=== PATIENT | male | born 1965 | race Hispanic/Latino ===

== ENCOUNTER 2020-06-02 14:48 | Inpatient (IN) | payer SELFPAY ==
[~2020-06-02] VITALS: Ht 152.4 cm; Wt 85.3 kg
[2020-06-02 15:24] LABS: BASOPHILS % 0.1 % (0.0-1.0); EOSINOPHILS % 0.1 % (0.0-6.0); HEMATOCRIT 41.9 % (38.2-49.6); HEMOGLOBIN 15.2 g/dL (14.0-18.0); LYMPHOCYTES # (AUTO) 1.1 (1.0-3.2); LYMPHOCYTES % 13.3 % (18.0-39.1); MEAN CORPUSCULAR HEMOGLOBIN 32.3 pg (28-32); MEAN CORPUSCULAR HGB CONC 36.3 g/dL (31-35); MONOCYTES # (AUTO) 0.3 (0.2-0.8); MONOCYTES % 3.4 % (4.4-11.3); NEUTROPHILS # (AUTO) 6.6 (2.1-6.9); NEUTROPHILS % 82.6 % (38.7-80.0); PLATELET COUNT 206 x10e3/uL (140-360); RED BLOOD COUNT 4.71 x10e6/uL (4.3-5.7); RED CELL DISTRIBUTION WIDTH 11.6 % (11.7-14.4)
--- NOTE | 2020-06-02 15:40 | Diagnostic Imaging Report ---
EXAM: CHEST SINGLE (PORTABLE) DATE: 06/02/2020 3:22 PM INDICATION: Headache, shortness of breath, fever COMPARISON: None FINDINGS: The trachea is midline. There are patchy airspace opacities identified within the lungs bilaterally with a lower lung zone predominance. There is no evidence for pneumothorax or significant volume pleural effusion. The cardiomediastinal silhouette is within normal limits. No acute osseous abnormality is identified. IMPRESSION: Patchy airspace opacities identified throughout the lungs bilaterally which can be seen in the setting of a multifocal/viral infectious process. Signed by: Dr. Sergei Hudson MD on 06/02/2020 3:36 PM
[2020-06-02 15:50] LABS: ALANINE AMINOTRANSFERASE 32 IU/L (0-55); ALBUMIN 2.7 g/dL (3.5-5.0); ALBUMIN/GLOBULIN RATIO 0.6 (0.8-2.0); ALKALINE PHOSPHATASE 65 IU/L (40-150); ANION GAP 12.4 mmol/L (8-16); BLOOD UREA NITROGEN 9 mg/dL (7-26); BUN/CREATININE RATIO 10 (6-25); CALCIUM 8.7 mg/dL (8.4-10.2); CARBON DIOXIDE 22 mmol/L (22-29); CHLORIDE 101 mmol/L (98-107); CREATININE, SERUM 0.94 mg/dL (0.72-1.25); EST GLOMERULAR FILTRATION RATE > 60 ML/MIN (60-); GLUCOSE 251 mg/dL (74-118); POTASSIUM 3.4 mmol/L (3.5-5.1); SODIUM 132 mmol/L (136-145)
--- NOTE | 2020-06-02 16:03 | Emergency Department Note ---
History of Present Illnes History of Present Illness Chief Complaint: COVID PUI History of Present Illness This is a 55 year old male arrived to the ED with complaints of cough and shortness of breath . Chief Complaint Comment SOB, HEADACHE, FEVER. AAOX4. TESTING FOUR DAYS AGO COVID NEG, BUT SATS 86% RA. PT AMBULATORY. Historian: Patient Arrival Mode: Car Onset (how long ago): day(s) Duration (how long): day(s) Timing of current episode: constant Progression: worsening Chronicity: new Relieving factors: none Exacerbating factors: none Past Medical/Family History Physician Review I have reviewed the patient's past medical and family history. Any updates have been documented here. Past Medical History Recent Fever: No Clinical Suspicion of Infectio: No New/Unexplained Change in Ment: No Past Medical History: Diabetes Social History Smoking Cessation: Current every day smoker Counseling Performed: No Alcohol Use: Social Any Illegal Drug Use: No Physically hurt or threatened: No Other Any Pre-Existing Lines (PICC,: No Review of Systems Review of Systems Constitutional: Reports no symptoms, Reports as per HPI, Reports chills, Reports fever EENTM: Reports no symptoms Cardiovascular: Reports no symptoms Respiratory: Reports as per HPI Gastrointestinal: Reports no symptoms Genitourinary: Reports no symptoms Musculoskeletal: Reports no symptoms Integumentary: Reports no symptoms Neurological: Reports no symptoms Psychological: Reports no symptoms Endocrine: Reports no symptoms Hematological/Lymphatic: Reports no symptoms Physical Exam Related Data Allergies: Coded Allergies: No Known Allergies (Unverified , 06/02/20) Triage Vital Signs Vital Signs Date Time Temp Pulse Resp B/P (MAP) Pulse Ox O2 Delivery O2 Flow Rate FiO2 06/02/20 14:57 100.5 106 28 109/66 86 Room Air 06/02/20 15:22 4.0 Vital signs reviewed: Yes Physical Exam CONSTITUTIONAL Constitutional: Present well-developed, Present well-nourished, Present ill appearing HENT HENT: Present normocephalic, Present atraumatic, Present oropharynx clear/moist, Present nose normal HENT L/R: Present left ext ear normal, Present right ext ear normal EYES Eyes: Reports PERRL, Reports conjunctivae normal NECK Neck: Present ROM normal PULMONARY Pulmonary: Present effort normal, Present respiratory distress CARDIOVASCULAR Cardiovascular: Present regular rhythm, Present heart sounds normal, Present capillary refill normal, Present normal rate GASTROINTESTINAL Abdominal: Present soft, Present nontender, Present bowel sounds normal GENITOURINARY Genitourinary: Present exam deferred SKIN Skin: Present warm, Present dry MUSCULOSKELETAL Musculoskeletal: Present ROM normal NEUROLOGICAL Neurological: Present alert, Present oriented x 3, Present no gross motor or sensory deficits PSYCHOLOGICAL Psychological: Present mood/affect normal, Present judgement normal Results Laboratory Result Diagram: 06/02/20 1504 Laboratory Laboratory Tests Test 06/02/20 15:04 06/02/20 15:00 White Blood Count 8.02 x10e3/uL (4.8-10.8) Red Blood Count 4.71 x10e6/uL (4.3-5.7) Hemoglobin 15.2 g/dL (14.0-18.0) Hematocrit 41.9 % (38.2-49.6) Mean Corpuscular Volume 89.0 fL (81-99) Mean Corpuscular Hemoglobin 32.3 pg (28-32) Mean Corpuscular Hemoglobin Concent 36.3 g/dL (31-35) Red Cell Distribution Width 11.6 % (11.7-14.4) Platelet Count 206 x10e3/uL (140-360) Neutrophils (%) (Auto) 82.6 % (38.7-80.0) Lymphocytes (%) (Auto) 13.3 % (18.0-39.1) Monocytes (%) (Auto) 3.4 % (4.4-11.3) Eosinophils (%) (Auto) 0.1 % (0.0-6.0) Basophils (%) (Auto) 0.1 % (0.0-1.0) Neutrophils # (Auto) 6.6 (2.1-6.9) Lymphocytes # (Auto) 1.1 (1.0-3.2) Monocytes # (Auto) 0.3 (0.2-0.8) Eosinophils # (Auto) 0.0 (0.0-0.4) Basophils # (Auto) 0.0 (0.0-0.1) Absolute Immature Granulocyte (auto 0.04 x10e3/uL (0-0.1) Lab results reviewed: Yes Imaging Imaging results reviewed: Yes Critical Care Time Total Critical Care Time (min): 65 Critical care time exclusive o: separately billable procedures Critcal care necessary due to: respiratory failure Assessment & Plan Medical Decision Making MDM 55-year-old male arrives the ED marked hypoxia, symptoms related to the coronavirus. Patient required 6 L supplemental oxygen, admitted to the Covid unit for respiratory monitoring. Ceftriaxone, Zithromax and Decadron given emergency department. Patient high risk of morbidity and mortality Assessment & Plan Final Impression: (1) COVID-19 (2) Acute respiratory distress Depart Disposition: ADMITTED Last Vital Signs Date Time Temp Pulse Resp B/P (MAP) Pulse Ox O2 Delivery O2 Flow Rate FiO2 06/02/20 15:25 92 Nasal Cannula 6.0 06/02/20 14:57 100.5 106 28 Home Meds Reported Medications Metformin Hcl (METFORMIN HCL) 500 Mg Tablet, 1000 MG PO BID, #60 TAB 06/02/20 DAKOTA SHEARER DO Jun 02, 2020 16:03
--- NOTE | 2020-06-02 16:18 | NUR ---
Recvd patient from ER, AAOx3, Not in any distress, call light in reach
--- NOTE | 2020-06-02 17:40 | NUR ---
Called Dr Larsen, new orders recvd, Dr Dsouza aware about the consult
[2020-06-02 18:08] VITALS: BP 110/76
[2020-06-02] MEDS ORDERED: METFORMIN HCL500 MG PO (18:34)
[2020-06-02] MEDS ORDERED: POTASSIUM CHLORIDE 20 MEQ TAB CR PO SCH (18:45)
[2020-06-02] MEDS ORDERED: SODIUM CHLORIDE 0.9% 1000ML 1,000 ML ONE (18:50)
[2020-06-02] MEDS: SODIUM CHLORIDE 0.9% 1000ML 1,000 ML IV SCH (19:12)
[2020-06-02] MEDS ORDERED: DEXTROSE 50% SYRINGE 50 ML IV PRN (19:15)
--- NOTE | 2020-06-02 19:27 | NUR ---
Patient received lying in bed. AAO x 3. Patient had no complaints of pain. Respirations even and non-labored on 5L NC. Patient instructed to call for assistance when needed. Safety measures in place. Call light within reach.
[2020-06-02] MEDS ORDERED: HYDROCODONE/CHLORPHENIRAMINE 5 ML LIQCR PO PRN (19:30)
[2020-06-02] MEDS ORDERED: ZOLPIDEM TARTRATE 5 MG TAB PO PRN (19:30)
[2020-06-02 20:00] VITALS: BP 134/77
[2020-06-02 20:39] LABS: LYMPHOCYTES % (MANUAL) 10 % (19-48); MONOCYTES % (MANUAL) 7 % (3.4-9.0); NEUTROPHILS % (MANUAL) 80 % (40-74); PLATELET MORPHOLOGY COMMENT NORMAL; RBC MORPHOLOGY COMMENT NORMAL
[2020-06-02 20:40] LABS: PLATELET ESTIMATE ADEQUATE
[2020-06-02] MEDS: CEFTRIAXONE SOD 1 GM/NS 50 ML 50 ML IV SCH (20:41)
--- NOTE | 2020-06-02 20:55 | Consultation ---
DATE OF CONSULTATION: Pulmonary Critical Care consultation CHIEF COMPLAINT: Coughing and headache along with fevers. HISTORY OF PRESENT ILLNESS: The patient is a 55-year-old man. He has a history of recently diagnosed diabetes. He takes metformin. He denies any prior history of asthma or heart disease. He complains of feeling sick for 5 days. He has noted an "uncontrollable cough." He also has some fevers and some dyspnea. He came to the emergency department and was found to have bilateral infiltrates on his chest x-ray, suggestive of viral pneumonia. PAST MEDICAL HISTORY: 1. Diabetes. 2. No prior heart disease. 3. No prior asthma or lung disease. PAST SURGICAL HISTORY: Noncontributory. ALLERGIES: NO KNOWN DRUG ALLERGIES. FAMILY HISTORY: Noncontributory. REVIEW OF SYSTEMS: The patient has fevers. There is some headache. He has no neck pain. He has some dyspnea and some cough. He has no chest pain. He has no nausea or vomiting. He has no leg edema. PHYSICAL EXAMINATION: VITAL SIGNS: The patient is afebrile. The blood pressure is 110/66, saturation is 92%. He is on 5 L. Respiratory rate is 20 to 25. HEENT: Shows no facial swelling or erythema. LYMPHATIC: Shows no submandibular, cervical, or supraclavicular adenopathy. CARDIAC: Reveals regular rate and rhythm with normal S1 and S2. LUNGS: Auscultation of lungs reveals crackles at the bases. There is no wheezing. ABDOMEN: Soft and nontender. There is no rebound or guarding. EXTREMITIES: Shows no leg edema or calf tenderness. There is no cyanosis or clubbing. SKIN: Shows no rashes. NEUROLOGICAL: Shows no focal abnormalities. LABORATORY DATA: BUN to creatinine ratio is normal. Albumin is 2.7. Sodium is 132. White blood cell count is 8 and hemoglobin is 15.2. The platelet count is 206. RADIOGRAPHIC DATA: Chest x-ray shows bilateral infiltrates. IMPRESSION: 1. Viral pneumonia and COVID-19 infection. 2. Diabetes. 3. Headache. PLAN: 1. Oxygen as needed. 2. Lovenox. 3. The patient should be a candidate for remdesivir. 4. Dexamethasone. 5. Rescue inhaler. 6. CT scan of the head. 7. Monitor and control blood sugars. MD BRAYAN Rodriguez/AL /[id number]
[2020-06-02] MEDS: INSULIN LISPRO 100 UNIT/1 ML 3ML VIAL SQ SCH (21:00)
--- NOTE | 2020-06-02 21:06 | Diagnostic Imaging Report ---
CT BRAIN WO HISTORY: Headache COMPARISON: None. TECHNIQUE: Noncontrast axial scans were obtained from skull base to the vertex. Coronal and sagittal reconstructions obtained from the axial data. One or more of the following dose reduction techniques were used: Automated exposure control, adjustment of the mA and/or kV according to patient size, and/or utilization of iterative reconstruction technique. Motion and beam hardening artifacts obscure some details. DISCUSSION: Scalp/Skull: Unremarkable. Brain sulci: Appropriate for patient's age. Ventricles: Normal in size and configuration. No hydrocephalus. Extra-axial spaces: No masses or fluid collections. Carotid siphon calcifications are present. Parenchyma: No abnormal densities. No mass, hemorrhage, or large vascular territory acute infarct. Dural sinuses: No abnormal densities. Sellar/Suprasellar region: Intact. Skull base: Intact. Incidental findings: None. IMPRESSION: No acute intracranial abnormalities. Signed by: Dr. Juancho Dallas M.D. on 06/02/2020 9:02 PM
[2020-06-02] MEDS: ACETAMINOPHEN 325 MG TAB PO PRN ×2 (21:49→22:18)
[2020-06-02] MEDS: AZITHROMYCIN 500MG/NS 250 ML 250 ML IV SCH (22:00)
[2020-06-02] MEDS: ENOXAPARIN SOD INJ 40 MG/0.4 ML SYR SC SCH (22:18)
--- NOTE | 2020-06-02 23:55 | NUR ---
History of present illness Chief complaint: Shortness of breath Fever Cough History of present illness: 55-year-old male with past medical history of diabetes, presented to the ER complaining of about 1 week of worsening shortness of breath, cough, headache, chills and fever, the patient reports he got tested for COVID-19 4 days ago and the results were negative. He denies chest pain, abdominal pain, nausea, vomiting, diarrhea, syncope, loss of consciousness or any other signs and symptoms. Admission vital signs: Temperature 100.5, pulse 106, respirations 20, pulse ox 86% on room air, BP 109/66. Abnormal labs: Hyponatremia 132, hypokalemia 3.4, hyperglycemia 251, hypoalbuminemia 2.7, COVID-19 PCR pending. Chest x-ray: Patchy airspace opacities identified throughout the lungs bilaterally which can be seen in the setting of a multifocal/viral infectious process. Brain CT was normal. Review of systems: Constitutional: Reports fever and chills. HEENT: Reports headache, no nasal congestion, no neck pain. Cardiovascular: no chest pain Respiratory: Reports coughing, shortness of breath. GI: Denies Nausea/V/D, hematemesis, melena : Denies Hematuria, Dysuria, Frequency Musculoskeletal: No signifcant deformity or swelling of the joints. Neuro: Denies Dizziness, Confusion, No focal weakness Psych: No anxiety or depression. Normal mood and affect Skin: No rashes, Itching, Hives Past medical history: Diabetes mellitus. Denies heart disease, denies lung disease. Past surgical history: Noncontributory. Social history: Non-smoker Allergies: No known drug allergies. Physical exam: Vital signs: Temperature 98.9, BP 110/66, respirations 24, saturation 92% on 5 L oxygen. HEENT: No gross abnormalities Neck: Supple no JVD Lungs: Crackles at the lung bases, expanding symmetrically. Heart: Regular rate and rhythm, no murmurs no gallops Abdomen: Soft non tender, no guarding. Extremities: No edema Neurologic: Alert oriented 3, no focal weakness. Psychiatrist: Normal mood, normal judgment. Skin: No rashes Lab data: Hyponatremia 132, hypokalemia 3.4, hyperglycemia 251, hypoalbuminemia 2.7, COVID-19 PCR pending. Imaging: Chest x-ray: Patchy airspace opacities identified throughout the lungs bilaterally which can be seen in the setting of a multifocal/viral infectious process. Brain CT was normal. Assessment: Possible COVID-19 pneumonia Diabetes mellitus Hyperglycemia Hyponatremia Hypokalemia Plan of care: Reconcile home medications Droplet precaution Oxygen as needed BP control Glycemic control Heart rate controlled Pain control Electrolyte control Antibiotics Steroids Inhaler DVT/GI prophylaxis Inflammation markers Serial chest x-rays Pulmonology consult Plan discussed with patient and nursing staff.
[2020-06-03] VITALS (11 sets, daily range): BP systolic 93–126; BP diastolic 61–81
[2020-06-03] MEDS: SODIUM CHLORIDE 0.9% 1000ML 1,000 ML IV SCH (04:54)
[2020-06-03 06:04] LABS: BASOPHILS % 0.1 % (0.0-1.0); EOSINOPHILS # (AUTO) 0.1 (0.0-0.4); EOSINOPHILS % 0.6 % (0.0-6.0); HEMATOCRIT 41.7 % (38.2-49.6); LYMPHOCYTES # (AUTO) 1.4 (1.0-3.2); LYMPHOCYTES % 16.1 % (18.0-39.1); MEAN CORPUSCULAR HEMOGLOBIN 32.5 pg (28-32); MEAN CORPUSCULAR VOLUME 90.3 fL (81-99); MONOCYTES # (AUTO) 0.3 (0.2-0.8); MONOCYTES % 3.9 % (4.4-11.3); NEUTROPHILS # (AUTO) 6.8 (2.1-6.9); NEUTROPHILS % 78.8 % (38.7-80.0); PLATELET COUNT 212 x10e3/uL (140-360); RED BLOOD COUNT 4.62 x10e6/uL (4.3-5.7)
[2020-06-03 06:25] LABS: ALANINE AMINOTRANSFERASE 27 IU/L (0-55); ALBUMIN 2.4 g/dL (3.5-5.0); ALBUMIN/GLOBULIN RATIO 0.5 (0.8-2.0); ALKALINE PHOSPHATASE 64 IU/L (40-150); ANION GAP 12.7 mmol/L (8-16); BLOOD UREA NITROGEN 8 mg/dL (7-26); BUN/CREATININE RATIO 11 (6-25); CALCIUM 8.6 mg/dL (8.4-10.2); CARBON DIOXIDE 22 mmol/L (22-29); CHLORIDE 104 mmol/L (98-107); CREATININE, SERUM 0.74 mg/dL (0.72-1.25); EST GLOMERULAR FILTRATION RATE > 60 ML/MIN (60-); GLUCOSE 181 mg/dL (74-118); POTASSIUM 3.7 mmol/L (3.5-5.1); SODIUM 135 mmol/L (136-145)
[2020-06-03] MEDS: DEXAMETHASONE SOD PHOS INJ 4 MG/ML VIAL IV SCH (06:51)
--- NOTE | 2020-06-03 07:00 | NUR ---
Shift report given to oncoming nurse.
[2020-06-03] MEDS: ENOXAPARIN SOD INJ 40 MG/0.4 ML SYR SC SCH ×2 (09:22→21:10)
[2020-06-03] MEDS: INSULIN LISPRO 100 UNIT/1 ML 3ML VIAL SQ SCH ×4 (09:27→21:11)
--- NOTE | 2020-06-03 09:30 | NUR ---
patient o2 saturation 89% on 5L. switched patient to highflow 12L nc. patient instructed to lay on side or belly as much as possible. o2 up to 94%. wctm.
--- NOTE | 2020-06-03 12:57 | NUR ---
patient switched to airvo. 30/80. saturation 93%
--- NOTE | 2020-06-03 13:00 | Progress Note ---
DATE: Pulmonary Critical Care Progress Note SUBJECTIVE: The patient reports symptomatic improvement. He has less dyspnea, but he is still requiring high-flow nasal cannula. PHYSICAL EXAMINATION: VITAL SIGNS: The blood pressure is 93/77 and saturation is 92% on 12 L. HEENT: Shows no facial swelling or erythema. LYMPHATIC: Shows no submandibular, cervical, or supraclavicular adenopathy. CARDIAC: Reveals regular rate and rhythm with normal S1 and S2. LUNGS: Auscultation of lungs reveals clear breath sounds bilaterally. There is no wheezing. ABDOMEN: Soft and nontender. There is no rebound or guarding. EXTREMITIES: Shows no leg edema or calf tenderness. There is no cyanosis or clubbing. SKIN: Shows no rashes. NEUROLOGICAL: Shows no focal abnormalities. LABORATORY DATA: White blood cell count is 8.62 and the hemoglobin is 15. The platelet count is 212. The BUN to creatinine ratio is normal. The albumin is 2.4. The electrolytes are within normal limits. IMPRESSION: 1. Acute respiratory failure. 2. Viral pneumonia and COVID-19 infection. 3. Diabetes. PLAN: 1. Switch the patient to Airvo. 2. Begin remdesivir. 3. Dexamethasone. 4. Rescue inhaler as needed. 5. Lovenox. Brayden De Dios MD [facility] /[id number]
--- NOTE | 2020-06-03 15:58 | NUR ---
patients oxygen level went to 87% on airvo machine. dr block notified and settings to airvo changed.
--- NOTE | 2020-06-03 16:20 | NUR ---
patient to be moved to ICU. waiting for bed assignment at this time. patient's and daughter updated. will update them with ICU assignment.
--- NOTE | 2020-06-03 18:00 | NUR ---
report called to krystle MOREJON in ICU.
--- NOTE | 2020-06-03 18:17 | NUR ---
lab called results to RN. patient is positive for covid.
--- NOTE | 2020-06-03 18:23 | NUR ---
and daughter updated to new room assignment and +covid results.
--- NOTE | 2020-06-03 19:58 | NUR ---
Patient transferred to CICU --room 14.
[2020-06-03] MEDS: AZITHROMYCIN 500MG/NS 250 ML 250 ML IV SCH (21:09)
[2020-06-03] MEDS: CEFTRIAXONE SOD 1 GM/NS 50 ML 50 ML IV SCH (21:09)
--- NOTE | 2020-06-03 23:13 | NUR ---
Patient seen and evaluated on 06/03/2012 Subjective: The patient is complaining shortness of breath. He was in a prone position at the time of my evaluation. There has been no abdominal pain no nausea vomiting no diarrhea. Objective: Patient alert oriented person time place. Patient in mild respiratory distress. Vital signs blood pressure: 1-70 6/70, respiration 20, pulse 83, temperature 99.0. HEENT: No gross abnormalities Neck: Supple no JVD Lungs: Clear to auscultation Heart: Regular rate and rhythm, no murmurs no gallops Abdomen: Soft non tender, no guarding. Extremities: No edema Neurologic: Alert oriented 3, no focal weakness. Psychiatrist: Normal mood, normal judgment. Skin: No rashes Laboratory data: CBC reviewed 51 0, WBC 6.82, platelet count 212,000. K profile revealed sodium 135, potassium 3.7, chloride 104, CO2 22, BUN 8, creatinine 0.74 Assessment: COVID-19 pneumonia Acute respiratory failure Diabetes mellitus type 2 uncontrolled Hyponatremia resolved Plan of care: Remdisivir Dexamethasone Recent illness. Continue Lovenox
[2020-06-04] VITALS (25 sets, daily range): BP systolic 91–126; BP diastolic 55–91
[2020-06-04 04:14] LABS: BASOPHILS % 0.1 % (0.0-1.0); EOSINOPHILS % 0.2 % (0.0-6.0); HEMATOCRIT 39.7 % (38.2-49.6); HEMOGLOBIN 14.1 g/dL (14.0-18.0); LYMPHOCYTES # (AUTO) 1.3 (1.0-3.2); LYMPHOCYTES % 13.5 % (18.0-39.1); MEAN CORPUSCULAR HEMOGLOBIN 32.1 pg (28-32); MEAN CORPUSCULAR HGB CONC 35.5 g/dL (31-35); MEAN CORPUSCULAR VOLUME 90.4 fL (81-99); MONOCYTES # (AUTO) 0.4 (0.2-0.8); MONOCYTES % 4.1 % (4.4-11.3); NEUTROPHILS # (AUTO) 7.6 (2.1-6.9); NEUTROPHILS % 81.8 % (38.7-80.0); PLATELET COUNT 204 x10e3/uL (140-360); RED BLOOD COUNT 4.39 x10e6/uL (4.3-5.7); RED CELL DISTRIBUTION WIDTH 11.9 % (11.7-14.4)
[2020-06-04 04:33] LABS: ALANINE AMINOTRANSFERASE 26 IU/L (0-55); ALBUMIN 2.2 g/dL (3.5-5.0); ALBUMIN/GLOBULIN RATIO 0.5 (0.8-2.0); ALKALINE PHOSPHATASE 64 IU/L (40-150); ANION GAP 15.7 mmol/L (8-16); BLOOD UREA NITROGEN 13 mg/dL (7-26); BUN/CREATININE RATIO 17 (6-25); CALCIUM 8.5 mg/dL (8.4-10.2); CARBON DIOXIDE 21 mmol/L (22-29); CHLORIDE 104 mmol/L (98-107); CREATININE, SERUM 0.76 mg/dL (0.72-1.25); EST GLOMERULAR FILTRATION RATE > 60 ML/MIN (60-); GLUCOSE 213 mg/dL (74-118); POTASSIUM 4.7 mmol/L (3.5-5.1); SODIUM 136 mmol/L (136-145)
[2020-06-04] MEDS: DEXAMETHASONE SOD PHOS INJ 4 MG/ML VIAL IV SCH (05:52)
[2020-06-04] MEDS: ENOXAPARIN SOD INJ 40 MG/0.4 ML SYR SC SCH ×2 (08:07→20:46)
[2020-06-04] MEDS: INSULIN LISPRO 100 UNIT/1 ML 3ML VIAL SQ SCH ×4 (08:07→20:47)
--- NOTE | 2020-06-04 14:04 | Progress Note ---
DATE: SUBJECTIVE: The patient is now in the Intensive Care Unit. He is on Airvo at 60 L with 90%. He still has some dyspnea. He has some cough. PHYSICAL EXAMINATION: VITAL SIGNS: The blood pressure is 111/73 and the pulse is 64. The saturation is 95%. HEENT: Shows no facial swelling or erythema. The oropharynx is normal. LYMPHATIC: Shows no submandibular, cervical or supraclavicular adenopathy. CARDIAC: Reveals regular rate and rhythm with normal S1 and S2. LUNGS: Auscultation of lungs reveals crackles at the bases. There is no wheezing. ABDOMEN: Soft and nontender. There is no rebound or guarding. EXTREMITIES: Shows no leg edema or calf tenderness. There is no cyanosis or clubbing. SKIN: Shows no rashes. LABORATORY DATA: White blood cell count is 9.2 and hemoglobin is 14.1. The platelet count is 204. BUN to creatinine ratio is normal. The other electrolytes are within normal limits. IMPRESSION: 1. Acute respiratory failure. 2. Viral pneumonia and COVID-19 infection. 3. Diabetes. PLAN: 1. Continue to wean L flow and oxygen as tolerated. 2. Complete dexamethasone. 3. Lovenox. 4. Antibiotics. 5. Rescue inhaler as needed. Brayden De Dios MD [facility] /[id number]
--- NOTE | 2020-06-04 16:22 | NUR ---
Infectious disease consultation this patient Seen and examined chart reviewed events noted he is currently in the intensive. he patient is now in the Intensive Care Unit. He is on Airvo at 60 L with 90%. The patient is a 55-year-old man. He has a history of recently diagnosed diabetes. He takes metformin. He denies any prior history of asthma or heart disease. He complains of feeling sick for more than 2 weeks but she has been getting progressively worse the last 5 days with shortness of breath and cough symptoms . He has noted an "uncontrollable cough." He also has some fevers and some dyspnea. He came to the emergency department and was found to have bilateral infiltrates on his chest x-ray, suggestive of viral pneumonia. patient was admitted early on the floor today he was transferred to ICU I am asked to see him PAST MEDICAL HISTORY: 1. Diabetes. 2. No prior heart disease. 3. No prior asthma or lung disease. PAST SURGICAL HISTORY: Noncontributory. ALLERGIES: NO KNOWN DRUG ALLERGIES. FAMILY HISTORY: Noncontributory. REVIEW OF SYSTEMS: The patient has fevers. There is some headache. He has no neck pain. He has some dyspnea and some cough. He has no chest pain. He has no nausea or vomiting. He has no leg edema. PHYSICAL EXAMINATION: VITAL SIGNS: The patient is afebrile. The blood pressure is 110/66, saturation is 92%. He is on 5 L. Respiratory rate is 20 to 25. HEENT: Shows no facial swelling or erythema. LYMPHATIC: Shows no submandibular, cervical, or supraclavicular adenopathy. CARDIAC: Reveals regular rate and rhythm with normal S1 and S2. LUNGS: Auscultation of lungs reveals crackles at the bases. There is no wheezing. ABDOMEN: Soft and nontender. There is no rebound or guarding. EXTREMITIES: Shows no leg edema or calf tenderness. There is no cyanosis or clubbing. SKIN: Shows no rashes. NEUROLOGICAL: Shows no focal abnormalities. LABORATORY DATA: BUN to creatinine ratio is normal. Albumin is 2.7. Sodium is 132. White blood cell count is 8 and hemoglobin is 15.2. The platelet count is 206. RADIOGRAPHIC DATA: Chest x-ray shows bilateral infiltrates. IMPRESSION: 1. Viral pneumonia and COVID-19 infection. 2. Diabetes. 3. Headache. respiratory failure discussed with medical team and we will Rocephin 1 g daily 5 days azithromycin 5 mg daily for 3 days Decadron 6 kg daily for 10 days Lovenox oxygen as needed daily CBC daily Panel will follow acute the patient isolation for now
--- NOTE | 2020-06-04 17:18 | NUR ---
Date of service: 06/04/2020 Events noted. Chart reviewed. Patient be followed by pulmonary. Presently on airborne at 60 L with 90%. Subjective: The patient is feeling better. Denies nausea, no vomiting, no abdominal pain, no diarrhea Objective: Patient alert oriented to person time place Vital signs: Blood pressure 125/75, respiration 15, pulse 67, temperature 99.0 HEENT: No gross abnormalities Neck: Supple no JVD Lungs: Clear to auscultation Heart: Regular rate and rhythm, no murmurs no gallops Abdomen: Soft non tender, no guarding. Extremities: No edema Neurologic: Alert oriented 3, no focal weakness. Psychiatrist: Normal mood, normal judgment. Skin: No rashes Lab data: CBC revealed hemoglobin 14.1, WBC 9.2; platelet count 204,000 Assessment: COVID-19 pneumonia Acute respiratory failure Diabetes mellitus type 2 uncontrolled Hyponatremia resolved Plan of care: Pulmonary evaluation noted. Plan is to continue to wean L flow and oxygen as tolerated. Remdisivir Dexamethasone Recent illness. Continue Lovenox
[2020-06-04] MEDS: CEFTRIAXONE SOD 1 GM/NS 50 ML 50 ML IV SCH (20:08)
[2020-06-04] MEDS: AZITHROMYCIN 500MG/NS 250 ML 250 ML IV SCH (20:47)
[2020-06-05] VITALS (23 sets, daily range): BP systolic 94–116; BP diastolic 60–76
[2020-06-05] MEDS: DEXAMETHASONE SOD PHOS INJ 4 MG/ML VIAL IV SCH (05:10)
[2020-06-05 06:26] LABS: BASOPHILS % 0.1 % (0.0-1.0); EOSINOPHILS % 0.2 % (0.0-6.0); HEMATOCRIT 39.2 % (38.2-49.6); HEMOGLOBIN 14.8 g/dL (14.0-18.0); LYMPHOCYTES # (AUTO) 1.7 (1.0-3.2); MEAN CORPUSCULAR HEMOGLOBIN 35.9 pg (28-32); MEAN CORPUSCULAR HGB CONC 37.8 g/dL (31-35); MEAN CORPUSCULAR VOLUME 95.1 fL (81-99); MONOCYTES # (AUTO) 0.4 (0.2-0.8); MONOCYTES % 3.7 % (4.4-11.3); NEUTROPHILS # (AUTO) 8.3 (2.1-6.9); NEUTROPHILS % 79.5 % (38.7-80.0); PLATELET COUNT 171 x10e3/uL (140-360); RED BLOOD COUNT 4.12 x10e6/uL (4.3-5.7); RED CELL DISTRIBUTION WIDTH 14.4 % (11.7-14.4)
[2020-06-05 06:37] LABS: ANION GAP 12.7 mmol/L (8-16); BLOOD UREA NITROGEN 17 mg/dL (7-26); BUN/CREATININE RATIO 26 (6-25); CALCIUM 8.5 mg/dL (8.4-10.2); CARBON DIOXIDE 22 mmol/L (22-29); CHLORIDE 105 mmol/L (98-107); CREATININE, SERUM 0.65 mg/dL (0.72-1.25); EST GLOMERULAR FILTRATION RATE > 60 ML/MIN (60-); GLUCOSE 131 mg/dL (74-118); POTASSIUM 3.7 mmol/L (3.5-5.1); SODIUM 136 mmol/L (136-145)
[2020-06-05] MEDS: INSULIN LISPRO 100 UNIT/1 ML 3ML VIAL SQ SCH ×4 (07:39→21:00)
[2020-06-05] MEDS: ENOXAPARIN SOD INJ 40 MG/0.4 ML SYR SC SCH (07:40)
--- NOTE | 2020-06-05 07:46 | Diagnostic Imaging Report ---
EXAMINATION: CHEST SINGLE (PORTABLE) COMPARISON: Chest x-ray 06/02/2020 INDICATION: ^viral pneumonia ^[id number] ^[id number] DISCUSSION: HEART AND MEDIASTINUM: The cardiomediastinal silhouette is unremarkable. LINES: None. LUNGS/PLEURA: Course of the lower interstitial airspace opacities are redemonstrated in a predominantly peripheral pattern. No new findings. BONES AND SOFT TISSUES: Unremarkable. IMPRESSION: Stable airspace opacities consistent with multifocal pneumonia including viral pneumonias. Signed by: Dr. Jb Khan MD on 06/05/2020 7:43 AM
--- NOTE | 2020-06-05 10:07 | NUR ---
infectious disease progress note The patient remains in the intensive care unit oxygen demand He still has some dyspnea. He has some cough. PHYSICAL EXAMINATION: VITAL SIGNS: The blood pressure is 111/73 and the pulse is 64. The saturation is 95%. HEENT: Shows no facial swelling or erythema. The oropharynx is normal. LYMPHATIC: Shows no submandibular, cervical or supraclavicular adenopathy. CARDIAC: Reveals regular rate and rhythm with normal S1 and S2. LUNGS: Auscultation of lungs reveals crackles at the bases. There is no wheezing. ABDOMEN: Soft and nontender. There is no rebound or guarding. EXTREMITIES: Shows no leg edema or calf tenderness. There is no cyanosis or clubbing. SKIN: Shows no rashes. LABORATORY DATA: White blood cell count is 9.2 and hemoglobin is 14.1. The platelet count is 204. BUN to creatinine ratio is normal. The other electrolytes are within normal limits. IMPRESSION: 1. Acute respiratory failure. 2. Viral pneumonia and COVID-19 infection. 3. Diabetes. the patient remains in intensive care unit prognosis remains guarded continue as ordered discussed the medical team continue with oxygen to finish plan of medication
--- NOTE | 2020-06-05 13:48 | Progress Note ---
DATE: 06/05/2020 Internal Medicine Progress Note This is coverage for Dr. Alfred Larsen. SUBJECTIVE: Mr. Hurtado was seen and examined at bedside. Currently, he is on 60 L/minute of oxygen flow. 92% FiO2. The patient is feeling slightly better in terms of work of breathing compared to previous days. He is eating about half his meals. Chest x-ray was also done and is stable over the last 3 days. REVIEW OF SYSTEMS: No headaches. No rash. OBJECTIVE: VITAL SIGNS: Reviewed per the chart record. Physical exam limited, as the patient is coughing without a face mask and due to COVID precautions were taken. IMPRESSION AND PLAN: 1. COVID-19 pneumonitis. 2. Acute respiratory failure, hypoxemic, on advanced oxygen salvage. 3. Diabetes. 4. Hyponatremia, better. 5. Severe hypoalbuminemia. Continue to wean high-flow nasal cannula oxygen as feasible. Steroids per designated Pulmonary or ID expert. Intermittent chest x-rays as needed. The patient is on DVT prophylaxis. Also antibiotics noted. MD CARA Kelly/AL /[id number]
--- NOTE | 2020-06-05 13:53 | Consultation ---
DATE OF CONSULTATION: 06/04/2020 HISTORY OF PRESENT ILLNESS: This patient is a 55-year-old male with history of diabetes mellitus. The patient tells me that he has been sick for more than 2 weeks. The patient comes in with shortness of breath and cough and fever. He came in yesterday and was admitted. He currently moved to intensive care unit. The patient is currently lying in bed comfortably. The patient is on Rocephin, azithromycin, dexamethasone as well as Lovenox. The patient is currently in intensive care unit for worsening condition from last time, he says he is feeling slightly better. The patient is on Airvo at 60 L. REVIEW OF SYSTEMS: Besides the cough, he also fatigues. PHYSICAL EXAMINATION: GENERAL: He is currently alert and oriented. VITALS: Stable, currently afebrile. HEENT: He is not icteric. NECK: Supple. CHEST: Crackles bilaterally. HEART: S1 and S2. ABDOMEN: Soft. Bowel sounds present. EXTREMITIES: No edema. ASSESSMENT AND PLAN: Respiratory failure, COVID-19, diabetes mellitus, bacterial pneumonia. The patient apparently has been sick for a few weeks before he came to us. He is agreed with the current choice of plan. Discussed with the patient and discussed with medical team. We will follow with you. MD MARA Sarmiento/AL /[id number]
--- NOTE | 2020-06-05 19:40 | Progress Note ---
DATE: SUBJECTIVE: The patient does not report any new symptoms. He still has some dyspnea on exertion. He has a mild cough. PHYSICAL EXAMINATION: VITAL SIGNS: The blood pressure is 112/72 and saturation is 92%. His respiratory rate is in the mid 20s. He is on an Airvo at 60 L with 90%. HEENT: Shows no facial swelling or erythema. LYMPHATIC: Shows no submandibular or cervical adenopathy. CARDIAC: Reveals regular rate and rhythm with normal S1 and S2. LUNGS: Auscultation of lungs reveals crackles at the bases. There is no wheezing. ABDOMEN: Soft and nontender. There is no rebound or guarding. EXTREMITIES: Shows no leg edema or calf tenderness. There is no cyanosis or clubbing. SKIN: Shows no rash. NEUROLOGICAL: Shows no focal abnormalities. LABORATORY DATA: CBC is within normal limits. The BUN to creatinine ratio is normal. The other electrolytes are within normal limits. IMPRESSION: 1. Acute respiratory failure. 2. Viral pneumonia and COVID-19 infection. 3. Diabetes. PLAN: 1. Continue to wean oxygen and liter flow as tolerated. 2. Place in prone position. 3. Lovenox. 4. Rescue inhaler as needed. Brayden De Dios MD [facility]/MODL /[id number]
[2020-06-05] MEDS: AZITHROMYCIN 500MG/NS 250 ML 250 ML IV SCH (23:59)
[2020-06-05] MEDS: CEFTRIAXONE SOD 1 GM/NS 50 ML 50 ML IV SCH (23:59)
[2020-06-06] VITALS (24 sets, daily range): BP systolic 68–140; BP diastolic 59–81
[2020-06-06 05:41] LABS: BASOPHILS % 0.2 % (0.0-1.0); EOSINOPHILS # (AUTO) 0.1 (0.0-0.4); EOSINOPHILS % 0.5 % (0.0-6.0); HEMATOCRIT 41.5 % (38.2-49.6); HEMOGLOBIN 14.5 g/dL (14.0-18.0); LYMPHOCYTES # (AUTO) 1.4 (1.0-3.2); LYMPHOCYTES % 11.8 % (18.0-39.1); MEAN CORPUSCULAR HEMOGLOBIN 31.7 pg (28-32); MEAN CORPUSCULAR HGB CONC 34.9 g/dL (31-35); MEAN CORPUSCULAR VOLUME 90.8 fL (81-99); MONOCYTES # (AUTO) 0.4 (0.2-0.8); MONOCYTES % 3.7 % (4.4-11.3); NEUTROPHILS # (AUTO) 9.8 (2.1-6.9); NEUTROPHILS % 82.8 % (38.7-80.0); PLATELET COUNT 223 x10e3/uL (140-360); RED BLOOD COUNT 4.57 x10e6/uL (4.3-5.7); RED CELL DISTRIBUTION WIDTH 11.9 % (11.7-14.4)
[2020-06-06 06:04] LABS: ALANINE AMINOTRANSFERASE 31 IU/L (0-55); ALBUMIN 2.2 g/dL (3.5-5.0); ALBUMIN/GLOBULIN RATIO 0.5 (0.8-2.0); ALKALINE PHOSPHATASE 73 IU/L (40-150); ANION GAP 11.7 mmol/L (8-16); BLOOD UREA NITROGEN 15 mg/dL (7-26); BUN/CREATININE RATIO 23 (6-25); CALCIUM 8.1 mg/dL (8.4-10.2); CARBON DIOXIDE 22 mmol/L (22-29); CHLORIDE 102 mmol/L (98-107); CREATININE, SERUM 0.64 mg/dL (0.72-1.25); EST GLOMERULAR FILTRATION RATE > 60 ML/MIN (60-); GLUCOSE 169 mg/dL (74-118); POTASSIUM 3.7 mmol/L (3.5-5.1); SODIUM 132 mmol/L (136-145)
[2020-06-06] MEDS: DEXAMETHASONE SOD PHOS INJ 4 MG/ML VIAL IV SCH (06:04)
[2020-06-06] MEDS: INSULIN LISPRO 100 UNIT/1 ML 3ML VIAL SQ SCH ×4 (08:30→21:16)
[2020-06-06] MEDS: ENOXAPARIN SOD INJ 40 MG/0.4 ML SYR SC SCH (08:30)
[2020-06-06] MEDS ORDERED: SODIUM CHLORIDE 0.9% 500ML 500 ML IV ONE (12:00)
--- NOTE | 2020-06-06 12:10 | NUR ---
Infectious disease progress note Patient seen and examined chart reviewed Discussed with medical team The patient does not report any new symptoms. He still has some dyspnea on exertion. He has a mild cough. new system otherwise unremarkable PHYSICAL EXAMINATION: patient needs intensive care unit Doing okay VITAL SIGNS: The blood pressure is 112/72 and saturation is 92%. His respiratory rate is in the mid 20s. He is on an Airvo at 60 L with 90%. HEENT: Shows no facial swelling or erythema. Normocephalic LYMPHATIC: Shows no submandibular or cervical adenopathy. CARDIAC: Reveals regular rate and rhythm with normal S1 and S2. LUNGS: Auscultation of lungs reveals crackles at the bases. There is no wheezing. ABDOMEN: Soft and nontender. There is no rebound or guarding. EXTREMITIES: Shows no leg edema or calf tenderness. There is no cyanosis or clubbing. SKIN: Shows no rash. NEUROLOGICAL: Shows no focal abnormalities. LABORATORY DATA: CBC is within normal limits. The BUN to creatinine ratio is normal. The other electrolytes are within normal limits. IMPRESSION: 1. Acute respiratory failure. 2. Viral pneumonia and COVID-19 infection. continue with plan of care as ordered continue with supportive care discussed with medical team this is day #4
--- NOTE | 2020-06-06 12:23 | Progress Note ---
DATE: SUBJECTIVE: The patient remains on Airvo at 60 L with 93%. He still has some dyspnea. PHYSICAL EXAMINATION: VITAL SIGNS: The blood pressure is 111/76 and the saturation is 91% on Airvo as mentioned above. HEENT: No facial swelling or erythema. LYMPHATIC: No submandibular, cervical, or supraclavicular adenopathy. CARDIAC: Regular rate and rhythm with normal S1, S2. LUNGS: Auscultation of lungs reveals rhonchorous breath sounds bilaterally. There is no wheezing. ABDOMEN: Soft, nontender. There is no rebound or guarding. EXTREMITIES: No leg edema or calf tenderness. There is no cyanosis or clubbing. SKIN: No rashes. NEUROLOGICAL: No focal abnormalities. LABORATORY DATA: The BUN to creatinine ratio is normal. The potassium is 3.7 and the other electrolytes within normal limits. Albumin is 2.2. IMPRESSION: 1. Acute respiratory failure. 2. Viral pneumonia and coronavirus disease-19 infection. 3. Diabetes. PLAN: 1. Continue to use prone position as much as possible. 2. Continue Airvo. 3. Lovenox. 4. Rescue inhaler as needed. 5. Monitor and control blood sugars. 6. Judicious use of IV fluids. 7. Dietary consultation regarding nutrition. Brayden De Dios MD [facility]/MODL /[id number]
--- NOTE | 2020-06-06 17:32 | NUR ---
Nutrition Screen Note RD Recommendation for Physician: -Appropriate diet consistency per speech therapy -Recommend ADA diet as appropriate Plan of Care: RD following, monitoring for tolerance and adequacy Nutrition reason for involvement: consult Primary Diagnose(s): acute respiratory distress, COVID-19 PMH: Diabetes. Ht: 70 in Wt: 170 lb BMI: 24.4 kg/m2 IBW:[address] Assessment: (06/06/20) Chart reviewed. Labs and meds reviewed. RD received consult for nutrition assessment. Pt is a 55 year old male admitted with acute respiratory distress and COVID-19. Pt is in the COVID ICU and RD is unable to enter room due to isolation precautions. RD called pt's nurse over the phone. RN stated pt is eating well and is consuming >50% of meals. Speech therapy evaluated pt and recommended a nectar thick liquid diet at this time and a modified barium swallow study be performed to rule out aspiration. Will continue to monitor Current Diet: cardiac diet/nectar thick liquids Malnutrition Evaluation (06/06/20) Unable to fully assess due to isolation precautions. Will re-evaluate at follow-up as appropriate. Diet Education Needs Assessment: RD is available for diet education as needed Nutrition Care Level: low Signed: Venessa Green, RD, LD
--- NOTE | 2020-06-06 20:47 | NUR ---
patient resent in resp distresst sats sustained at 80%, rapid labored breathing, rigourous coughing, with nonrebreather on top of HF at 60L, temp of 100.6 axillary. Mildly confused and lethargic, Sats dropped into 40's. STAT ABG done and patient proned immediately. Placed in reverse trendelenburg, given tylenol for fever and ambien to help rest. Sts currently at 97% in prone position. Dr. De Dios made aware of ABG results .
[2020-06-06] MEDS: AZITHROMYCIN 500MG/NS 250 ML 250 ML IV SCH (21:14)
[2020-06-06 22:56] LABS: ABG HCO3 22 mmol/L (22-26); ABG PCO2 28 mmHg (35-45); ABG PH 7.51 (7.35-7.45); ABG PO2 47 mmHg (80-105); ABG TCO2 23
[2020-06-06] MEDS: CEFTRIAXONE SOD 1 GM/NS 50 ML 50 ML IV SCH (23:24)
[2020-06-07] VITALS (25 sets, daily range): BP systolic 92–121; BP diastolic 54–81
--- NOTE | 2020-06-07 02:46 | Progress Note ---
DATE: 06/06/2020 DATE: 06/06/2020 SUBJECTIVE: Events of June 06, 2020noted. Pulmonology noted. Patient still complains of shortness of breath. OBJECTIVE: VITAL SIGNS: Stable. Blood pressure 109/67, respirations 20, pulse 81, and temperature 100.4. The patient is being followed by Pulmonary, Dr. De Dios and events noted. Presently on AIRVO at 60 L with 93% O2 saturation. The patient's admission revealed the patient is alert and oriented to person, time, and place. The patient in no significant distress. HEENT: Head is normocephalic and atraumatic. No facial swelling. NECK: Supple. No JVD. LUNGS: Clear HEART: Regular rate and rhythm. ABDOMEN: Soft and nontender. EXTREMITIES: No edema. NEURO: Nonfocal. LABORATORY DATA: Chem profile reveals sodium 132, potassium 3.6, chloride 102, CO2 of 22, BUN 15, and creatinine 0.64. Chest x-ray as of 06/05/2020 stable air space opacities consistent with multifocal pneumonia including viral pneumonia ASSESSMENT: 1. Acute respiratory failure. 2. Viral pneumonia, secondary to COVID-19. 3. Diabetes mellitus. PLAN OF CARE: Continue present care. The patient has been placed on prone position. Continue AIRVO. On Lovenox. Continue rescue inhalers. Monitor vital signs. Continue MD PENNY Kraus/AL /[id number] MTDD
[2020-06-07] MEDS: INSULIN LISPRO 100 UNIT/1 ML 3ML VIAL SQ SCH ×4 (08:29→21:00)
[2020-06-07] MEDS: ENOXAPARIN SOD INJ 40 MG/0.4 ML SYR SC SCH (08:29)
[2020-06-07] MEDS: DEXAMETHASONE SOD PHOS INJ 4 MG/ML VIAL IV SCH (08:30)
[2020-06-07] MEDS ORDERED: LACTATED RINGER'S 500 ML INJ ONE (10:30)
--- NOTE | 2020-06-07 10:58 | Progress Note ---
DATE: SUBJECTIVE: The patient is still requiring Airvo at 60 L. FiO2 is set in the low-to-mid 90s. His saturation is 93%. PHYSICAL EXAMINATION: VITAL SIGNS: Blood pressure is 95/64 and heart rate is 86. T-max is 99.7. HEENT: Shows no facial swelling or erythema. The oropharynx is normal. LYMPHATIC: Shows no submandibular, cervical or supraclavicular adenopathy. CARDIAC: Reveals regular rate and rhythm with normal S1 and S2. LUNGS: Auscultation of lungs reveals clear breath sounds bilaterally. There is no wheezing. ABDOMEN: Soft and nontender. There is no rebound or guarding. EXTREMITIES: Shows no leg edema or calf tenderness. There is no cyanosis or clubbing. SKIN: Shows no rashes. NEUROLOGICAL: Shows no focal abnormalities. LABORATORY DATA: White blood cell count is 11.8 and hemoglobin 14.5. The platelet count is 223. The BUN to creatinine ratio is normal. The other electrolytes are within normal limits. Blood sugar is 150 to 263. Albumin is 2.2. IMPRESSION: 1. Acute respiratory failure. 2. Viral pneumonia and COVID-19 infection. 3. Diabetes. PLAN: 1. Use prone position as much as possible. 2. Continue Airvo. 3. Lovenox. 4. Continue rescue inhaler as needed. 5. Monitor and control blood sugars. 6. Continue feedings as needed. 7. Await full evaluation from speech therapy. Brayden De Dios MD [facility] /[id number]
--- NOTE | 2020-06-07 11:02 | NUR ---
DATE: 06/07/2020 SUBJECTIVE: Events of June 07, 2020noted. The patient is complaining of shortness of breath. No chest pain, no nausea, no vomiting, no diarrhea. OBJECTIVE: VITAL SIGNS: Stable. Blood pressure 109/67, respirations 20, pulse 81, and temperature 100.4. The patient is being followed by Pulmonary, Dr. De Dios and events noted. Presently on AIRVO at 60 L with 93% O2 saturation. The patient's admission revealed the patient is alert and oriented to person, time, and place. The patient in no significant distress. HEENT: Head is normocephalic and atraumatic. No facial swelling. NECK: Supple. No JVD. LUNGS: Clear HEART: Regular rate and rhythm. ABDOMEN: Soft and nontender. EXTREMITIES: No edema. NEURO: Nonfocal. LABORATORY DATA: Chem profile reveals sodium 132, potassium 3.6, chloride 102, CO2 of 22, BUN 15, and creatinine 0.64. Chest x-ray as of 06/05/2020 stable air space opacities consistent with multifocal pneumonia including viral pneumonia ASSESSMENT: 1. Acute respiratory failure. 2. Viral pneumonia, secondary to COVID-19. 3. Diabetes mellitus. PLAN OF CARE: Continue present care. The patient has been placed on prone position. Continue AIRVO. On Lovenox. Continue rescue inhalers. Monitor vital signs. Continue feeding as needed. Rescue inhaler.
--- NOTE | 2020-06-07 12:56 | NUR ---
there is infectious disease progress note patient seen and examined chart reviewed. June 07, 2020. Discussed with medical team. The patient is still requiring Airvo at 60 L. FiO2 is set in the low-to-mid 90s. His saturation is 93%. PHYSICAL EXAMINATION: VITAL SIGNS: Blood pressure is 95/64 and heart rate is 86. T-max is 99.7. HEENT: Shows no facial swelling or erythema. The oropharynx is normal. LYMPHATIC: Shows no submandibular, cervical or supraclavicular adenopathy. CARDIAC: Reveals regular rate and rhythm with normal S1 and S2. LUNGS: Auscultation of lungs reveals clear breath sounds bilaterally. There is no wheezing. ABDOMEN: Soft and nontender. There is no rebound or guarding. EXTREMITIES: Shows no leg edema or calf tenderness. There is no cyanosis or clubbing. SKIN: Shows no rashes. NEUROLOGICAL: Shows no focal abnormalities. LABORATORY DATA: White blood cell count is 11.8 and hemoglobin 14.5. The platelet count is 223. The BUN to creatinine ratio is normal. The other electrolytes are within normal limits. Blood sugar is 150 to 263. Albumin is 2.2. IMPRESSION: 1. Acute respiratory failure. 2. Viral pneumonia and COVID-19 infection. 3. Diabetes. to finish the course of dexamethasone for 10 days Rocephin azithromycin as planned
[2020-06-07] MEDS: AZITHROMYCIN 500MG/NS 250 ML 250 ML IV SCH (21:10)
[2020-06-08] VITALS (24 sets, daily range): BP systolic 75–131; BP diastolic 51–77
[2020-06-08 05:00] LABS: BASOPHILS % 0.1 % (0.0-1.0); EOSINOPHILS % 0.1 % (0.0-6.0); HEMATOCRIT 39.7 % (38.2-49.6); HEMOGLOBIN 14.4 g/dL (14.0-18.0); LYMPHOCYTES # (AUTO) 1.1 (1.0-3.2); LYMPHOCYTES % 5.9 % (18.0-39.1); MEAN CORPUSCULAR HEMOGLOBIN 33.6 pg (28-32); MEAN CORPUSCULAR HGB CONC 36.3 g/dL (31-35); MEAN CORPUSCULAR VOLUME 92.5 fL (81-99); MONOCYTES # (AUTO) 0.6 (0.2-0.8); MONOCYTES % 3.3 % (4.4-11.3); NEUTROPHILS # (AUTO) 16.1 (2.1-6.9); NEUTROPHILS % 89.9 % (38.7-80.0); PLATELET COUNT 175 x10e3/uL (140-360); RED BLOOD COUNT 4.29 x10e6/uL (4.3-5.7)
[2020-06-08] MEDS: CEFTRIAXONE SOD 1 GM/NS 50 ML 50 ML IV SCH (05:43)
[2020-06-08 06:02] LABS: ALANINE AMINOTRANSFERASE 30 IU/L (0-55); ALBUMIN 1.9 g/dL (3.5-5.0); ALBUMIN/GLOBULIN RATIO 0.4 (0.8-2.0); ALKALINE PHOSPHATASE 73 IU/L (40-150); ANION GAP 13.9 mmol/L (8-16); BLOOD UREA NITROGEN 13 mg/dL (7-26); BUN/CREATININE RATIO 21 (6-25); CALCIUM 8.3 mg/dL (8.4-10.2); CARBON DIOXIDE 20 mmol/L (22-29); CHLORIDE 101 mmol/L (98-107); CREATININE, SERUM 0.62 mg/dL (0.72-1.25); EST GLOMERULAR FILTRATION RATE > 60 ML/MIN (60-); GLUCOSE 184 mg/dL (74-118); POTASSIUM 3.9 mmol/L (3.5-5.1); SODIUM 131 mmol/L (136-145)
[2020-06-08] MEDS: DEXAMETHASONE SOD PHOS INJ 4 MG/ML VIAL IV SCH (06:34)
--- NOTE | 2020-06-08 09:39 | Diagnostic Imaging Report ---
EXAMINATION: CHEST SINGLE (PORTABLE) INDICATION: Viral pneumonia COMPARISON: Chest radiograph of 06/02/2020 FINDINGS: The initially uploaded image is left/right flipped and marked incorrectly. A corrected image was subsequently uploaded. LINES/TUBES:EKG leads overlie the chest. LUNGS:The lungs are moderately inflated. Increasing multifocal bilateral airspace opacities, most notably on the right. PLEURA:No pleural effusion or pneumothorax. MEDIASTINUM:The cardiomediastinal silhouette appears unchanged in size and shape. BONES/SOFT TISSUES:No acute osseous injury. ABDOMEN:No free air under the diaphragm. Residual oral contrast material in the colon. IMPRESSION: Increasing bilateral multifocal airspace opacities. Signed by: Evi Davis MD on 06/08/2020 9:35 AM
[2020-06-08] MEDS: INSULIN LISPRO 100 UNIT/1 ML 3ML VIAL SQ SCH ×3 (10:04→16:30)
--- NOTE | 2020-06-08 10:06 | NUR ---
DATE: 06/08/2020 Events of June 08, 2020noted. The patient is complaining of shortness of breath. No chest pain, no nausea, no vomiting, no diarrhea. OBJECTIVE: Vital signs: Blood pressure 88/60, respiration 26, pulse 91, afebrile The patient is being followed by Pulmonary, Dr. De Dios and events noted. Presently on AIRVO at 60 L with 93% O2 saturation. The patient's admission revealed the patient is alert and oriented to person, time, and place. The patient in no significant distress. LABORATORY DATA: CBC disclosed, WBC 17.93, hemoglobin 14.4, platelet count 175,000 Chest x-rays: Did reveal increased bilateral multifocal airspace opacities Please medication: Dexamethasone 6 mg IV daily Ceftriaxone 1 g IV every 24 hours Azithromycin 500 mg IV every 24 hours Lovenox 40 g subcutaneously daily Ambien 5 PM p.o. as needed Humulin lispro Tussionex ASSESSMENT: 1. Acute respiratory failure. 2. Viral pneumonia, secondary to COVID-19. 3. Diabetes mellitus. PLAN OF CARE: Pulmonary evaluation noted. Chest x-ray findings worrisome. Continue present care as advised. Pulmonary evaluation noted. On Lovenox. Continue rescue inhalers. Monitor vital signs. Continue feeding as needed. Rescue inhaler.
[2020-06-08] MEDS: ENOXAPARIN SOD INJ 40 MG/0.4 ML SYR SC SCH (10:07)
--- NOTE | 2020-06-08 10:39 | Progress Note ---
DATE: SUBJECTIVE: The patient is now AIRVO. He is on 60 L and 93%. He was in the prone position during the night, but is now supine. OBJECTIVE: VITAL SIGNS: The patient is afebrile. The blood pressure is 90/60 and pulse is 91. Saturation is 91%. He is on AIRVO at 60 L. HEENT: Shows no facial swelling or erythema. LYMPHATIC: Examination shows no submandibular, cervical, or supraclavicular adenopathy. CARDIAC: Reveals a regular rate and rhythm with normal S1 and S2. LUNGS: Auscultation of lungs reveals rhonchus breath sounds bilaterally. There is no wheezing. ABDOMEN: Soft, nontender. There is no rebound or guarding. EXTREMITIES: Shows no leg edema or calf tenderness. There is no cyanosis or clubbing. SKIN: Shows no rashes. NEUROLOGICAL: Shows no focal abnormalities. LABORATORY DATA: White blood cell count is 17.9, hemoglobin is 14.4. The platelet count is 175. The BUN to creatinine ratio is 13 to 0.62 and the carbon dioxide is 20. Albumin is 1.9. ASSESSMENT: 1. Acute respiratory failure. 2. Viral pneumonia and coronavirus disease-19 infection. 3. Diabetes. 4. Oropharyngeal dysphagia. PLAN: 1. Modified barium swallow schedule for today. 2. Continue AIRVO. 3. Use prone position as much as possible. 4. Lovenox. 5. Monitor and control blood sugars. Brayden De Dios MD [facility]/[place] /[id number]
--- NOTE | 2020-06-08 15:08 | NUR ---
e patient is afebrile. The blood pressure is 90/60 and pulse is 91. Saturation is 91%. He is on AIRVO at 60 L. HEENT: Shows no facial swelling or erythema. LYMPHATIC: Examination shows no submandibular, cervical, or supraclavicular adenopathy. CARDIAC: Reveals a regular rate and rhythm with normal S1 and S2. LUNGS: Auscultation of lungs reveals rhonchus breath sounds bilaterally. There is no wheezing. ABDOMEN: Soft, nontender. There is no rebound or guarding. EXTREMITIES: Shows no leg edema or calf tenderness. There is no cyanosis or clubbing. SKIN: Shows no rashes. NEUROLOGICAL: Shows no focal abnormalities. LABORATORY DATA: White blood cell count is 17.9, hemoglobin is 14.4. The platelet count is 175. The BUN to creatinine ratio is 13 to 0.62 and the carbon dioxide is 20. Albumin is 1.9. ASSESSMENT: 1. Acute respiratory failure. 2. Viral pneumonia and coronavirus disease-19 infection.
--- NOTE | 2020-06-08 16:19 | Progress Note ---
DATE: SUBJECTIVE: Mr. Hurtado remains in intensive care unit on the Ventimask. The patient is on 60 L with 90%, prone position. PHYSICAL EXAMINATION: VITAL SIGNS: Stable, afebrile. HEENT: He is not icteric. NECK: Supple. CHEST: Crackles. HEART: S1 and S2. ABDOMEN: Soft. IMPRESSION: Respiratory failure, COVID-19, and diabetes mellitus. Continue with supportive care as ordered. We will follow. MD MARA Sarmiento/MODL /[id number]
[2020-06-08] MEDS ORDERED: BENZOCAINE 20% SPR 60 ML CAN MT ONE (17:30)
[2020-06-08] MEDS ORDERED: DEXMEDETOMIDINE 200MCG/NS 50ML 50 ML IV PRN (17:30)
[2020-06-08] MEDS ORDERED: MIDAZOLAM HCL 5MG/ML 10ML VIAL 100 ML IV ONE (21:08)
[2020-06-08] MEDS ORDERED: FENTANYL 2000MCG/NS 250 250 ML ONE (21:08)
--- NOTE | 2020-06-08 22:17 | Diagnostic Imaging Report ---
EXAM: Abdomen 1 Views INDICATION: ^ngt placement ^[id number] ^2119 ^Y COMPARISON: None IMPRESSION: Nasogastric tube in place with tip projecting over gastric fundus. Oral contrast within large bowel. Bilateral lung airspace opacities. Signed by: Dr. Bigg Bowen MD on 06/08/2020 10:14 PM
--- NOTE | 2020-06-08 22:17 | Diagnostic Imaging Report ---
ADDENDUM #1 The tip of endotracheal tube is approximately 4.1 cm above tee. Signed by: Dr. Bigg Bowen MD on 06/09/2020 5:12 AM ORIGINAL REPORT EXAMINATION: CHEST SINGLE (PORTABLE) INDICATION: ^intubation ^[id number] ^2119 ^Y COMPARISON: Earlier same day FINDINGS: AP view TUBES and LINES: Interval intubation with tip of endotracheal tube in mid trachea. Interval placement of enteric tube with tip projecting over gastric fundus. LUNGS: Low lung volumes diffuse bilateral airspace opacities, right greater than left. PLEURA: No significant pleural effusion or pneumothorax. HEART AND MEDIASTINUM: The cardiomediastinal silhouette is unremarkable. BONES AND SOFT TISSUES: No acute osseous lesion. Soft tissues are unremarkable. UPPER ABDOMEN: No free air under the diaphragm. Oral contrast is seen within bowel. IMPRESSION: Interval intubation and enteric tube placement. No pneumothorax. Not significantly changed diffuse bilateral airspace opacities, representing edema and/or pneumonia. Signed by: Dr. Bigg Bowen MD on 06/08/2020 10:13 PM
--- NOTE | 2020-06-08 22:52 | Operative Report ---
DATE OF PROCEDURE: SURGEON: Brayden De Dios MD PROCEDURE: Endotracheal intubation with GlideScope. PREOPERATIVE DIAGNOSIS: Respiratory failure. POSTOPERATIVE DIAGNOSIS: Respiratory failure. CONSENT: Consent was obtained from the patient and family. MEDICATIONS: 1. Versed 1 mg. 2. Etomidate 20 mg. 3. Succinylcholine 100 mg. DESCRIPTION OF PROCEDURE: The patient was placed in the supine position. He was on placed on AIRVO with 60 L and maximum oxygen along with a non-rebreather. He was desaturating to the 70s to 80s. The patient was switched to an Ambu bag. He was briefly ventilated with an Ambu bag. The 3-0 GlideScope was used to visualize the glottis. An 8.0 endotracheal tube was passed through the cords on the first attempt. There was good CO2 return. There were equal breath sounds bilaterally. The patient was subsequently connected to the ventilator. COMPLICATIONS: None. ESTIMATED BLOOD LOSS: None. Brayden De Dios MD [facility]/[place] /[id number]
[2020-06-08 23:15] LABS: ABG HCO3 18 mmol/L (22-26); ABG PCO2 34 mmHg (35-45); ABG PH 7.31 (7.35-7.45); ABG PO2 50 mmHg (80-105); ABG TCO2 19
[2020-06-09] VITALS (20 sets, daily range): BP systolic 75–118; BP diastolic 52–80
[2020-06-09] MEDS: CEFTRIAXONE SOD 1 GM/NS 50 ML 50 ML IV SCH
[2020-06-09] MEDS: AZITHROMYCIN 500MG/NS 250 ML 250 ML IV SCH
[2020-06-09] MEDS: FENTANYL CITRATE INJ 2,000 MCG in SODIUM CHLORIDE 0.9% 250ML 210 ML IV PRN ×2 (00:05→12:54)
[2020-06-09] MEDS: INSULIN LISPRO 100 UNIT/1 ML 3ML VIAL SQ SCH ×4 (00:06→18:36)
[2020-06-09] MEDS: SODIUM CHLORIDE 0.9% 250ML IRRIG IR SCH ×7 (00:36→23:21)
--- NOTE | 2020-06-09 03:54 | Diagnostic Imaging Report ---
ADDENDUM #1 The tip of endotracheal tube is approximately 7.4 cm above tee. Signed by: Dr. Bigg Bowen MD on 06/09/2020 5:13 AM ORIGINAL REPORT EXAMINATION: CHEST XRAY LINE PLACEMENT INDICATION: ^HANNAH PICC CONFIRMATION ^Y COMPARISON: 06/05/2020 FINDINGS: AP view TUBES and LINES: Endotracheal tube in place with tip at the level of the clavicles. Right PICC with tip projecting over superior SVC. Enteric tube with tip extending beyond the inferior margin of the film. LUNGS: Lungs are well inflated. Diffuse bilateral airspace opacities PLEURA: No significant pleural effusion or pneumothorax. HEART AND MEDIASTINUM: The cardiomediastinal silhouette is unremarkable. BONES AND SOFT TISSUES: No acute osseous lesion. Soft tissues are unremarkable. UPPER ABDOMEN: No free air under the diaphragm. IMPRESSION: Right PICC with tip projecting over superior SVC. No visible pneumothorax. Redemonstration of diffuse bilateral airspace opacities. Signed by: Dr. Bigg Bowen MD on 06/09/2020 3:51 AM
--- NOTE | 2020-06-09 03:56 | Diagnostic Imaging Report ---
ADDENDUM #1 The endotracheal tube tip is approximately 6.8 cm above tee. Signed by: Dr. Bigg Bowen MD on 06/09/2020 5:11 AM ORIGINAL REPORT EXAMINATION: CHEST XRAY LINE PLACEMENT INDICATION: ^HANNAH PICC CONFIRMATION ^Y COMPARISON: 06/08/2020 FINDINGS: AP view TUBES and LINES: Endotracheal tube in place with tip at the level of the clavicles. Right PICC with tip projecting over superior SVC. Enteric tube with tip extending beyond the inferior margin of the film. LUNGS: Lungs are well inflated. Diffuse bilateral airspace opacities PLEURA: No significant pleural effusion or pneumothorax. HEART AND MEDIASTINUM: The cardiomediastinal silhouette is unremarkable. BONES AND SOFT TISSUES: No acute osseous lesion. Soft tissues are unremarkable. UPPER ABDOMEN: No free air under the diaphragm. IMPRESSION: Right PICC with tip projecting over superior SVC. No visible pneumothorax. Redemonstration of diffuse bilateral airspace opacities. Signed by: Dr. Bigg Bowen MD on 06/09/2020 3:52 AM
[2020-06-09 04:17] LABS: BASOPHILS % 0.1 % (0.0-1.0); HEMATOCRIT 38.8 % (38.2-49.6); HEMOGLOBIN 13.2 g/dL (14.0-18.0); LYMPHOCYTES # (AUTO) 0.6 (1.0-3.2); MEAN CORPUSCULAR HEMOGLOBIN 32.1 pg (28-32); MEAN CORPUSCULAR VOLUME 94.4 fL (81-99); MONOCYTES # (AUTO) 0.7 (0.2-0.8); MONOCYTES % 3.2 % (4.4-11.3); NEUTROPHILS # (AUTO) 18.4 (2.1-6.9); NEUTROPHILS % 90.4 % (38.7-80.0); PLATELET COUNT 170 x10e3/uL (140-360); RED BLOOD COUNT 4.11 x10e6/uL (4.3-5.7); RED CELL DISTRIBUTION WIDTH 11.9 % (11.7-14.4)
--- NOTE | 2020-06-09 04:39 | NUR ---
Patient present at shift change in resp distress, sats in 60's sustained, unable to reach therapeutic oxygen levels on airvo and nonrebreather. Respiratory and MD notified of critical sats. Patient intubated with 8.0 ET tube, placement verified by xray, and daughter updated. NG placed to the right nare, placement verified by auscultation and KUB. PICC placement requested, verbally consented over phone, form signed and witnessed by 2 nurses, PICC placed to the right upper arm and placement verified by xray. Permission given to use. Patient sedated at this time, no respiratory distress noted at this time, time con't to monitor.
[2020-06-09 04:45] LABS: ALANINE AMINOTRANSFERASE 22 IU/L (0-55); ALBUMIN 1.7 g/dL (3.5-5.0); ALBUMIN/GLOBULIN RATIO 0.4 (0.8-2.0); ALKALINE PHOSPHATASE 70 IU/L (40-150); ANION GAP 12.6 mmol/L (8-16); BLOOD UREA NITROGEN 22 mg/dL (7-26); BUN/CREATININE RATIO 24 (6-25); CALCIUM 8.1 mg/dL (8.4-10.2); CARBON DIOXIDE 24 mmol/L (22-29); CHLORIDE 102 mmol/L (98-107); CREATININE, SERUM 0.91 mg/dL (0.72-1.25); EST GLOMERULAR FILTRATION RATE > 60 ML/MIN (60-); GLUCOSE 293 mg/dL (74-118); POTASSIUM 4.6 mmol/L (3.5-5.1); SODIUM 134 mmol/L (136-145)
[2020-06-09 04:47] LABS: ABG PCO2 66 mmHg (35-45)
[2020-06-09 04:48] LABS: ABG HCO3 27 mmol/L (22-26); ABG PO2 88 mmHg (80-105); ABG TCO2 28
--- NOTE | 2020-06-09 05:06 | NUR ---
Spoke to radiologist Dr. Bigg Bowen regarding ET tube placement confirmation. He stated it is 5 cm above tee.
--- NOTE | 2020-06-09 05:30 | NUR ---
patient placed in prone position at this time, no distress, to monitor.
[2020-06-09] MEDS ORDERED: NOREPINEPHRINE INJ 4MG/4ML 8 MG in DEXTROSE 5% 250ML 250 ML IV PRN (06:15)
[2020-06-09] MEDS: DEXAMETHASONE SOD PHOS INJ 4 MG/ML VIAL IV SCH (06:37)
[2020-06-09] MEDS: CHOLECALCIFEROL 1,000 UNIT TAB PO SCH (08:04)
[2020-06-09] MEDS: ZINC SULFATE 220 MG CAP PO SCH (08:04)
[2020-06-09] MEDS: ASCORBIC ACID 500 MG TAB PO SCH ×2 (08:04→18:06)
[2020-06-09] MEDS: ENOXAPARIN SOD INJ 40 MG/0.4 ML SYR SC SCH (08:04)
[2020-06-09] MEDS ORDERED: SODIUM CHLORIDE 0.9% 500ML 500 ML IV ONE (08:30)
[2020-06-09] MEDS: MIDAZOLAM HCL 5MG/ML 10ML VIAL 100 ML IV PRN ×3 (08:48→18:23)
[2020-06-09] MEDS ORDERED: ASCORBIC ACID 500 MG TAB PO SCH (09:00)
--- NOTE | 2020-06-09 09:34 | Progress Note ---
DATE: SUBJECTIVE: The patient is now on mechanical ventilation. He required endotracheal intubation last night. He has some hypotension. He received 500 mL of fluid and is on low-dose Levophed. He has a PICC line in place. PHYSICAL EXAMINATION: VITAL SIGNS: The blood pressure now is 56/52, saturation is 100%. He is on a PRVC mode of ventilation at a rate of 26 with a tidal volume of 380 and FiO2 of 100%. His PEEP is set at 10. HEENT: Shows no facial swelling or erythema. There is an oral endotracheal tube. The site looks clean. CARDIAC: Reveals a regular rate and rhythm with normal S1 and S2. LUNGS: Auscultation of lungs reveals rhonchorous breath sounds bilaterally. There is no wheezing. ABDOMEN: Soft and nontender. There is no rebound or guarding. EXTREMITIES: Shows no leg edema or calf tenderness. There is no cyanosis or clubbing. SKIN: Shows no rashes. LABORATORY DATA: White blood cell count is 20.3 and the hemoglobin is 13.2. The platelet count is 170. The BUN to creatinine ratio is 22 to 0.1, and the sodium is 134. The albumin is 1.7. Blood gases; 7.2, 66, 88, and 27. IMPRESSION: 1. Viral pneumonia and COVID-19 infection. 2. Superimposed bacterial pneumonia. 3. Hypotension. 4. Acute respiratory failure. 5. Diabetes. PLAN: 1. Give additional fluid challenge and wean Levophed. 2. Continue current ventilator settings and repeat ABG. 3. Continue to use the prone position. 4. Complete current antibiotics. 5. Continue Lovenox. 6. Continue to monitor and control blood sugars. 7. Case discussed with nursing, Respiratory, Infectious Disease, and family. Greater than 35 minutes in direct critical care time. Brayden De Dios MD LM/AL /[id number]
[2020-06-09] MEDS ORDERED: HEPARIN SOD/SOD CHLORIDE 1,000 ML IV SCH (09:45)
--- NOTE | 2020-06-09 09:48 | NUR ---
Events noted 06/09/20 Date of service: 06/09/2020 The patient is critically ill. The patient was in the ventilator with acute respiratory failure. The patient condition has been discussed with critical care Dr. De Dios. The patient became hypotensive and had to be given 500 mL fluid. He has been placed on low-dose Levophed. Hemodynamically unstable earlier with systolic in the mid 70s/diastolic in the mid 50s. Pulse 101. Temperature 100.2. The patient acutely deteriorated.. The patient was laying down. The patient was on the vent. CBC revealed: Hemoglobin 13.2, WBC 20.36, platelet count 170,000 Sodium 134, potassium 4.6, chloride 102, CO2 24, BUN 22, creatinine 0.91 ASSESSMENT: 1. Acute respiratory failure. 2. Viral pneumonia, secondary to COVID-19. 3. Diabetes mellitus. PLAN OF CARE: The patient is critically ill. The patient seems to have developed secondary pneumonia. Glycemic control. Broad-spectrum biotics.
[2020-06-09] MEDS ORDERED: VANCOMYCIN 1GM/NS 250 ML 250 ML IV ONE (11:30)
--- NOTE | 2020-06-09 12:35 | NUR ---
disinfection disease progress note. Patient seen and examined chart reviewed discussed the medical team. June 09, 2023 Patient admitted to intensive care unit. patient is on vent now The patient is now on mechanical ventilation. He required endotracheal intubation last night. He has some hypotension. He received 500 mL of fluid and is on low-dose Levophed. He has a PICC line in place. PHYSICAL EXAMINATION: VITAL SIGNS: The blood pressure now is 56/52, saturation is 100%. He is on a PRVC mode of ventilation at a rate of 26 with a tidal volume of 380 and FiO2 of 100%. His PEEP is set at 10. HEENT: Shows no facial swelling or erythema. There is an oral endotracheal tube. The site looks clean. CARDIAC: Reveals a regular rate and rhythm with normal S1 and S2. LUNGS: Auscultation of lungs reveals rhonchorous breath sounds bilaterally. There is no wheezing. ABDOMEN: Soft and nontender. There is no rebound or guarding. EXTREMITIES: Shows no leg edema or calf tenderness. There is no cyanosis or clubbing. SKIN: Shows no rashes. LABORATORY DATA: White blood cell count is 20.3 and the hemoglobin is 13.2. The platelet count is 170. The BUN to creatinine ratio is 22 to 0.1, and the sodium is 134. The albumin is 1.7. Blood gases; 7.2, 66, 88, and 27. IMPRESSION: 1. Viral pneumonia and COVID-19 infection. 2. Superimposed bacterial pneumonia. 3. Hypotension. 4. Acute respiratory failure. 5. Diabetes. worse today patient has been sick for more than 2 weeks before he came o ER at this time covid is no longer active in his system he is at risk of aspersion and other ARDS comolicatin will get sputum cultures and start meropenem and vanc
[2020-06-09 13:10] LABS: ABG HCO3 28 mmol/L (22-26); ABG PCO2 73 mmHg (35-45); ABG PH 7.19 (7.35-7.45); ABG PO2 104 mmHg (80-105); ABG TCO2 30
--- NOTE | 2020-06-09 15:19 | Diagnostic Imaging Report ---
EXAMINATION: CHEST SINGLE (PORTABLE) INDICATION: Respiratory failure, intubation COMPARISON: Chest radiograph 06/09/2020 FINDINGS: LINES/TUBES:Endotracheal tube terminates approximately 6 cm above the tee. Enteric tube projects below the diaphragm and out of view. Right PICC line terminates near the superior cavoatrial junction. LUNGS:Unchanged bilateral multifocal airspace opacities. PLEURA:No pleural effusion or pneumothorax. MEDIASTINUM:The cardiomediastinal silhouette appears unchanged in size and shape. BONES/SOFT TISSUES:No acute osseous injury. ABDOMEN:No free air under the diaphragm. IMPRESSION: Endotracheal tube terminates approximately 6 cm above the tee. Other support lines and tubes unchanged. Unchanged bilateral multifocal airspace opacities. Signed by: Evi Davis MD on 06/09/2020 3:16 PM
--- NOTE | 2020-06-09 15:35 | Operative Report ---
DATE OF PROCEDURE: SURGEON: Brayden De Dios MD PROCEDURE: Arterial line placement under ultrasound guidance. PREOPERATIVE DIAGNOSIS: Respiratory failure. POSTOPERATIVE DIAGNOSIS: Respiratory failure. CONSENT: Consent was obtained from the family. MEDICATIONS: The patient was on Versed and fentanyl at the time of the procedure. DESCRIPTION OF PROCEDURE: The patient's wrist was examined with the ultrasound. There was a patent radial artery on the right side. The patient also had patent ulnar artery. Good collateral circulation. The patient was prepped sterilely with chlorhexidine. A sterile drape was used along with sterile gloves and mask. A 20-gauge needle was used to cannulate the radial artery under direct visualization with ultrasound. A wire was passed through the needle and a 20-gauge catheter was placed over the wire by the Seldinger technique. There was good blood return and a normal arterial waveform. COMPLICATIONS: None. ESTIMATED BLOOD LOSS: 5 mL. Brayden De Dios MD [facility]/MODL /[id number]
[2020-06-09] MEDS: MEROPENEM 1GM 100 ML IV SCH ×2 (16:10→22:48)
--- NOTE | 2020-06-09 18:05 | NUR ---
assumed nursing care of patient at 1700 today from hollie jamil rn
[2020-06-09 18:08] LABS: ABG HCO3 29 mmol/L (22-26); ABG PCO2 53 mmHg (35-45); ABG PH 7.34 (7.35-7.45); ABG PO2 77 mmHg (80-105); ABG TCO2 30
[2020-06-09] MEDS: ROCURONIUM BROMIDE 1,250 MG in SODIUM CHLORIDE 0.9% 250ML 125 ML IV SCH ×3 (19:53)
[2020-06-10] VITALS (24 sets, daily range): BP systolic 90–132; BP diastolic 51–69
[2020-06-10] MEDS: SODIUM CHLORIDE 0.9% 250ML IRRIG IR SCH ×6 (03:03→23:30)
[2020-06-10 03:43] LABS: BASOPHILS % 0.1 % (0.0-1.0); HEMATOCRIT 37.1 % (38.2-49.6); HEMOGLOBIN 12.5 g/dL (14.0-18.0); LYMPHOCYTES # (AUTO) 1.3 (1.0-3.2); LYMPHOCYTES % 7.3 % (18.0-39.1); MEAN CORPUSCULAR HEMOGLOBIN 32.4 pg (28-32); MEAN CORPUSCULAR HGB CONC 33.7 g/dL (31-35); MEAN CORPUSCULAR VOLUME 96.1 fL (81-99); MONOCYTES # (AUTO) 0.8 (0.2-0.8); MONOCYTES % 4.3 % (4.4-11.3); NEUTROPHILS # (AUTO) 15.4 (2.1-6.9); NEUTROPHILS % 87.5 % (38.7-80.0); PLATELET COUNT 203 x10e3/uL (140-360); RED BLOOD COUNT 3.86 x10e6/uL (4.3-5.7); RED CELL DISTRIBUTION WIDTH 11.9 % (11.7-14.4)
[2020-06-10 04:01] LABS: ALANINE AMINOTRANSFERASE 20 IU/L (0-55); ALBUMIN 1.4 g/dL (3.5-5.0); ALBUMIN/GLOBULIN RATIO 0.3 (0.8-2.0); ALKALINE PHOSPHATASE 68 IU/L (40-150); ANION GAP 10.4 mmol/L (8-16); BLOOD UREA NITROGEN 15 mg/dL (7-26); BUN/CREATININE RATIO 22 (6-25); CALCIUM 7.7 mg/dL (8.4-10.2); CARBON DIOXIDE 27 mmol/L (22-29); CHLORIDE 100 mmol/L (98-107); CREATININE, SERUM 0.67 mg/dL (0.72-1.25); EST GLOMERULAR FILTRATION RATE > 60 ML/MIN (60-); GLUCOSE 295 mg/dL (74-118); POTASSIUM 4.4 mmol/L (3.5-5.1); SODIUM 133 mmol/L (136-145)
[2020-06-10] MEDS: INSULIN LISPRO 100 UNIT/1 ML 3ML VIAL SQ SCH ×3 (05:32→17:16)
[2020-06-10] MEDS: MEROPENEM 1GM 100 ML IV SCH ×3 (05:33→20:53)
[2020-06-10] MEDS: DEXAMETHASONE SOD PHOS INJ 4 MG/ML VIAL IV SCH (05:33)
--- NOTE | 2020-06-10 08:28 | Diagnostic Imaging Report ---
EXAM: CHEST SINGLE (PORTABLE) DATE: 06/10/2020 4:41 AM INDICATION: Respiratory failure COMPARISON: 06/09/2020 FINDINGS: Endotracheal tube and right-sided PICC line identified in stable position. Enteric tube noted coursing below the diaphragm. The trachea is midline. Again identified are patchy airspace opacities throughout the lungs bilaterally with a lower lung zone predominance. Findings are grossly stable from the prior examination. There is no evidence for pneumothorax or significant volume pleural effusion. The cardiomediastinal silhouette is stable in appearance. No acute osseous abnormality is identified. IMPRESSION: No significant interval change from 06/09/2020. Grossly stable appearing airspace opacities identified throughout the lungs bilaterally. Signed by: Dr. Sergei Hudson MD on 06/10/2020 8:25 AM
[2020-06-10] MEDS: ZINC SULFATE 220 MG CAP PO SCH (08:59)
[2020-06-10] MEDS: CHOLECALCIFEROL 1,000 UNIT TAB PO SCH (08:59)
[2020-06-10] MEDS: ASCORBIC ACID 500 MG TAB PO SCH ×2 (08:59→17:16)
[2020-06-10] MEDS ORDERED: FUROSEMIDE INJ 10 MG/ML 2 ML VIAL IV ONE (09:00)
--- NOTE | 2020-06-10 09:23 | Progress Note ---
DATE: Pulmonary Critical Care Progress Note SUBJECTIVE: The patient is currently in the supine position. He is on a PRVC mode of ventilation at a rate of 30 with a tidal volume of 400 and FiO2 of 100%. His PEEP is set at 12. He is on Levophed at 3 mcg. He is on Versed, fentanyl, and rocuronium. PHYSICAL EXAMINATION: VITAL SIGNS: The blood pressure is 113/60 and the saturation is 95% on the above settings. His T-max is 99.6. HEENT: No facial swelling or erythema. There is an oral endotracheal tube. There is a PICC line in place as well as an arterial line. CARDIAC: Regular rate and rhythm with normal S1, S2. LUNGS: Auscultation of lungs reveals crackles at the bases. There is no wheezing. ABDOMEN: Soft, nontender. There is no rebound or guarding. EXTREMITIES: No leg edema or calf tenderness. There is no cyanosis or clubbing. SKIN: No rashes. NEUROLOGICAL: No focal abnormalities. LABORATORY DATA: Albumin is 1.4. The BUN to creatinine ratio is normal. The sodium is 133. The glucose is 116-270. The platelet count is 203 and hemoglobin is 12.5. The white blood cell count is 17.6. RADIOGRAPHIC DATA: Chest x-ray shows bilateral opacities. IMPRESSION: 1. Acute respiratory failure. 2. Viral pneumonia and coronavirus disease-19 infection. 3. Diabetes. 4. Hypoalbuminemia. PLAN: 1. Place the patient in prone position again today. 2. The patient to receive albumin with a small amount of Lasix. 3. Continue Lovenox. 4. Continue to monitor and control blood sugars. 5. Complete dexamethasone. 6. Continue meropenem. 7. Wean Levophed. 8. Case discussed with nightshift nursing, dayshift nursing, Internal Medicine, Infectious Disease, and family. Greater than 35 minutes in direct critical care time. Brayden De Dios MD [facility]/MAURIL[facility] /[id number]
[2020-06-10] MEDS: MIDAZOLAM HCL 5MG/ML 10ML VIAL 100 ML IV PRN ×2 (10:27→18:55)
[2020-06-10] MEDS: ENOXAPARIN SOD INJ 40 MG/0.4 ML SYR SC SCH ×2 (10:28→20:52)
[2020-06-10] MEDS: ALBUMIN 25% 25GM 100ML 0.25 GM/ML BTL IV SCH ×2 (11:31→17:47)
--- NOTE | 2020-06-10 13:25 | NUR ---
1000: Patient placed in prone position without complications 1100: Levophed gtt stopped, Peter, fentanyl, and versed gtts titrated down as tolerated/compliant with the vent. 1315: Phone discussion with Dr. Trent and patient's daughter regarding patient status. The patient's daughter confirmed that the patient had been sick for 2-3 weeks prior to admission and had been self-isolating at home. He reportedly went to a clinic, where he was diagnosed with diabetes, and COVID was not addressed during this visit. Symptoms had worsened, leading to patient to seek emergency medical care at this hospital.
--- NOTE | 2020-06-10 14:15 | Progress Note ---
DATE: Mr. Hurtado remains on a ventilator. Today, I called his daughter. We talked about him. The patient has been sick for 3 weeks and in the matter of fact, he went to [facility] where he was checked and he was told positive, but latter came back negative and that was confusing for them and then he felt well. He stayed at home and then he got worse again, that is why he came to us and he was admitted. The patient does speak perfect Israeli. When he was in the emergency room, I did get the history from him. The patient is currently intubated and sedated. This is day #8. I had a long discussion with the patient's daughter. We need to give the time. We will do our best. The patient was recently diagnosed also with diabetes. He is on meropenem, dexamethasone to finish it for 10 days. Seven days of current choice of antibiotic, 10 days of dexamethasone. Supportive care. Reassess daily. Answered all her questions. MD MARA Sarmiento/MODL /[id number]
[2020-06-10 14:48] LABS: ABG HCO3 30 mmol/L (22-26); ABG PCO2 53 mmHg (35-45); ABG PH 7.37 (7.35-7.45); ABG PO2 74 mmHg (80-105); ABG TCO2 32
--- NOTE | 2020-06-10 15:38 | Diagnostic Imaging Report ---
EXAM: CHEST SINGLE (PORTABLE) DATE: 06/10/2020 3:16 PM INDICATION: Respiratory distress, concern for pneumothorax. COMPARISON: 06/10/2020 at 0441 FINDINGS: Endotracheal tube and right-sided PICC line identified in stable position. Enteric tube noted coursing below the diaphragm. Stable appearing airspace opacities identified throughout the lungs bilaterally. There is no evidence for pneumothorax or significant pleural effusion. The cardiomediastinal silhouette is stable in appearance. The osseous structures are intact. IMPRESSION: No significant interval change from the prior examination from earlier 06/10/2020. Specifically, no evidence for pneumothorax. Signed by: Dr. Sergei Hudson MD on 06/10/2020 3:35 PM
--- NOTE | 2020-06-10 16:34 | NUR ---
Nutrition Intervention Note RD Recommendation(s) for Physician: -Recommend modifying TF to Vital AF 1.2 @ goal rate of 60 mL/hr (provides 1728 kcal, 108 g protein) -Fluid management per MD Plan of Care: RD following, monitoring for tolerance and adequacy, tube feed recommendation Nutrition reason for involvement: enteral nutrition RD Assessment 06/10: Early follow up due to initiation of enteral nutrition. Pt is now intubated and tube feed order was placed yesterday per chart. Tube feed recommendations provided. Will continue to monitor (06/06/20) Chart reviewed. Labs and meds reviewed. RD received consult for nutrition assessment. Pt is a 55 year old male admitted with acute respiratory distress and COVID-19. Pt is in the [facility] ICU and RD is unable to enter room due to isolation precautions. RD called pt's nurse over the phone. RN stated pt is eating well and is consuming >50% of meals. Speech therapy evaluated pt and recommended a nectar thick liquid diet at this time and a modified barium swallow study be performed to rule out aspiration. Will continue to monitor Principal Problems/Diagnoses: acute respiratory distress, COVID-19 PMH: Diabetes. I/O: 2810/2074 GI: soft, non-tender abdomen, BM not recorded Skin: intact Labs: (06/10) Na 133, K 4.4, BUN 15, Cr 0.67, Glu 295, Ca 7.7 Meds: vitamin C, zinc sulfate, antibiotic, insulin, dexmethasone, norepinephrine, fentanyl Ht: 70 in Wt: 172 lbs(06/09) 170 lb (06/06) BMI: 24.4 kg/m2 using wt of 170 lbs IBW:166 lb Malnutrition Evaluation (06/06/20) Unable to fully assess due to isolation precautions. Will re-evaluate at follow-up as appropriate. Nutrition Prescription (Diet Order): Glucerna 1.2 @ 30 mL/hr (provides 864 kcal, 43 g protein) Estimated Nutritional Needs: 2979-2499 calories/day (20-25 kcal/kg CBW) 93-155 g protein/day (1.2-2 g pro/kg CBW) Diet Adequacy: Not meeting calorie needs, Not meeting protein needs Tolerance: Tolerating TF Diet Education Needs Assessment: Diet education not indicated, pt is intubated Nutrition Care Level: moderate Nutrition Diagnosis: Inadequate oral intake related to acute respiratory failure/mechanical ventilation as evidenced by need for enteral nutrition. Goal: Patient will meet 75-100% of estimated needs by follow up Progress: goal not met Interventions: -Composition, Rate, Route, Recommended Modifications Monitoring/Evaluation: -Total energy intake, Total protein intake, Formula/Solution, Weight change Signed: Venessa Green RD, LD
[2020-06-10] MEDS: FENTANYL CITRATE INJ 2,000 MCG in SODIUM CHLORIDE 0.9% 250ML 210 ML IV PRN (17:15)
[2020-06-10 17:42] LABS: ABG HCO3 33 mmol/L (22-26); ABG PCO2 55 mmHg (35-45); ABG PH 7.38 (7.35-7.45); ABG PO2 57 mmHg (80-105); ABG TCO2 34
--- NOTE | 2020-06-10 17:58 | NUR ---
1500: Pt had episode of bradycardia (HR 48 lowest) followed by drop in blood pressure and decreasing O2 sats. Dr De Dios notified for O2 sat 84% on 100% FiO2. Stat CXR ordered. Levophed gtt restarted. 1515: Stat CXR performed and seen by Dr De Dios at bedside, no pnuemo/dislodgement of ETT. Levo at 6mcg. 1600: Pt O2 sat 90-94%. Levo at 2 mcg. 1745: Levo gtt off
[2020-06-10] MEDS: ROCURONIUM BROMIDE 1,250 MG in SODIUM CHLORIDE 0.9% 250ML 125 ML IV SCH (20:53)
[2020-06-10 23:39] LABS: ABG HCO3 32 mmol/L (22-26); ABG PCO2 55 mmHg (35-45); ABG PH 7.37 (7.35-7.45); ABG PO2 92 mmHg (80-105); ABG TCO2 33
--- NOTE | 2020-06-10 23:43 | NUR ---
SUBJECTIVE: The patient continues on ventilator. Rate 30 with a tidal volume of 400 and FiO2 of 100%. ROS: Unable to perform. PHYSICAL EXAMINATION: VITAL SIGNS: BP 113/60, SpO2 95%, Max temp 99.6. GENERAL: On ventilator. HEENT: Endotracheal tube in place. PICC line in place. CARDIAC: Regular rate and rhythm with normal S1, S2. LUNGS: Crackles at the bases. ABDOMEN: Soft. EXTREMITIES: No leg edema, cyanosis or clubbing. SKIN: No rashes. NEUROLOGICAL: No focal abnormalities. LAB RESULTS: Albumin 1.4, sodium 133, glucose 270, platelet count 203, hemoglobin 12.5, WBC 17.6. IMAGING: Chest x-ray shows bilateral opacities. ASSESSMENT: 1. Acute respiratory failure. 2. Viral pneumonia and coronavirus disease-19 infection. 3. Diabetes. 4. Hypoalbuminemia. 06/10/2020 Continue Levophed at 3 mcg, versed, fentanyl, and rocuronium. PLAN: Prone position Telemetry BP control Glycemic control Pain control DVT/GI prophylaxis Antibiotics. meropenem Albumin Diuretics Steroids Wean Levophed Pulmonology consult noted Plan discussed with family and nursing staff
[2020-06-11] VITALS (26 sets, daily range): BP systolic 91–140; BP diastolic 52–80
[2020-06-11] MEDS: INSULIN LISPRO 100 UNIT/1 ML 3ML VIAL SQ SCH ×4 (00:57→18:33)
--- NOTE | 2020-06-11 02:34 | Progress Note ---
DATE: 06/10/2020 Full progress note already on file. MD COMPA Kraus /[id number]
[2020-06-11] MEDS: SODIUM CHLORIDE 0.9% 250ML IRRIG IR SCH ×6 (02:45→22:52)
[2020-06-11] MEDS: MEROPENEM 1GM 100 ML IV SCH ×3 (05:18→22:52)
[2020-06-11] MEDS: DEXAMETHASONE SOD PHOS INJ 4 MG/ML VIAL IV SCH (05:18)
[2020-06-11 05:23] LABS: HEMATOCRIT 34.8 % (38.2-49.6); HEMOGLOBIN 11.6 g/dL (14.0-18.0); LYMPHOCYTES # (AUTO) 1.2 (1.0-3.2); LYMPHOCYTES % 11.1 % (18.0-39.1); MEAN CORPUSCULAR HEMOGLOBIN 31.6 pg (28-32); MEAN CORPUSCULAR HGB CONC 33.3 g/dL (31-35); MEAN CORPUSCULAR VOLUME 94.8 fL (81-99); MONOCYTES # (AUTO) 0.6 (0.2-0.8); MONOCYTES % 5.5 % (4.4-11.3); NEUTROPHILS # (AUTO) 8.5 (2.1-6.9); NEUTROPHILS % 82.8 % (38.7-80.0); PLATELET COUNT 135 x10e3/uL (140-360); RED BLOOD COUNT 3.67 x10e6/uL (4.3-5.7); RED CELL DISTRIBUTION WIDTH 11.9 % (11.7-14.4)
[2020-06-11 06:05] LABS: ALANINE AMINOTRANSFERASE 21 IU/L (0-55); ALBUMIN/GLOBULIN RATIO 0.5 (0.8-2.0); ALKALINE PHOSPHATASE 60 IU/L (40-150); BLOOD UREA NITROGEN 20 mg/dL (7-26); BUN/CREATININE RATIO 33 (6-25); CARBON DIOXIDE 31 mmol/L (22-29); CHLORIDE 99 mmol/L (98-107); EST GLOMERULAR FILTRATION RATE > 60 ML/MIN (60-); GLUCOSE 155 mg/dL (74-118); SODIUM 136 mmol/L (136-145)
[2020-06-11 08:24] LABS: ABG HCO3 33 mmol/L (22-26); ABG PCO2 58 mmHg (35-45); ABG PH 7.37 (7.35-7.45); ABG PO2 57 mmHg (80-105); ABG TCO2 35
[2020-06-11] MEDS: ZINC SULFATE 220 MG CAP PO SCH (08:55)
[2020-06-11] MEDS: ASCORBIC ACID 500 MG TAB PO SCH ×2 (08:55→16:55)
[2020-06-11] MEDS: ENOXAPARIN SOD INJ 40 MG/0.4 ML SYR SC SCH ×2 (08:55→21:13)
[2020-06-11] MEDS: CHOLECALCIFEROL 1,000 UNIT TAB PO SCH (08:55)
--- NOTE | 2020-06-11 09:48 | Progress Note ---
DATE: Pulmonary Critical Care Progress Note SUBJECTIVE: The patient remains in the prone position. He is on a PRVC mode of ventilation at a rate of 30 with a tidal volume of 400 and FiO2 of 100%. His PEEP is set at 14. He is off Levophed. PHYSICAL EXAMINATION: VITAL SIGNS: The blood pressure is 91/62, pulse is 61, and saturation is 94%. HEENT: No facial swelling or erythema. LYMPHATIC: No submandibular, cervical, or supraclavicular adenopathy. CARDIAC: Regular rate and rhythm with normal S1, S2. LUNGS: Auscultation of lungs reveals rhonchorous breath sounds bilaterally. There is no wheezing. ABDOMEN: Soft, nontender. There is no rebound or guarding. EXTREMITIES: No leg edema or calf tenderness. There is no cyanosis or clubbing. SKIN: No rashes. LABORATORY DATA: White blood cell count is 10.3 and the hemoglobin 11.6. The platelet count is 135. The BUN to creatinine ratio is 20 to 0.6. The other electrolytes are within normal limits. Albumin is 2. IMPRESSION: 1. Acute respiratory failure. 2. Viral pneumonia and coronavirus disease-19 infection. 3. Diabetes. 4. Hypoalbuminemia. PLAN: 1. Place the patient in the prone position today. 2. Continue Lovenox. 3. Repeat ABG at 1300. 4. Continue to monitor and control blood sugars. 5. Complete dexamethasone. 6. Complete meropenem. 7. Case discussed with nightshift nursing, dayshift nursing, Internal Medicine, Infectious Disease, and family. Greater than 35 minutes in direct critical care time. Brayden De Dios MD [facility]/MODL /[id number]
--- NOTE | 2020-06-11 11:39 | NUR ---
Patient seen and evaluated, full note to follow.
[2020-06-11] MEDS ORDERED: FUROSEMIDE INJ 10 MG/ML 4 ML VIAL IV NR (12:00)
--- NOTE | 2020-06-11 13:25 | Progress Note ---
DATE: SUBJECTIVE: Mr. Hurtado remains in intensive care unit. He is on the ventilator. He is currently lying in bed, intubated. OBJECTIVE: HEENT: Normocephalic. NECK: Supple. CHEST: Crackles. HEART: S1, S2. ABDOMEN: Soft. IMPRESSION: Respiratory failure, Coronavirus disease-19. Concerned about aspiration pneumonia. Discussed with medical team. He is currently on meropenem to finish 7 days. His white count is coming down. It is down to 10. Suggest giving one dose of Lasix since I am concerned about fluid overload. Discussed with critical care. MD MARA Sarmiento/MODL /[id number]
[2020-06-11 13:45] LABS: ABG PH 7.32 (7.35-7.45)
[2020-06-11 13:46] LABS: ABG HCO3 31 mmol/L (22-26); ABG PCO2 61 mmHg (35-45); ABG PO2 60 mmHg (80-105); ABG TCO2 33
[2020-06-11] MEDS: MIDAZOLAM HCL 5MG/ML 10ML VIAL 100 ML IV PRN (14:01)
--- NOTE | 2020-06-11 15:56 | Diagnostic Imaging Report ---
EXAMINATION: CHEST SINGLE (PORTABLE) INDICATION: Respiratory failure COMPARISON: Multiple prior chest radiograph including most recent on 06/10/2020. FINDINGS: TUBES and LINES: Endotracheal tube, nasogastric tube and right PICC are unchanged. LUNGS: No interval change in multifocal interstitial and airspace opacities throughout both lungs. PLEURA: No pleural effusion or pneumothorax. HEART AND MEDIASTINUM: The cardiomediastinal silhouette is unchanged. BONES AND SOFT TISSUES: No acute osseous lesion. Soft tissues are unremarkable. UPPER ABDOMEN: No free air under the diaphragm. IMPRESSION: 1. No interval change in radiographic appearance of the lungs. 2. Stable lines/tubes. Signed by: Herminia Nowak MD on 06/11/2020 3:53 PM
[2020-06-11] MEDS: FENTANYL CITRATE INJ 2,000 MCG in SODIUM CHLORIDE 0.9% 250ML 210 ML IV PRN (18:33)
[2020-06-11 21:06] LABS: ABG HCO3 36 mmol/L (22-26); ABG PCO2 58 mmHg (35-45); ABG PO2 72 mmHg (80-105); ABG TCO2 37
[2020-06-11] MEDS: ROCURONIUM BROMIDE 1,250 MG in SODIUM CHLORIDE 0.9% 250ML 125 ML IV SCH (21:45)
[2020-06-12] VITALS (25 sets, daily range): BP systolic 84–117; BP diastolic 45–75
[2020-06-12] MEDS: INSULIN LISPRO 100 UNIT/1 ML 3ML VIAL SQ SCH ×5 (00:29→23:51)
--- NOTE | 2020-06-12 01:57 | Progress Note ---
DATE: 06/11/2020 SUBJECTIVE: The patient is critically ill. Remains on ventilator support to 100%. Tidal volume 500, respiratory rate 30. OBJECTIVE: VITAL SIGNS: Blood pressure at this time is 112/73, patient on the Vent , pulse of 98, pulse oximetry 94%. LABORATORY DATA: Disclosed. Hemoglobin 9.6, white blood cell count 10.32, platelet count 125,000. There is improvement in WBC count that has come from 20,000 down to 10,000. Chem profile reveals sodium 136, potassium 4.0, chloride 99, CO2 of 31, BUN 20, creatinine 0.60. Chest x-rays disclosed no interval changes in radiographic appearance of the lungs. A 3-view chest x-rays had revealed no evidence of pneumothorax. On physical exam, the patient is on the prone position. Lungs have good air entry posteriorly. ASSESSMENT: 1. Acute respiratory failure. 2. Viral pneumonia secondary to coronavirus. 3. Diabetes mellitus. PLAN OF CARE: Continue present care as advised. List of medications reviewed. MD PENNY Kraus/MODL /[id number] MTDD
[2020-06-12] MEDS: SODIUM CHLORIDE 0.9% 250ML IRRIG IR SCH ×6 (02:36→23:27)
[2020-06-12] MEDS: DEXAMETHASONE SOD PHOS INJ 4 MG/ML VIAL IV SCH (05:53)
[2020-06-12] MEDS: MEROPENEM 1GM 100 ML IV SCH ×3 (05:53→21:13)
--- NOTE | 2020-06-12 05:56 | Diagnostic Imaging Report ---
EXAMINATION: CHEST SINGLE (PORTABLE) INDICATION: ^resp failure COMPARISON: 06/11/2020 FINDINGS: AP view TUBES and LINES: Stable endotracheal and enteric tubes. Stable right PICC. LUNGS: Lungs are well inflated. Unchanged diffuse bilateral airspace opacities. PLEURA: No pleural effusion or pneumothorax. HEART AND MEDIASTINUM: Prominent partially obscured cardiac silhouette. BONES AND SOFT TISSUES: No acute osseous lesion. Soft tissues are unremarkable. UPPER ABDOMEN: No free air under the diaphragm. IMPRESSION: No significant interval change from prior exam. Signed by: Dr. Bigg Bowen MD on 06/12/2020 5:53 AM
[2020-06-12 06:41] LABS: BASOPHILS % 0.1 % (0.0-1.0); EOSINOPHILS # (AUTO) 0.1 (0.0-0.4); EOSINOPHILS % 0.4 % (0.0-6.0); HEMATOCRIT 41.7 % (38.2-49.6); HEMOGLOBIN 13.8 g/dL (14.0-18.0); LYMPHOCYTES % 13.7 % (18.0-39.1); MEAN CORPUSCULAR HEMOGLOBIN 31.4 pg (28-32); MEAN CORPUSCULAR HGB CONC 33.1 g/dL (31-35); MEAN CORPUSCULAR VOLUME 94.8 fL (81-99); MONOCYTES # (AUTO) 1.1 (0.2-0.8); MONOCYTES % 7.4 % (4.4-11.3); NEUTROPHILS # (AUTO) 11.1 (2.1-6.9); NEUTROPHILS % 77.6 % (38.7-80.0); PLATELET COUNT 175 x10e3/uL (140-360); RED CELL DISTRIBUTION WIDTH 11.9 % (11.7-14.4)
[2020-06-12 07:23] LABS: ALANINE AMINOTRANSFERASE 26 IU/L (0-55); ALBUMIN/GLOBULIN RATIO 0.5 (0.8-2.0); ALKALINE PHOSPHATASE 82 IU/L (40-150); ANION GAP 11.2 mmol/L (8-16); BLOOD UREA NITROGEN 23 mg/dL (7-26); BUN/CREATININE RATIO 36 (6-25); CALCIUM 8.3 mg/dL (8.4-10.2); CARBON DIOXIDE 35 mmol/L (22-29); CHLORIDE 93 mmol/L (98-107); CREATININE, SERUM 0.64 mg/dL (0.72-1.25); EST GLOMERULAR FILTRATION RATE > 60 ML/MIN (60-); GLUCOSE 148 mg/dL (74-118); POTASSIUM 4.2 mmol/L (3.5-5.1); SODIUM 135 mmol/L (136-145)
[2020-06-12 08:10] LABS: ABG HCO3 37 mmol/L (22-26); ABG PCO2 63 mmHg (35-45); ABG PH 7.38 (7.35-7.45); ABG PO2 69 mmHg (80-105); ABG TCO2 39
[2020-06-12] MEDS ORDERED: VECURONIUM BROMIDE FOR INJ 20 MG VIAL IV ONE (08:30)
[2020-06-12] MEDS: ENOXAPARIN SOD INJ 40 MG/0.4 ML SYR SC SCH ×2 (08:49→20:31)
[2020-06-12] MEDS: ZINC SULFATE 220 MG CAP PO SCH (08:49)
[2020-06-12] MEDS: CHOLECALCIFEROL 1,000 UNIT TAB PO SCH (08:49)
[2020-06-12] MEDS: ASCORBIC ACID 500 MG TAB PO SCH ×2 (08:49→20:31)
[2020-06-12] MEDS: MIDAZOLAM HCL 5MG/ML 10ML VIAL 100 ML IV PRN ×2 (09:42→15:20)
--- NOTE | 2020-06-12 10:43 | Progress Note ---
DATE: Pulmonary Critical Care Progress Note. BODY AFTTER REPORT TITLE: SUBJECTIVE: The patient remains in the prone position. He is currently on a PRVC at a rate of 30 with a tidal volume of 400 and FiO2 of 100%. His PEEP is set at 12. PHYSICAL EXAMINATION: VITAL SIGNS: Blood pressure is 95/60 and the heart rate is 1110. His pulse ox is 93% on the above ventilator settings. HEENT: No facial swelling or erythema. There is an endotracheal tube in good position. LYMPHATIC: No submandibular, cervical, or supraclavicular adenopathy. CARDIAC: Regular rate and rhythm with normal S1 and S2. LUNGS: Auscultation of lungs reveals rhonchorous breath sounds bilaterally. There is no wheezing. ABDOMEN: Soft, nontender. There is no rebound or guarding. EXTREMITIES: No leg edema or calf tenderness. There is no cyanosis or clubbing. SKIN: No rashes. NEUROLOGICAL: No focal abnormalities. LABORATORY DATA: White blood cell count is 14.3 and hemoglobin is 13.8. The platelet count is 175,000. The BUN to creatinine ratio is 23 to 0.64. Other electrolytes are within normal limits. Albumin is 2.0. ABG is 7.38, 63, 69, and 37. IMPRESSION: 1. Acute respiratory failure. 2. Viral pneumonia and COVID-19 infection. 3. Diabetes. 4. Hypoalbuminemia. PLAN: 1. Place the patient back in supine position today. 2. Continue ventilator settings and repeat ABG. 3. Continue to monitor and control blood sugars. 4. Continue Lovenox. 5. Complete dexamethasone. 6. Complete meropenem. 7. Continue fentanyl, Versed and rocuronium. 8. Case discussed with nightshift nursing, dayshift nursing, Respiratory, Infectious Disease, Internal Medicine and family. Greater than 35 minutes in direct critical care time. Brayden De Dios MD [facility]/MODL /[id number]
[2020-06-12] MEDS: FENTANYL CITRATE INJ 2,000 MCG in SODIUM CHLORIDE 0.9% 250ML 210 ML IV PRN (11:02)
--- NOTE | 2020-06-12 14:34 | NUR ---
Date of service: 06/12/2020 Events noted. The patient remains on the ventilator. He is being followed by pulmonary. Recommendations noted. He is presently on PRVC at the rate of 30. Tidal volume 400, FiO2 100%. PEEP 12 . Vital signs: Blood pressure while I was 83, respiratory rate 30, pulse 108, temperature 100.9. Physical exam: HEENT: No gross abnormalities Neck: Supple no JVD Lungs: Rhonchi noted. Heart: Regular rate and rhythm, no murmurs no gallops Abdomen: Soft non tender, no guarding. Extremities: No edema Neurologic: Sedated. Psychiatrist: Unable to fully. Lab data: WBC 14.30, hemoglobin 13.8, platelet count 175,000 Valarie profile revealed: Sodium 135, potassium 4.2, chloride 93, CO2 35, BUN 23, creatinine 0.64, liver function tests were normal, albumin 2.0 ASSESSMENT: 1. Acute respiratory failure. 2. Viral pneumonia secondary to coronavirus. 3. Aspiration pneumonia 4. Diabetes mellitus type 2 PLAN OF CARE: Continue present care as advised. List of medications reviewed. Continue meropenem x7 days. Continue anticoagulation. Monitor blood pressure and pulse. Patient condition discussed with Dr. De Dios and with nursing staff
[2020-06-12 20:16] LABS: ABG HCO3 37 mmol/L (22-26); ABG PCO2 62 mmHg (35-45); ABG PH 7.38 (7.35-7.45); ABG PO2 72 mmHg (80-105); ABG TCO2 39
[2020-06-12] MEDS: ROCURONIUM BROMIDE 1,250 MG in SODIUM CHLORIDE 0.9% 250ML 125 ML IV SCH (21:45)
[2020-06-13] VITALS (24 sets, daily range): BP systolic 81–151; BP diastolic 53–82
[2020-06-13] MEDS: ACETAMINOPHEN 325 MG TAB PO PRN (00:37)
--- NOTE | 2020-06-13 02:59 | NUR ---
Placed patient on prone position at 01:00 AM 06/13/20
[2020-06-13] MEDS: SODIUM CHLORIDE 0.9% 250ML IRRIG IR SCH ×6 (03:24→23:04)
[2020-06-13] MEDS ORDERED: SODIUM CHLORIDE 0.9% 250ML 250 ML ONE (04:05)
[2020-06-13 05:15] LABS: BASOPHILS % 0.2 % (0.0-1.0); EOSINOPHILS # (AUTO) 0.2 (0.0-0.4); EOSINOPHILS % 0.9 % (0.0-6.0); HEMOGLOBIN 13.4 g/dL (14.0-18.0); LYMPHOCYTES # (AUTO) 2.2 (1.0-3.2); LYMPHOCYTES % 13.2 % (18.0-39.1); MEAN CORPUSCULAR HEMOGLOBIN 31.7 pg (28-32); MEAN CORPUSCULAR HGB CONC 33.5 g/dL (31-35); MEAN CORPUSCULAR VOLUME 94.6 fL (81-99); NEUTROPHILS # (AUTO) 12.9 (2.1-6.9); NEUTROPHILS % 78.5 % (38.7-80.0); PLATELET COUNT 191 x10e3/uL (140-360); RED BLOOD COUNT 4.23 x10e6/uL (4.3-5.7); RED CELL DISTRIBUTION WIDTH 11.9 % (11.7-14.4)
[2020-06-13 05:25] LABS: ALANINE AMINOTRANSFERASE 29 IU/L (0-55); ALBUMIN 1.8 g/dL (3.5-5.0); ALBUMIN/GLOBULIN RATIO 0.5 (0.8-2.0); ALKALINE PHOSPHATASE 77 IU/L (40-150); BLOOD UREA NITROGEN 21 mg/dL (7-26); BUN/CREATININE RATIO 34 (6-25); CALCIUM 7.9 mg/dL (8.4-10.2); CARBON DIOXIDE 36 mmol/L (22-29); CHLORIDE 93 mmol/L (98-107); CREATININE, SERUM 0.61 mg/dL (0.72-1.25); EST GLOMERULAR FILTRATION RATE > 60 ML/MIN (60-); GLUCOSE 159 mg/dL (74-118); SODIUM 134 mmol/L (136-145)
[2020-06-13] MEDS: MEROPENEM 1GM 100 ML IV SCH (05:59)
[2020-06-13] MEDS: INSULIN LISPRO 100 UNIT/1 ML 3ML VIAL SQ SCH ×4 (05:59→23:06)
--- NOTE | 2020-06-13 06:53 | NUR ---
infectious disease progress note This is late entry for June 12, 2020 Patient seen and examined chart reviewed events noted discussed with the medical team he patient remains in the prone position. He is currently on a PRVC at a rate of 30 with a tidal volume of 400 and FiO2 of 100%. His PEEP is set at 12. PHYSICAL EXAMINATION: VITAL SIGNS: Blood pressure is 95/60 and the heart rate is 1110. His pulse ox is 93% on the above ventilator settings. HEENT: No facial swelling or erythema. There is an endotracheal tube in good position. LYMPHATIC: No submandibular, cervical, or supraclavicular adenopathy. CARDIAC: Regular rate and rhythm with normal S1 and S2. LUNGS: Auscultation of lungs reveals rhonchorous breath sounds bilaterally. There is no wheezing. ABDOMEN: Soft, nontender. There is no rebound or guarding. EXTREMITIES: No leg edema or calf tenderness. There is no cyanosis or clubbing. SKIN: No rashes. NEUROLOGICAL: No focal abnormalities. LABORATORY DATA: White blood cell count is 14.3 and hemoglobin is 13.8. The platelet count is 175,000. The BUN to creatinine ratio is 23 to 0.64. Other electrolytes are within normal limits. Albumin is 2.0. ABG is 7.38, 63, 69, and 37. IMPRESSION: 1. Acute respiratory failure. 2. Viral pneumonia and COVID-19 infection. 3. Diabetes. 4. Hypoalbuminemia. Prognosis remains guarded Continued plan is ordered Discussed with the family and they are willing to try convalescent plasma They are aware is still experimental They can refuse at any time We will give once available We will type and cross Rechecking
--- NOTE | 2020-06-13 06:57 | NUR ---
Infectious disease progress note Patient seen and examined chart reviewed and discussed with medical team This is June 13, 2020 Patient remains intensive care unit patient is intubated sedated. patient remains with no fever HEENT normocephalic neck supple chest crackles bilateral heart S1-S2 abdomen soft Barson present extremities no edema skin no rash covid 19 Respiratory failure Status post aspiration pneumonia we will discontinue antibiotic patient finished 5 days prognosis remains very guarded Recheck CBC to check a panel please see the orders Follow
[2020-06-13 07:16] LABS: ALBUMIN 1.8 g/dL (3.5-5.0); BILIRUBIN,DIRECT 0.4 mg/dL (0.0-0.5)
[2020-06-13] MEDS: CHOLECALCIFEROL 1,000 UNIT TAB PO SCH (09:30)
[2020-06-13] MEDS: ASCORBIC ACID 500 MG TAB PO SCH ×2 (09:30→20:44)
[2020-06-13] MEDS: ZINC SULFATE 220 MG CAP PO SCH (09:30)
[2020-06-13] MEDS: ENOXAPARIN SOD INJ 40 MG/0.4 ML SYR SC SCH ×2 (09:30→20:44)
[2020-06-13 09:34] LABS: ABG HCO3 39 mmol/L (22-26); ABG PCO2 66 mmHg (35-45); ABG PH 7.38 (7.35-7.45); ABG PO2 70 mmHg (80-105); ABG TCO2 41
--- NOTE | 2020-06-13 10:42 | Progress Note ---
DATE: SUBJECTIVE: The patient is currently afebrile. He remains in the prone position. He is currently on a PRVC mode of ventilation at a rate of 30 with a tidal volume of 400. His FiO2 is set at 90% and his PEEP is set at 12. PHYSICAL EXAMINATION: VITAL SIGNS: The patient is afebrile. The blood pressure is 102/60 and saturation is 94%. HEENT: Shows no facial swelling or erythema. LYMPHATIC: Shows no submandibular, cervical, or supraclavicular adenopathy. CARDIAC: Reveals regular rate and rhythm with normal S1 and S2. LUNGS: Auscultation of lungs reveals crackles at the bases. There is no wheezing. ABDOMEN: Soft and nontender. There is no rebound or guarding. EXTREMITIES: Shows no leg edema or calf tenderness. There is no cyanosis or clubbing. SKIN: Shows no rashes. NEUROLOGICAL: Shows no focal abnormalities. LABORATORY DATA: An albumin is 1.8. The BUN to creatinine ratio is normal. The other electrolytes are within normal limits. The white blood cell count is 16.4 and the hemoglobin is 13.4. The platelet count is 191. Blood gases; 7.38, 66, 70, and 39. IMPRESSION: 1. Acute respiratory failure. 2. Viral pneumonia and COVID-19 infection. 3. Diabetes. 4. Anemia. 5. Hypoalbuminemia. PLAN: 1. Continue current ventilator settings and monitor ABG. 2. Continue to monitor and control blood sugars. 3. Continue Lovenox. 4. Continue dexamethasone. 5. Complete current antibiotics. 6. Continue fentanyl, Versed, and rocuronium. 7. Case discussed with family yesterday as well as with Dr. Larsen. Case also discussed with rn shift mgr nursing, day shift nursing, Respiratory, and Infectious Disease. Greater than 35 minutes in direct critical care time. Brayden De Dios MD [facility] /[id number]
[2020-06-13] MEDS: MIDAZOLAM HCL 5MG/ML 10ML VIAL 100 ML IV PRN ×2 (12:40→22:43)
[2020-06-13] MEDS ORDERED: FENTANYL 2,000 MCG/250 ML BAG ONE (14:06)
[2020-06-13] MEDS ORDERED: MIDAZOLAM HCL 5MG/ML 10ML VIAL 100 ML BAG IV ONE (14:06)
[2020-06-13] MEDS: FENTANYL CITRATE INJ 2,000 MCG in SODIUM CHLORIDE 0.9% 250ML 210 ML IV PRN ×2 (14:22→22:40)
--- NOTE | 2020-06-13 17:33 | Diagnostic Imaging Report ---
EXAMINATION: CHEST SINGLE (PORTABLE) COMPARISON: Chest x-ray/ INDICATION: ^resp failure ^[id number] ^1549 DISCUSSION: Frontal view of the chest obtained at 1549 hours and performed in the prone position. HEART AND MEDIASTINUM: Stable cardiomegaly. LINES: Endotracheal tube terminates 5 to 6 cm above the tee. Enteric tube extends past the diaphragm. Right PICC line terminates in the SVC. LUNGS/PLEURA: The lungs are hyperinflated at baseline. Coarse alveolar and interstitial airspace opacities are redemonstrated without significant change. No large effusions. No pneumothorax. BONES AND SOFT TISSUES: Stable. ABDOMEN: Enteric contrast in the transverse colon and splenic flexure of the colon. IMPRESSION: 1. Support devices as described above. 2. No change in coarse interstitial and alveolar airspace opacities, suggestive of atypical viral pneumonia or ARDS. Signed by: Dr. Jb Khan MD on 06/13/2020 5:29 PM
--- NOTE | 2020-06-13 19:03 | Diagnostic Imaging Report ---
EXAMINATION: CHEST SINGLE (PORTABLE) COMPARISON: Chest x-ray 1549 hours INDICATION: ^rule out pneumo ^[id number] ^1828 DISCUSSION: Frontal view of the chest obtained at 1829 hours. HEART AND MEDIASTINUM: The cardiomediastinal silhouette is unremarkable. LINES: Endotracheal tube terminates 5 to 6 cm above the tee. Right PICC line terminates in the SVC. Enteric tube extends past the diaphragm. LUNGS/PLEURA: Coarse interstitial and alveolar airspace opacities are stable. No new pulmonary findings. No pleural effusion or pneumothorax. BONES AND SOFT TISSUES: Stable. Abdomen: Flocculated enteric contrast in the splenic flexure of the colon. IMPRESSION: 1. Support devices as described above. 2. No evidence of pneumothorax or pleural effusion. 3. Stable coarse interstitial and alveolar airspace opacities. Signed by: Dr. Jb Khan MD on 06/13/2020 6:59 PM
[2020-06-13 19:36] LABS: BASOPHILS # (AUTO) 0.1 (0.0-0.1); BASOPHILS % 0.3 % (0.0-1.0); EOSINOPHILS # (AUTO) 0.3 (0.0-0.4); HEMATOCRIT 45.1 % (38.2-49.6); HEMOGLOBIN 15.1 g/dL (14.0-18.0); LYMPHOCYTES # (AUTO) 1.5 (1.0-3.2); MEAN CORPUSCULAR HEMOGLOBIN 32.1 pg (28-32); MEAN CORPUSCULAR HGB CONC 33.5 g/dL (31-35); MEAN CORPUSCULAR VOLUME 95.8 fL (81-99); MONOCYTES # (AUTO) 1.1 (0.2-0.8); MONOCYTES % 4.2 % (4.4-11.3); NEUTROPHILS # (AUTO) 22.3 (2.1-6.9); NEUTROPHILS % 86.6 % (38.7-80.0); PLATELET COUNT 219 x10e3/uL (140-360); RED BLOOD COUNT 4.71 x10e6/uL (4.3-5.7); RED CELL DISTRIBUTION WIDTH 12.1 % (11.7-14.4)
[2020-06-13 19:57] LABS: ABG HCO3 40 mmol/L (22-26); ABG PCO2 79 mmHg (35-45); ABG PH 7.31 (7.35-7.45); ABG PO2 53 mmHg (80-105); ABG TCO2 42
[2020-06-13] MEDS ORDERED: ACETAMINOPHEN 1000 MG/100 ML IV PRN (20:00)
[2020-06-13 20:23] LABS: BAND NEUTROPHILS % (MANUAL) 1 %; LYMPHOCYTES % (MANUAL) 2 % (19-48); METAMYELOCYTES % (MANUAL) 1 % (0-0); MONOCYTES % (MANUAL) 1 % (3.4-9.0); NEUTROPHILS % (MANUAL) 94 % (40-74); RBC MORPHOLOGY COMMENT NORMAL; SMUDGE CELLS FEW
[2020-06-13 20:24] LABS: PLATELET ESTIMATE ADEQUATE; PLATELET MORPHOLOGY COMMENT NORMAL
[2020-06-13] MEDS: ALBUMIN 25% 12.5GM 50ML 100 ML IV SCH (20:44)
--- NOTE | 2020-06-13 22:14 | NUR ---
DATE: 06/13/2020 Internal Medicine Progress Note This is coverage for Dr. Alfred Larsen. SUBJECTIVE: Mr. Hurtado was seen and examined at bedside. Patient intubated. 30/400/100/14. pk 34, mv 12, tv 400. 90% saturation. he is being proned intermittently. critical change noted, HR 120-140's since 5 pm today. Received albumin so far temp fentanyl 300, versed 10, nimbex rocuronium levophed 7.5/ fever 101.7 Tmax REVIEW OF SYSTEMS: No headaches. No rash. OBJECTIVE: VITAL SIGNS: Reviewed per the chart record. Physical exam limited, as the patient is proned and COVID[address] CXR with bilateral ARDS type picture IMPRESSION AND PLAN: 1. COVID-19 pneumonitis. --probable pathologic AFOP 2. Acute hypoxemic/hypercapneic respiratory failure, intubated 3. Diabetes. 4. Hyponatremia, better. 5. Severe hypoalbuminemia. 6. worsening tachycardia NOS 7. leucocytosis 25k, possible uncontrolled sepsis 8. slightly worse fevers NOS Maintain intubated per pulmonary Ventilator support, permissive hypercapnia and lung protective ventilation Sedation +/- paralytics as needed for lung and patient safety Treatment of lung disease per designated, supportive care Maintain slightly dry as tolerated, BP and HR may limit somewhat today Abx per ID expert. check procalcitonin level check inflammatory markers, r/o storm syndrome. give 1 empiric dose of steroids while awaiting markers Intermittent chest x-rays as needed. DVT prophylaxis. check US legs venous
[2020-06-13] MEDS ORDERED: METHYLPREDNISOLONE SOD SUCC 125 MG/2ML VIAL IV ONE (22:15)
[2020-06-13] MEDS ORDERED: LACTATED RINGER'S 500 ML IV ONE (22:15)
[2020-06-13] MEDS ORDERED: VANCOMYCIN 1GM/NS 250 ML 250 ML IV ONE (22:30)
[2020-06-13] MEDS ORDERED: LACTATED RINGER'S 1,000 ML ONE (22:48)
--- NOTE | 2020-06-13 23:46 | Progress Note ---
DATE: 06/13/2020 Internal Medicine Progress Note This is coverage for Dr. Larsen. SUBJECTIVE: The patient so far has received albumin 100 mg and persist with tachycardia. Heart rate, which is 128 bpm at bedside, but often gone in 140s easily. I have empirically increased the enoxaparin, one dose of steroids, then given a trial of IV fluid lactated Ringer's. Hopefully, this can until we have better diagnostic assessment of the main decompensation today. The patient with procalcitonin level and inflammatory markers are pending. I have sent a communication to Dr. Brayden De Dios to continue followup. One dose of vancomycin was given and consideration if Gram-negative coverage need to be restarted re-based on the progress. Of course, close clinical followup should ensue, especially for procalcitonin is negative. We need to look at immunomodulation or to rule out fungal issues noting that sputum culture already grew yeast before. For now, close followup will be given. I looked at telemetry and it was highly suggestive of sinus tachycardia. Therefore, I will postpone EKG now as the patient is prone and nursing informs me the patient significantly improved in the prone state. We will get a morning EKG. I have discussed with the team on the case now. Greater than 30 minutes in direct care and coordination on this date. MD CARA Kelly/[place] /[id number] MTDTasha
[2020-06-14] VITALS (27 sets, daily range): BP systolic 88–119; BP diastolic 42–86
[2020-06-14] MEDS: ALBUMIN 25% 12.5GM 50ML 100 ML IV SCH ×4 (02:00→21:15)
--- NOTE | 2020-06-14 03:46 | Diagnostic Imaging Report ---
EXAMINATION: CHEST SINGLE (PORTABLE) INDICATION: ET tube verification COMPARISON: Chest x-ray 06/13/2020 FINDINGS: TUBES and LINES: ET tube tip 5.2 cm above tee. Enteric tube courses into abdomen, tip out of field of view. Right upper extremity PICC tip terminates in the superior cavoatrial junction. LUNGS: Persistent extensive coarse haziness in both lungs. PLEURA: No pleural effusion or pneumothorax. HEART AND MEDIASTINUM: Unchanged BONES AND SOFT TISSUES: Unchanged UPPER ABDOMEN: No free air under the diaphragm. IMPRESSION: ET tube tip 5.2 cm above tee. Enteric tube courses into abdomen, tip out of field of view. Persistent extensive airspace and interstitial disease. Signed by: Leo Cordoba DO on 06/14/2020 3:43 AM
[2020-06-14] MEDS: FENTANYL CITRATE INJ 2,000 MCG in SODIUM CHLORIDE 0.9% 250ML 210 ML IV PRN ×3 (04:30→21:17)
[2020-06-14] MEDS: SODIUM CHLORIDE 0.9% 250ML IRRIG IR SCH ×6 (04:30→23:27)
[2020-06-14] MEDS: MIDAZOLAM HCL 5MG/ML 10ML VIAL 100 ML IV PRN ×3 (04:31→17:41)
[2020-06-14 04:37] LABS: BASOPHILS # (AUTO) 0.1 (0.0-0.1); BASOPHILS % 0.3 % (0.0-1.0); LYMPHOCYTES # (AUTO) 0.9 (1.0-3.2); LYMPHOCYTES % 3.6 % (18.0-39.1); MEAN CORPUSCULAR HEMOGLOBIN 31.8 pg (28-32); MEAN CORPUSCULAR HGB CONC 33.3 g/dL (31-35); MEAN CORPUSCULAR VOLUME 95.4 fL (81-99); MONOCYTES # (AUTO) 0.4 (0.2-0.8); MONOCYTES % 1.5 % (4.4-11.3); NEUTROPHILS # (AUTO) 23.9 (2.1-6.9); NEUTROPHILS % 92.9 % (38.7-80.0); PLATELET COUNT 210 x10e3/uL (140-360); RED BLOOD COUNT 4.09 x10e6/uL (4.3-5.7); RED CELL DISTRIBUTION WIDTH 11.9 % (11.7-14.4)
[2020-06-14 05:02] LABS: ALANINE AMINOTRANSFERASE 25 IU/L (0-55); ALBUMIN 2.8 g/dL (3.5-5.0); ALBUMIN/GLOBULIN RATIO 0.8 (0.8-2.0); ALKALINE PHOSPHATASE 81 IU/L (40-150); ANION GAP 15.2 mmol/L (8-16); BLOOD UREA NITROGEN 15 mg/dL (7-26); BUN/CREATININE RATIO 23 (6-25); CALCIUM 8.3 mg/dL (8.4-10.2); CARBON DIOXIDE 33 mmol/L (22-29); CHLORIDE 93 mmol/L (98-107); CREATININE, SERUM 0.64 mg/dL (0.72-1.25); EST GLOMERULAR FILTRATION RATE > 60 ML/MIN (60-); GLUCOSE 271 mg/dL (74-118); POTASSIUM 5.2 mmol/L (3.5-5.1); SODIUM 136 mmol/L (136-145)
[2020-06-14 05:23] LABS: LACTATE DEHYDROGENASE 275 IU/L (125-220)
[2020-06-14 05:38] LABS: FREE THYROXINE INDEX 1.4007 (1.4-3.8); THYROID STIMULATING HORMONE 0.301 uIU/mL (0.350-4.940)
[2020-06-14 05:40] LABS: FERRITIN > 2000.00 ng/mL (21.81-274.66)
[2020-06-14] MEDS: INSULIN LISPRO 100 UNIT/1 ML 3ML VIAL SQ SCH ×4 (06:50→23:40)
[2020-06-14] MEDS: CHOLECALCIFEROL 1,000 UNIT TAB PO SCH (08:12)
[2020-06-14] MEDS: ENOXAPARIN INJ 80 MG/0.8 ML SYR SC SCH ×2 (08:12→20:37)
[2020-06-14] MEDS: ASCORBIC ACID 500 MG TAB PO SCH ×2 (08:12→20:37)
[2020-06-14] MEDS: ZINC SULFATE 220 MG CAP PO SCH (08:12)
[2020-06-14] MEDS: ROCURONIUM BROMIDE 1,250 MG in SODIUM CHLORIDE 0.9% 250ML 125 ML IV SCH ×2 (08:26→21:45)
--- NOTE | 2020-06-14 08:32 | NUR ---
infectious disease progress note Patient was seen and examined chart reviewed the events noted Patient was given 1 dose of steroid yesterday Patient remains on a ventilator intubated and sedated SUBJECTIVE: The patient is currently afebrile. He remains in the prone position. He is currently on a PRVC mode of ventilation at a rate of 30 with a tidal volume of 400. His FiO2 is set at 90% and his PEEP is set at 12. PHYSICAL EXAMINATION: VITAL SIGNS: The patient is afebrile. The blood pressure is 102/60 and saturation is 94%. HEENT: Shows no facial swelling or erythema. LYMPHATIC: Shows no submandibular, cervical, or supraclavicular adenopathy. CARDIAC: Reveals regular rate and rhythm with normal S1 and S2. LUNGS: Auscultation of lungs reveals crackles at the bases. There is no wheezing. ABDOMEN: Soft and nontender. There is no rebound or guarding. EXTREMITIES: Shows no leg edema or calf tenderness. There is no cyanosis or clubbing. SKIN: Shows no rashes. NEUROLOGICAL: Shows no focal abnormalities. LABORATORY DATA: An albumin is 1.8. The BUN to creatinine ratio is normal. The other electrolytes are within normal limits. The white blood cell count is 16.4 and the hemoglobin is 13.4. The platelet count is 191. Blood gases; 7.38, 66, 70, and 39. IMPRESSION: 1. Acute respiratory failure. 2. Viral pneumonia and COVID-19 infection. 3. Diabetes. 4. Anemia. 5. Hypoalbuminemia. leukocytosis could be due to steroid Recommend to continue with supportive care as ordered Sputum cultures if spiked fever patient seems to be worse today he is in hypotensive he also had a pneumothorax is currently hypoxemic discussed with the medical team discussed with the critical care called the family had a very long discussion with them told him about the condition answered all the questions they are aware of how sick he is time spent on the phone with the family and seeing the patient more than 1 hour I did 2 phone calls We will follow
--- NOTE | 2020-06-14 08:57 | Progress Note ---
DATE: Pulmonary Critical Care Progress Note SUBJECTIVE: The patient is remaining in the prone position. He received some albumin followed by 500 mL of lactate yesterday for tachycardia. He is currently on mechanical ventilation with a PRVC mode of ventilation at a rate of 30 with a tidal volume of 400, FiO2 of 100% and PEEP of 14. His plateau pressures are 27-28. OBJECTIVE: VITAL SIGNS: Blood pressure is 97/52, pulse is now 90-100 and he is afebrile. His saturations are 93-94% on the above settings. HEENT: Shows no facial swelling or erythema. There is an oral endotracheal tube. The patient has a PICC line as well as a radial line. CARDIAC: Reveals regular rate and rhythm. Normal S1, S2. LUNGS: Auscultation of lungs reveals crackles at the bases. There is no wheezing. ABDOMEN: Soft, nontender. There is no rebound or guarding. EXTREMITIES: Shows no leg edema or calf tenderness. There is no cyanosis or clubbing. SKIN: Shows no rashes. NEUROLOGICAL: Shows no focal abnormalities. The patient is currently sedated on rocuronium as well as Versed and fentanyl. LABORATORY DATA: White blood cell count is 25 and 0.8 and hemoglobin is 13. The platelet count is 210,000. The BUN to creatinine ratio is 15 to 0.64 and the potassium is 5.2. Albumin is 2.8. The BUN to creatinine ratio is normal. ASSESSMENT: 1. Acute respiratory failure. 2. Viral pneumonia and coronavirus disease-19 infection. 3. Leukocytosis, possibly representing secondary bacterial pneumonia. 4. Diabetes. 5. Anemia. 6. Hypoalbuminemia. PLAN: 1. Continue to ventilate the patient in the prone position. 2. Continue current PRVC mode of ventilation and monitor ABG. 3. Continue to monitor controlled blood sugars. 4. Continue Lovenox. 5. Complete dexamethasone. 6. The patient has been restarted on Merrem and vancomycin for possible secondary bacterial infection. Sputum and blood cultures are pending. 7. Continue fentanyl and Versed. 8. Wean rocuronium. 9. Greater than 35 minutes in direct critical care time. Brayden De Dios MD [facility] /[id number]
[2020-06-14] MEDS: MEROPENEM 1GM 100 ML IV SCH ×2 (09:45→17:40)
[2020-06-14 11:19] LABS: ABG HCO3 38 mmol/L (22-26); ABG PCO2 73 mmHg (35-45); ABG PH 7.32 (7.35-7.45); ABG PO2 77 mmHg (80-105); ABG TCO2 40
[2020-06-14] MEDS ORDERED: ALBUMIN 25% 25GM 100ML 0.25 GM/ML BTL IV SCH ×2 (12:00)
--- NOTE | 2020-06-14 12:05 | Diagnostic Imaging Report ---
EXAMINATION: CHEST SINGLE (PORTABLE) INDICATION: Respiratory failure COMPARISON: Chest radiograph of 06/13/2020 FINDINGS: LINES/TUBES:Support lines and tubes unchanged. LUNGS:The lungs are moderately inflated. Diffuse bilateral airspace opacities. PLEURA:Circumferential right pneumothorax measures up to 2.1 cm. MEDIASTINUM:The cardiomediastinal silhouette appears unchanged in size and shape. BONES/SOFT TISSUES:No acute osseous injury. ABDOMEN:No free air under the diaphragm. Residual oral contrast material in the colon. IMPRESSION: Interval development of right pneumothorax measuring up to 2 cm. Unchanged bilateral diffuse airspace opacities. The above findings were discussed with Ely MOREJON on 06/14/2020 11:55 AM, who responded indicating that the communication was understood. Signed by: Evi Davis MD on 06/14/2020 12:02 PM
--- NOTE | 2020-06-14 12:56 | NUR ---
Internal Medicine Progress Note This is coverage for Dr. Alfred Larsen. DATE: 06/14/2020 SUBJECTIVE: Mr. Hurtado was seen and examined at bedside. Patient intubated. 30/400/100/14. he is being proned intermittently. patient with improvement. HR now in 70-80's s/p fluid/albumin, other interventions fentanyl 200, versed 8 levophed 7.5/ REVIEW OF SYSTEMS: No headaches. No rash. OBJECTIVE: VITAL SIGNS: Reviewed per the chart record. Physical exam limited, as the patient is proned and COVID[address] CXR with bilateral ARDS type picture last night IMPRESSION AND PLAN: 1. Primary COVID-19 pneumonitis on admit --secondary ARDS (Rx similar to ARDS) --probable pathologic AFOP --r/o other associated secondary immunologic syndromes 2. Acute hypoxemic/hypercapneic respiratory failure, intubated 3. Diabetes. 4. Severe hypoalbuminemia. 6. worsening tachycardia NOS 7. leucocytosis 25k, possible uncontrolled sepsis 8. slightly worse fevers NOS, ?trend 9. mild hyperkalemia 10. Syndrome of sinus tachycardia 140s NOS 06/13/20. under investigation by specialists. ?hypovolemia ?secondary immunologic syndrome ?sepsis ?other Maintain intubated per pulmonary Ventilator support, permissive hypercapnia and lung protective ventilation Sedation +/- paralytics as needed for lung and patient safety Treatment of lung disease per designated, supportive care Maintain slightly dry as tolerated Abx per ID expert. f/u procalcitonin level Tachycardia better, follow closely. Etiology under investigation per specialists. Intermittent chest x-rays as needed. DVT prophylaxis. Follow US legs venous. On full anticoagulation with high D-dimer and high risk of
--- NOTE | 2020-06-14 15:51 | NUR ---
1500: Pt put in supine position, immediately dropped O2 sat to 84%. Emergency chest tube placement by Dr. De Dios at bedside for worsened R sided pneumothorax. Placement successful, chest tube attached to [facility] and -20 wall suction. 75ml serosanguinous fluid output in [facility]. 1530: Stat CXR to check for worsening or left sided pneumo, and to check ET tube placement. no significant changes. Pt immediately put back in prone position post-CXR. 1550: Pt in prone position, O2 sat at 85% on FiO2 100%. Sedation and paralytic rates increased. Dr. De Dios aware of sat. Will not intervene at this time and continue to monitor patient for decrease in O2 sat.
--- NOTE | 2020-06-14 16:05 | Diagnostic Imaging Report ---
EXAMINATION: CHEST XRAY POST PROCEDURE INDICATION: Chest tube placement COMPARISON: Chest radiograph of earlier the same day FINDINGS: LINES/TUBES:Interval placement of left chest tube with tip overlying the medial right thorax. Remaining support lines and tubes unchanged. LUNGS:Lungs are moderately inflated. Unchanged bilateral diffuse interstitial and airspace opacities. PLEURA:Interval decrease in size of right pneumothorax, now measuring up to 1.5 cm. No left pneumothorax. MEDIASTINUM:The cardiomediastinal silhouette appears unchanged in size and shape. BONES/SOFT TISSUES:No acute osseous injury. ABDOMEN:No free air under the diaphragm. IMPRESSION: Interval decrease in size of right pneumothorax status post right chest tube placement. Pneumothorax now measures up to 1.5 cm diameter. Otherwise, no significant interval change. Signed by: Evi Davis MD on 06/14/2020 4:02 PM
--- NOTE | 2020-06-14 16:49 | Operative Report ---
DATE OF PROCEDURE: SURGEON: Brayden De Dios MD PROCEDURE: Surgical chest tube placement. PREOPERATIVE DIAGNOSIS: Right-sided pneumothorax while on ventilator. POSTOPERATIVE DIAGNOSIS: Right-sided pneumothorax while on ventilator. CONSENT: Consent was deemed emergent due to desaturations and respiratory compromise. MEDICATIONS: A 1% lidocaine for local anesthesia. The patient was also on Versed and fentanyl at the time of the procedure. DESCRIPTION OF PROCEDURE: The right lateral thorax was prepped sterilely with chlorhexidine. The area was 6 intercostal space in the midaxillary line was anesthetized with 1% lidocaine. A 3 cm incision was made with a #10 blade. Hemostats were used to dissect down to the parietal pleura. Shahla forceps were then used to enter the pleural space. There was a significant air leak. There was some pleural fluid. A 20-Somali chest tube was placed through the 6th intercostal space. There was good respiratory variation and the air leak. COMPLICATIONS: None. ESTIMATED BLOOD LOSS: None. Brayden De Dios MD [facility] /[id number]
[2020-06-14] MEDS ORDERED: NOREPINEPHRINE 8 MG/D5W 250 ML 250 ML IV PRN (17:00)
--- NOTE | 2020-06-14 18:16 | Diagnostic Imaging Report ---
Examination: Single AP view of the chest. COMPARISON: Post procedure chest x-ray 06/14/2020, portable chest 04/14/2020 INDICATION: Rule out pneumothorax IMPRESSION: 1. Lines and Tubes: Stable right-sided chest, enteric and endotracheal tubes. 2. No interval change in diffuse bilateral interstitial and alveolar opacities. A right lateral pneumothorax is again noted, with maximal air gap of approximately 1.3 cm. 3. Cardiac silhouette is obscured. Pulmonary vasculature is obscured. 4. No acute bony abnormalities. Signed by: Dr. Stephen Soares M.D. on 06/14/2020 6:13 PM
[2020-06-14] MEDS ORDERED: VANCOMYCIN 1GM/NS 250 ML 250 ML IV ONE (18:50)
[2020-06-14 19:41] LABS: ABG PCO2 67 mmHg (35-45); ABG PH 7.36 (7.35-7.45); ABG PO2 51 mmHg (80-105)
[2020-06-14 19:42] LABS: ABG HCO3 39 mmol/L (22-26); ABG TCO2 41
--- NOTE | 2020-06-14 19:56 | Consultation ---
DATE OF CONSULTATION: 06/14/2020 REASON FOR CONSULT: Pneumothorax, COVID-19, respiratory insufficiency; requested by Dr. Verenice De Dios. HISTORY OF PRESENT ILLNESS: This is a 55-year-old male with history of diabetes mellitus, who has been in the hospital for several weeks, being cared for with COVID-19. He is intubated in the prone position. Today, he developed a pneumothorax. A chest tube was inserted. The lung is reinflated. There is a small air leak. Consultation is for chest tube care and respiratory problem. PAST MEDICAL HISTORY: Positive for positive for diabetes and dyspnea. MEDICATIONS: Include Rocephin, azithromycin, dexamethasone, Lovenox. Other medications as per MAR. ALLERGIES: NONE KNOWN. FAMILY HISTORY: Negative for early coronary artery disease or respiratory problems. SOCIAL HISTORY: Negative for smoking, alcohol, or IV drugs. REVIEW OF SYSTEMS: Unobtainable because the patient is intubated in the ICU. PHYSICAL EXAMINATION: GENERAL: Overweight man in the prone position in the ICU. VITAL SIGNS: Blood pressure 130/75, pulse 95 and regular. Respirations: Intubated on FiO2 of 90%. HEENT: Mucous membranes moist. NECK: Supple, nontender. CHEST: Coarse ventilator sounds bilaterally. Chest tube is in place. There is a small air leak. CARDIAC: Regular rate and rhythm. No murmur. BACK: No CVA tenderness. No muscular spasm. EXTREMITIES: No cyanosis, clubbing, or edema. VASCULAR: Carotids 2+/2+ bilaterally. Radials 2+/2+ bilaterally. SKIN: No rashes or nonhealing ulcers. MUSCULOSKELETAL: Range of motion in all joints. No joint swelling. NEUROLOGIC: Intubated and sedated. LABORATORY DATA: Chest x-ray is reviewed. Lung has re-expanded. COVID-19 lung appearance. White count 25.7, hemoglobin 13.0, hematocrit 39.0, and platelet count 210,000. D-dimer 5.51. Sodium 136, potassium 5.2, BUN 15, creatinine 0.64. IMPRESSION: Respiratory insufficiency in a critically ill patient with coronavirus disease 2019. The patient had pneumothorax. Chest tube has been inserted appropriately and there is a small air leak. The lung is fully expanded by x-ray. I agree with the management. We will follow. Jonn MD JOSE LUIS Arguelles/[place] /[id number]
[2020-06-15] VITALS (35 sets, daily range): BP systolic 99–113; BP diastolic 49–60
[2020-06-15] MEDS: MEROPENEM 1GM 100 ML IV SCH ×3 (01:00→17:58)
[2020-06-15] MEDS: SODIUM CHLORIDE 0.9% 250ML IRRIG IR SCH ×6 (03:00→22:28)
[2020-06-15 05:21] LABS: BASOPHILS % 0.1 % (0.0-1.0); HEMATOCRIT 30.8 % (38.2-49.6); HEMOGLOBIN 10.2 g/dL (14.0-18.0); LYMPHOCYTES # (AUTO) 1.1 (1.0-3.2); LYMPHOCYTES % 10.6 % (18.0-39.1); MEAN CORPUSCULAR HGB CONC 33.1 g/dL (31-35); MEAN CORPUSCULAR VOLUME 96.6 fL (81-99); MONOCYTES # (AUTO) 0.6 (0.2-0.8); MONOCYTES % 5.8 % (4.4-11.3); NEUTROPHILS # (AUTO) 8.5 (2.1-6.9); NEUTROPHILS % 82.5 % (38.7-80.0); PLATELET COUNT 127 x10e3/uL (140-360); RED BLOOD COUNT 3.19 x10e6/uL (4.3-5.7)
[2020-06-15 05:40] LABS: ALANINE AMINOTRANSFERASE 19 IU/L (0-55); ALBUMIN/GLOBULIN RATIO 1.1 (0.8-2.0); ALKALINE PHOSPHATASE 57 IU/L (40-150); ANION GAP 9.3 mmol/L (8-16); BLOOD UREA NITROGEN 17 mg/dL (7-26); BUN/CREATININE RATIO 31 (6-25); CALCIUM 8.2 mg/dL (8.4-10.2); CARBON DIOXIDE 37 mmol/L (22-29); CHLORIDE 96 mmol/L (98-107); CREATININE, SERUM 0.54 mg/dL (0.72-1.25); EST GLOMERULAR FILTRATION RATE > 60 ML/MIN (60-); GLUCOSE 187 mg/dL (74-118); POTASSIUM 4.3 mmol/L (3.5-5.1); SODIUM 138 mmol/L (136-145)
[2020-06-15] MEDS: INSULIN LISPRO 100 UNIT/1 ML 3ML VIAL SQ SCH ×3 (06:00→17:59)
--- NOTE | 2020-06-15 08:18 | Progress Note ---
DATE: Pulmonary Critical Care Progress Note SUBJECTIVE: The patient had low oxygen saturations in the mid 80s during the night. He is now in the prone position. He is on a PRVC mode of ventilation, rate of 30 with a tidal volume of 400 and a PEEP of 14. Saturation is 90% and he is on 100% FiO2. PHYSICAL EXAMINATION: VITAL SIGNS: The patient is afebrile. The blood pressure is 110/60 and pulse is 65. HEENT: Shows no facial swelling or erythema. There is an oral endotracheal tube. LYMPHATIC: Shows no submandibular, cervical, or supraclavicular adenopathy. CARDIAC: Reveals regular rate and rhythm. Normal S1, S2. LUNGS: Auscultation of lungs reveals crackles at the bases. There is no wheezing. ABDOMEN: Soft and nontender. There is no rebound or guarding. EXTREMITIES: Shows no leg edema or calf tenderness. There is no cyanosis or clubbing. SKIN: Shows no rashes. NEUROLOGICAL: Shows no focal abnormalities. LABORATORY DATA: White blood cell count is 10.2 and hemoglobin is 10.2. The platelet count is 127. The BUN to creatinine ratio is normal. The other electrolytes are within normal limits. The albumin is 3. RADIOGRAPHIC DATA: Chest x-ray shows some persistent right pneumothorax at the bases, but the size is decreased. IMPRESSION: 1. Acute respiratory failure. 2. COVID-19 and viral pneumonia. 3. Right-sided pneumothorax with chest tube. 4. Diabetes. 5. Anemia, unspecified. 6. Thrombocytopenia. PLAN: 1. Continue to ventilate the patient in prone position and repeat ABG. 2. Continue meropenem and vancomycin and await culture results. 3. Continue Lovenox. 4. Continue to monitor and control blood sugars. 5. Complete dexamethasone. 6. Continue fentanyl and Versed as well as rocuronium. 7. Case discussed with nursing staff during congregational care pastor, nursing staff during day shift, Respiratory, Internal Medicine, Infectious Disease, and Thoracic Surgery. Greater than 35 minutes in direct critical care time. Brayden De Dios MD [facility]/[place]URIL[place]OL /[id number]
--- NOTE | 2020-06-15 08:41 | Diagnostic Imaging Report ---
TECHNIQUE: 1. Frontal view of the chest. 2. Frontal view of the abdomen. INDICATION: ^WORSENING HYPOXIA ^[id number] ^0745 COMPARISON: Prior day. DISCUSSION: Limited evaluation due to portable technique. Lines and hardware: Enteric tube is seen coursing inferiorly with tip and sidehole projecting over the left upper quadrant in expected region of the gastric body. Endotracheal tube and right chest tube are stable. Overlying EKG leads are noted. Right PICC is stable. Heart and mediastinum: Stable. Lungs and pleura: Stable diffuse bilateral interstitial and airspace ill-defined opacities. Negative for large effusion. Previously identified right inferior lateral pneumothorax is not as well-visualized however there is a small residual pneumothorax. Soft tissues and bones: No acute abnormality. Abdomen: Partially visualized upper abdomen demonstrates contrast within the transverse colon. IMPRESSION: 1. Nasogastric tube is identified with tip and sidehole projecting in the left upper quadrant in the expected region of the gastric body. 2. Stable other support structures. 3. Stable diffuse interstitial airspace opacities. Probable stable small residual right lateral pneumothorax inferiorly. Signed by: Jenaro Dillon MD on 06/15/2020 8:38 AM
--- NOTE | 2020-06-15 10:15 | NUR ---
Cost Consultant called pt's daughter, Odessa, ([phone]) to offer emotional/spiritual support. No answer. Will continue to try as able. ZAINAB Calzada Spiritual Care Department O: [phone]
[2020-06-15] MEDS: CHOLECALCIFEROL 1,000 UNIT TAB PO SCH (10:41)
[2020-06-15] MEDS: ENOXAPARIN INJ 80 MG/0.8 ML SYR SC SCH ×2 (10:41→20:06)
[2020-06-15] MEDS: ASCORBIC ACID 500 MG TAB PO SCH ×2 (10:41→20:06)
[2020-06-15] MEDS: MIDAZOLAM HCL 5MG/ML 10ML VIAL 100 ML IV PRN ×3 (10:41→21:34)
[2020-06-15] MEDS: ZINC SULFATE 220 MG CAP PO SCH (10:41)
--- NOTE | 2020-06-15 11:18 | NUR ---
Pt's daughter, Odessa, returned call. Pt's daughter states she is "worried" about her dad and has been praying for him. Pt's daughter states she is "hoping for a miracle." Journal Clerk provided empathic listening and prayer. Provided information on how to reach private duty nurse, if needed. ZAINAB Gibbslain Spiritual Care Department O: [phone]
[2020-06-15] MEDS: FENTANYL CITRATE INJ 2,000 MCG in SODIUM CHLORIDE 0.9% 250ML 210 ML IV PRN ×2 (11:43→18:02)
[2020-06-15 12:57] LABS: ABG PCO2 63 mmHg (35-45); ABG PH 7.37 (7.35-7.45); ABG PO2 60 mmHg (80-105)
[2020-06-15 12:58] LABS: ABG HCO3 37 mmol/L (22-26); ABG TCO2 39
--- NOTE | 2020-06-15 13:25 | NUR ---
Internal Medicine Progress Note This is coverage for Dr. Alfred Larsen. DATE: 06/15/2020 SUBJECTIVE: Mr. Hurtado was seen and examined at bedside. Patient intubated. 30/400/100/14. saturation better 100% today rr 32, mv 11.5, pk 31. complicating chest tube yesterday for pneumothorax levophed 2, verse 10, fentanyl 300. tube feeds 10, dex 30 q4hrs he is being proned intermittently. REVIEW OF SYSTEMS: No headaches. No rash. OBJECTIVE: VITAL SIGNS: Reviewed per the chart record. Physical exam limited, as the patient is proned and COVID19 [address] CXR with bilateral ARDS type picture last night IMPRESSION AND PLAN: 1. 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 Per critical care expert. 2. Acute hypoxemic/hypercapneic respiratory failure, intubated 3. Diabetes. 4. Severe hypoalbuminemia. 5. worsening tachycardia NOS 6. mild hyperkalemia 7. Syndrome of sinus tachycardia 140s NOS 06/13/20. under investigation by specialists. ?hypovolemia ?secondary immunologic syndrome ?sepsis ?other Maintain intubated per pulmonary Ventilator support, permissive hypercapnia and lung protective ventilation Sedation +/- paralytics as needed for lung and patient safety Treatment of lung disease per designated, supportive care Maintain slightly dry as tolerated Abx per ID expert. f/u procalcitonin level Intermittent chest x-rays as needed. DVT prophylaxis. Follow US legs venous. On full anticoagulation with high D-dimer and high risk of . Can decrease in the future as risk decreases.
--- NOTE | 2020-06-15 14:11 | NUR ---
infectious disease progress note Patient seen and examined chart reviewed The patient remains in the intensive care unit hypotensive hypoxic seems a little better than last night but still extremely sick. Discussed with all the medical team. notes reviewed. on ventilators vent setting as follow The patient had low oxygen saturations in the mid 80s during the night. He is now in the prone position. He is on a PRVC mode of ventilation, rate of 30 with a tidal volume of 400 and a PEEP of 14. Saturation is 90% and he is on 100% FiO2. PHYSICAL EXAMINATION: VITAL SIGNS: The patient is afebrile. The blood pressure is 110/60 and pulse is 65. HEENT: Shows no facial swelling or erythema. There is an oral endotracheal tube. LYMPHATIC: Shows no submandibular, cervical, or supraclavicular adenopathy. CARDIAC: Reveals regular rate and rhythm. Normal S1, S2. LUNGS: Auscultation of lungs reveals crackles at the bases. There is no wheezing. ABDOMEN: Soft and nontender. There is no rebound or guarding. EXTREMITIES: Shows no leg edema or calf tenderness. There is no cyanosis or clubbing. SKIN: Shows no rashes. NEUROLOGICAL: Shows no focal abnormalities. LABORATORY DATA: White blood cell count is 10.2 and hemoglobin is 10.2. The platelet count is 127. The BUN to creatinine ratio is normal. The other electrolytes are within normal limits. The albumin is 3. RADIOGRAPHIC DATA: Chest x-ray shows some persistent right pneumothorax at the bases, but the size is decreased. IMPRESSION: 1. Acute respiratory failure. 2. COVID-19 and viral pneumonia. 3. Right-sided pneumothorax with chest tube. 4. Diabetes. 5. Anemia, unspecified. 6. Thrombocytopenia. aspiration pneumonia Continue antibiotic as ordered Continue supportive care Patient is too unstable to have any procedure done the patient remains extremely ill in the intensive care unit on maximum vent and vasopressors will follow
--- NOTE | 2020-06-15 16:25 | NUR ---
Nutrition Intervention Note RD Recommendation(s) for Physician: -Recommend modifying TF to Vital AF 1.2 @ goal rate of 60 mL/hr (provides 1728 kcal, 108 g protein). -Fluid management per MD. -Bowel regimen per MD- no BM recorded, consider prokinetic agent. -TF not meeting needs x 7 days, if unable to advance to goal rate in 24-48 hrs recommend TPN. Standard TPN at 42 ml/hr of (D30W/500ml), (AA10%/500ml), Lipids 25 g/day, standard lytes per current lab trend, MVI, trace, thiamine. -If TPN initiated, recommend checking Phos and Mg with BMP. Replace low lytes as needed. Plan of Care: RD following, monitoring for tolerance and adequacy, TF and TPN rec's Nutrition reason for involvement: follow up RD Assessment 06/15: Follow up. Pt remains intubated, sedated, and paralyzed. Pt requiring intermittent proning. TF of Glucerna 1.2 infusing at 10 ml/hr- pt tolerating trickle feeds, however not meeting needs. Pt with no documented BM since initiation of TF, no flatus and hypoactive BS currently. RD to manage TF order per Dr. De Dios. TPN rec's provided pending inability to advance TF to goal rate. 06/10: Early follow up due to initiation of enteral nutrition. Pt is now intubated and tube feed order was placed yesterday per chart. Tube feed recommendations provided. Will continue to monitor (06/06/20) Chart reviewed. Labs and meds reviewed. RD received consult for nutrition assessment. Pt is a 55 year old male admitted with acute respiratory distress and COVID-19. Pt is in the COVID ICU and RD is unable to enter room due to isolation precautions. RD called pt's nurse over the phone. RN stated pt is eating well and is consuming >50% of meals. Speech therapy evaluated pt and recommended a nectar thick liquid diet at this time and a modified barium swallow study be performed to rule out aspiration. Will continue to monitor Principal Problems/Diagnoses: acute respiratory distress, COVID-19 PMH: Diabetes. I/O: 2390/1305 GI: no flatus, hypoactive BS, no BM recorded; + NGT Skin: suspected DTI L cheek Labs: 8/19: Na 138, K 4.3, BUN 17, Cr 0.54, Gluc 187, POC Gluc 184-204 06/14: CRP 96 (06/10) Na 133, K 4.4, BUN 15, Cr 0.67, Glu 295, Ca 7.7 Meds: vitamin C, lispro, zinc sulfate, abx IVF/Drips: Fentanyl, Rocuronium, Versed Ht: 70 in Wt: 171 lbs (06/15) 172 lbs(06/09) 170 lb (06/06) BMI: 24.4 kg/m2 using wt of 170 lbs IBW:166 lb Malnutrition Evaluation (06/15/20) Unable to fully assess due to isolation precautions. Will re-evaluate at follow-up as appropriate. Intake adequacy: Acute moderate- TF not meeting <50% of estimated needs x 7 days Wt loss: None- no wt loss x 1 week since admit Fat loss: DEMETRIO 2/2 COVID ICU isolation precautions Muscle loss: DEMETRIO 2/2 COVID ICU isolation precautions Edema: Moderate, +2 edema documented Functional status: DEMETRIO, pt intubated and sedated in [facility] Nutrition Prescription (Diet Order): Glucerna 1.2 @ 30 mL/hr, infusing at 10 ml/hr- 288 kcal and 14 gm protein Estimated Nutritional Needs: 1241-8469 calories/day (20-25 kcal/kg CBW) 93-155 g protein/day (1.2-2 g pro/kg CBW) Diet Adequacy: Not meeting calorie needs, Not meeting protein needs Tolerance: Tolerating TF- trickle feeds Diet Education Needs Assessment: Diet education not indicated, pt is intubated Nutrition Care Level: high- not meeting needs Nutrition Diagnosis: Inadequate oral intake related to acute respiratory failure/mechanical ventilation as evidenced by need for enteral nutrition. Goal: Patient will meet 75-100% of estimated needs by follow up Progress: goal not met Interventions: -Composition, Rate, Route, Recommended Modifications Monitoring/Evaluation: -Total energy intake, Total protein intake, Formula/Solution, Weight change Signed: Mirtha Ross RD, LD, [facility]
[2020-06-15] MEDS ORDERED: ENOXAPARIN SOD INJ 40 MG/0.4 ML SYR SC SCH (17:00)
[2020-06-15 18:08] LABS: ABG HCO3 39 mmol/L (22-26); ABG PCO2 67 mmHg (35-45); ABG PH 7.38 (7.35-7.45); ABG PO2 75 mmHg (80-105); ABG TCO2 41
--- NOTE | 2020-06-15 19:00 | NUR ---
Bedside report received at this time. Instructions to keep pt prone received. [place] to gravity. Right pleura chest tube noted. Versed/fentanyl/rocuronium infusing. ETT 8/26cm at the lip. Refer to coach operator for further details as needed.
--- NOTE | 2020-06-15 19:36 | NUR ---
Pt to remain prone per shift change report. Addendum: 06/15/20 at 1936 by Raya Landon RN Amended: Links added.
[2020-06-15] MEDS: ROCURONIUM BROMIDE 1,250 MG in SODIUM CHLORIDE 0.9% 250ML 125 ML IV SCH (20:30)
[2020-06-15] MEDS ORDERED: SODIUM CHLORIDE 0.9% 250ML 250 ML ONE (20:51)
--- NOTE | 2020-06-15 22:29 | NUR ---
LNGT tape loose so it was replaced at this time with skin barrier and tegaderm.
--- NOTE | 2020-06-15 23:00 | NUR ---
Reassessment completed, refer to records management specialist as needed.
[2020-06-16] VITALS (34 sets, daily range): BP systolic 89–165; BP diastolic 48–99
--- NOTE | 2020-06-16 | NUR ---
FSBS 123, no insulin s/s coverage needed at this time per md s/s orders which start at 150.
[2020-06-16] MEDS: MEROPENEM 1GM 100 ML IV SCH ×3 (00:11→18:24)
[2020-06-16] MEDS: ACETAMINOPHEN 325 MG TAB PO PRN (00:33)
[2020-06-16] MEDS: FENTANYL 2000MCG/NS 250 250 ML IV PRN ×3 (01:47→22:16)
[2020-06-16] MEDS: MIDAZOLAM HCL 5MG/ML 10ML VIAL 100 ML IV PRN ×5 (02:52→22:16)
[2020-06-16] MEDS: SODIUM CHLORIDE 0.9% 250ML IRRIG IR SCH ×6 (02:52→22:15)
[2020-06-16 05:03] LABS: BASOPHILS % 0.1 % (0.0-1.0); EOSINOPHILS # (AUTO) 0.1 (0.0-0.4); EOSINOPHILS % 0.7 % (0.0-6.0); HEMATOCRIT 34.8 % (38.2-49.6); HEMOGLOBIN 11.3 g/dL (14.0-18.0); LYMPHOCYTES # (AUTO) 1.4 (1.0-3.2); LYMPHOCYTES % 12.7 % (18.0-39.1); MEAN CORPUSCULAR HEMOGLOBIN 31.7 pg (28-32); MEAN CORPUSCULAR HGB CONC 32.5 g/dL (31-35); MEAN CORPUSCULAR VOLUME 97.5 fL (81-99); MONOCYTES # (AUTO) 0.7 (0.2-0.8); MONOCYTES % 6.1 % (4.4-11.3); NEUTROPHILS # (AUTO) 8.7 (2.1-6.9); NEUTROPHILS % 77.2 % (38.7-80.0); PLATELET COUNT 134 x10e3/uL (140-360); RED BLOOD COUNT 3.57 x10e6/uL (4.3-5.7); RED CELL DISTRIBUTION WIDTH 12.4 % (11.7-14.4)
[2020-06-16 05:22] LABS: ALANINE AMINOTRANSFERASE 20 IU/L (0-55); ALBUMIN 2.5 g/dL (3.5-5.0); ALBUMIN/GLOBULIN RATIO 0.8 (0.8-2.0); ALKALINE PHOSPHATASE 67 IU/L (40-150); ANION GAP 12.1 mmol/L (8-16); BLOOD UREA NITROGEN 18 mg/dL (7-26); BUN/CREATININE RATIO 33 (6-25); CALCIUM 7.9 mg/dL (8.4-10.2); CARBON DIOXIDE 34 mmol/L (22-29); CHLORIDE 96 mmol/L (98-107); CREATININE, SERUM 0.54 mg/dL (0.72-1.25); EST GLOMERULAR FILTRATION RATE > 60 ML/MIN (60-); GLUCOSE 175 mg/dL (74-118); POTASSIUM 4.1 mmol/L (3.5-5.1); SODIUM 138 mmol/L (136-145)
[2020-06-16] MEDS: INSULIN LISPRO 100 UNIT/1 ML 3ML VIAL SQ SCH ×4 (05:55→17:06)
--- NOTE | 2020-06-16 08:56 | Progress Note ---
DATE: SUBJECTIVE: The patient is still in the prone position. His FiO2 has been decreased to 90%. Repeat chest x-ray shows reinflation of the lung. PHYSICAL EXAMINATION: VITAL SIGNS: The blood pressure is now 90/50 with a pulse of 83, respiratory rate is 32, ventilator settings are PRVC of 32 with a tidal volume of 400 and a PEEP of 14. HEENT: Shows no facial swelling or erythema. The oropharynx is normal. There is an oral endotracheal tube. LYMPHATIC: Shows no submandibular, cervical, supraclavicular adenopathy. CARDIAC: Reveals regular rate and rhythm with normal S1, S2. LUNGS: Auscultation of lungs reveals rhonchorous breath sounds bilaterally. There is no wheezing. ABDOMEN: Soft and nontender. There is no rebound or guarding. EXTREMITIES: Shows no leg edema or calf tenderness. There is no cyanosis or clubbing. SKIN: Shows no rashes. NEUROLOGICAL: Shows no focal abnormalities. LABORATORY DATA: White blood cell count 11.2, hemoglobin 11.3, and the platelet count is 134. BUN to creatinine ratio is 18 to 0.54. The other electrolytes are within normal limits. The albumin is 2.5. IMPRESSION: 1. Acute respiratory failure. 2. COVID-19 and viral pneumonia. 3. Right-sided pneumothorax, chest tube. 4. Diabetes. 5. Anemia. 6. Thrombocytopenia. PLAN: 1. Return patient to supine position today. 2. Complete current antibiotics. 3. Albumin and Lasix scheduled for today. 4. Continue Lovenox. 5. Complete dexamethasone. 6. Continue fentanyl and Versed as well as rocuronium. Greater than 35 minutes in direct critical care time. Brayden De Dios MD [facility]/MODL /[id number]
--- NOTE | 2020-06-16 09:00 | Diagnostic Imaging Report ---
TECHNIQUE: Frontal view of the chest. INDICATION: ^resp failure ^[id number] ^0816 COMPARISON: Prior day. DISCUSSION: Limited evaluation due to portable technique. Lines and hardware: Stable endotracheal tube, enteric tube, right PICC and right chest tube. Heart and mediastinum: Stable. Lungs and pleura: There is mild interval improvement in diffuse interstitial airspace opacities with a peripheral and lower lobe predominance. Negative for large effusion or pneumothorax. Soft tissues and bones: No acute abnormality. Oral contrast is again identified within the transverse colon within the upper abdomen. IMPRESSION: 1. Stable support structures. 2. Mild interval improvement in diffuse bilateral interstitial airspace opacities. Negative for pneumothorax. Signed by: Jenaro Dillon MD on 06/16/2020 8:56 AM
[2020-06-16] MEDS: ENOXAPARIN INJ 80 MG/0.8 ML SYR SC SCH ×2 (09:02→20:09)
[2020-06-16] MEDS: CHOLECALCIFEROL 1,000 UNIT TAB PO SCH (09:02)
[2020-06-16] MEDS: ASCORBIC ACID 500 MG TAB PO SCH ×2 (09:02→20:09)
[2020-06-16] MEDS: ZINC SULFATE 220 MG CAP PO SCH (09:02)
[2020-06-16] MEDS ORDERED: FUROSEMIDE INJ 10 MG/ML 4 ML VIAL IV ONE (09:30)
[2020-06-16] MEDS: ALBUMIN 25% 25GM 100ML 100 ML IV SCH ×3 (10:13→20:09)
[2020-06-16] MEDS ORDERED: ALBUMIN 25% 25GM 100ML 0.25 GM/ML BTL IV SCH (12:00)
--- NOTE | 2020-06-16 12:27 | NUR ---
Internal Medicine Progress Note This is coverage for Dr. Alfred Larsen. DATE: 06/16/2020 SUBJECTIVE: Mr. Hurtado was seen and examined at bedside. Patient intubated. 32/400/85/14 93% saturation off pressors today versed 10, fentanyl 300. tube feeds 30, water 100 q4hrs he is being proned intermittently. REVIEW OF SYSTEMS: No headaches. No rash. OBJECTIVE: VITAL SIGNS: Reviewed per the chart record. Physical exam limited, as the patient is proned and COVID19 [address] CXR with bilateral ARDS type picture last night IMPRESSION AND PLAN: 1. 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 Acute hypoxemic/hypercapneic respiratory failure, intubated 3. Diabetes. 4. Severe hypoalbuminemia. 5. worsening tachycardia NOS 6. mild hyperkalemia 7. Syndrome of sinus tachycardia 140s NOS 06/13/20. under investigation by specialists. ?hypovolemia ?secondary immunologic syndrome ?sepsis ?other Maintain intubated per pulmonary Ventilator support, permissive hypercapnia and lung protective ventilation Sedation +/- paralytics as needed for lung and patient safety Treatment of lung disease per designated, supportive care Maintain slightly dry as tolerated Abx per ID expert. f/u procalcitonin level Intermittent chest x-rays as needed. DVT prophylaxis. On full anticoagulation with high D-dimer and high risk of . Can decrease in the future as risk decreases. Follow up venous US legs
[2020-06-16] MEDS: CISATRACURIUM BESYLATE 200 MG in SODIUM CHLORIDE 0.9% 250ML 100 ML IV PRN (14:39)
[2020-06-16] MEDS ORDERED: MAGNESIUM HYDROXIDE 30 ML UDC PO ONE (14:45)
--- NOTE | 2020-06-16 18:14 | Progress Note ---
DATE: SUBJECTIVE: Mr. Hurtado remains in intensive care unit. He remains in very critical intubation. He was seen by Dr. Zaragoza today who is covering for Dr. Alfred Larsen. The patient who is currently on meropenem which was started two days ago on . He is on Lovenox 80 mg q.12 hours. His white count is 11.2. His hemoglobin is 11.3. Sodium 138, potassium 4, and creatinine 0.54. The patient's T-max is 100.8. His cultures from the sputum showing Staph aureus. IMPRESSION: Concerned about pneumonia, concerned about aspiration. I am going to add vancomycin and Diflucan. I am concerned the patient is in the high dose anticoagulation, but we will defer to Dr. Zaragoza. The patient is currently too unstable to have CTA or CT abdomen and chest as he is at risk for PE. Prognosis is very guarded. MD MARA Sarmiento/AL /[id number]
[2020-06-16] MEDS: FLUCONAZOLE 200 MG/100 ML 100 ML IV SCH (18:24)
[2020-06-16 18:38] LABS: ABG HCO3 40 mmol/L (22-26); ABG PH 7.35 (7.35-7.45); ABG TCO2 42
[2020-06-16 18:45] LABS: ABG PCO2 72 mmHg (35-45); ABG PO2 89 mmHg (80-105)
[2020-06-16] MEDS: VANCOMYCIN 1GM/NS 250 ML 250 ML IV SCH (19:48)
[2020-06-17] VITALS (30 sets, daily range): BP systolic 94–137; BP diastolic 48–67
[2020-06-17] MEDS: MEROPENEM 1GM 100 ML IV SCH ×3 (01:22→17:03)
[2020-06-17] MEDS: SODIUM CHLORIDE 0.9% 250ML IRRIG IR SCH ×6 (03:00→22:12)
[2020-06-17] MEDS: MIDAZOLAM HCL 5MG/ML 10ML VIAL 100 ML IV PRN ×3 (05:10→20:20)
[2020-06-17 05:28] LABS: BASOPHILS % 0.2 % (0.0-1.0); EOSINOPHILS # (AUTO) 0.1 (0.0-0.4); EOSINOPHILS % 0.8 % (0.0-6.0); HEMATOCRIT 33.6 % (38.2-49.6); HEMOGLOBIN 11.1 g/dL (14.0-18.0); LYMPHOCYTES # (AUTO) 1.2 (1.0-3.2); LYMPHOCYTES % 11.7 % (18.0-39.1); MEAN CORPUSCULAR HEMOGLOBIN 32.2 pg (28-32); MEAN CORPUSCULAR VOLUME 97.4 fL (81-99); MONOCYTES # (AUTO) 0.5 (0.2-0.8); NEUTROPHILS % 79.7 % (38.7-80.0); PLATELET COUNT 140 x10e3/uL (140-360); RED BLOOD COUNT 3.45 x10e6/uL (4.3-5.7); RED CELL DISTRIBUTION WIDTH 12.7 % (11.7-14.4)
[2020-06-17 05:57] LABS: ALANINE AMINOTRANSFERASE 18 IU/L (0-55); ALBUMIN/GLOBULIN RATIO 1.1 (0.8-2.0); ALKALINE PHOSPHATASE 70 IU/L (40-150); ANION GAP 9.9 mmol/L (8-16); BLOOD UREA NITROGEN 11 mg/dL (7-26); BUN/CREATININE RATIO 20 (6-25); CARBON DIOXIDE 39 mmol/L (22-29); CHLORIDE 93 mmol/L (98-107); CREATININE, SERUM 0.54 mg/dL (0.72-1.25); EST GLOMERULAR FILTRATION RATE > 60 ML/MIN (60-); GLUCOSE 198 mg/dL (74-118); POTASSIUM 3.9 mmol/L (3.5-5.1); SODIUM 138 mmol/L (136-145)
[2020-06-17] MEDS: INSULIN LISPRO 100 UNIT/1 ML 3ML VIAL SQ SCH ×4 (06:31→18:11)
[2020-06-17] MEDS: CHOLECALCIFEROL 1,000 UNIT TAB PO SCH (08:18)
[2020-06-17] MEDS: ASCORBIC ACID 500 MG TAB PO SCH ×2 (08:18→20:13)
[2020-06-17] MEDS: ZINC SULFATE 220 MG CAP PO SCH (08:18)
[2020-06-17] MEDS: ENOXAPARIN INJ 80 MG/0.8 ML SYR SC SCH ×2 (08:19→20:13)
[2020-06-17 09:41] LABS: ABG HCO3 41 mmol/L (22-26); ABG PCO2 77 mmHg (35-45); ABG PH 7.33 (7.35-7.45); ABG PO2 66 mmHg (80-105); ABG TCO2 43
--- NOTE | 2020-06-17 12:59 | Progress Note ---
DATE: 06/17/2020 REASON FOR CONSULT: Pneumothorax, COVID-19, respiratory insufficiency; requested by Dr. Verenice De Dios. SUBJECTIVE: The patient on FiO2 100%. O2 saturation 97%. Chest tube in place. No air leak present. Critically ill. REVIEW OF SYSTEMS: Unobtainable because the patient is intubated. PHYSICAL EXAMINATION: GENERAL: Intubated and sedated in the ICU. VITAL SIGNS: Blood pressure 130/75, pulse 95 and regular. Respirations: Intubated. NECK: Supple, nontender. CARDIAC: Regular rate and rhythm. Normal S1 and S2. No rub or murmur. LUNGS: Coarse ventilator sounds bilaterally. Chest tube is in place. No visible air leak today. No subcutaneous emphysema. ABDOMEN: Hypoactive bowel sounds. No palpable masses. EXTREMITIES: No cyanosis, clubbing, or edema. IMAGING: Chest x-ray is reviewed. The chest tube is well positioned. Lung is fully expanded. IMPRESSION: Critically ill patient with respiratory insufficiency secondary to COVID. Lung is well expanded. Chest tube function appropriate. We will follow. MD JOSE LUIS Ocampo/MODL /[id number]
--- NOTE | 2020-06-17 13:09 | Progress Note ---
DATE: Pulmonary Critical Care Progress Note SUBJECTIVE: The patient remains in the prone position. He was not synchronizing with the ventilator and required an additional 20 mg of vecuronium. PHYSICAL EXAMINATION: VITAL SIGNS: The patient is afebrile. The blood pressure is 107/53 and saturation is now 99%. He is on a PRVC mode of ventilation with a tidal volume of 400 and a respiratory rate of 32. His PEEP is set at 14 and his FiO2 is set at 95%. HEENT: Shows no facial swelling or erythema. There is an oral endotracheal tube. LYMPHATIC: Shows no submandibular, cervical, or supraclavicular adenopathy. CARDIAC: Reveals regular rate and rhythm with normal S1 and S2. LUNGS: Auscultation of lungs reveals rhonchorous breath sounds bilaterally. There is no wheezing. ABDOMEN: Soft and nontender. There is no rebound or guarding. EXTREMITIES: Shows no leg edema or calf tenderness. There is no cyanosis or clubbing. SKIN: Shows no rashes. NEUROLOGICAL: Shows no focal abnormalities. LABORATORY DATA: White blood cell count is 10.7 and the hemoglobin is 11.1. The platelet count is 140. BUN to creatinine ratio is 11 to 0.54 and the other electrolytes are within normal limits. Albumin is 3. IMPRESSION: 1. Acute respiratory failure. 2. Viral pneumonia and COVID-19 infection. 3. Right-sided pneumothorax. 4. Diabetes. 5. Anemia. 6. Thrombocytopenia. PLAN: 1. Continue Lovenox. 2. Complete dexamethasone. 3. Place the patient in the supine position again later today. 4. Continue fentanyl and Versed as well as Nimbex. Greater than 35 minutes in direct critical care time. Brayden De Dios MD [facility]/MODL /[id number]
--- NOTE | 2020-06-17 13:39 | NUR ---
this is infectious disease progress note patient seen and examined chart reviewed and case was discussed with her great care. The patient has remained extremely L. On multiple drugs. The patient remains in the prone position. He was not synchronizing with the ventilator and required an additional 20 mg of vecuronium. PHYSICAL EXAMINATION: VITAL SIGNS: The patient is afebrile. The blood pressure is 107/53 and saturation is now 99%. He is on a PRVC mode of ventilation with a tidal volume of 400 and a respiratory rate of 32. His PEEP is set at 14 and his FiO2 is set at 95%. HEENT: Shows no facial swelling or erythema. There is an oral endotracheal tube. LYMPHATIC: Shows no submandibular, cervical, or supraclavicular adenopathy. CARDIAC: Reveals regular rate and rhythm with normal S1 and S2. LUNGS: Auscultation of lungs reveals rhonchorous breath sounds bilaterally. There is no wheezing. ABDOMEN: Soft and nontender. There is no rebound or guarding. EXTREMITIES: Shows no leg edema or calf tenderness. There is no cyanosis or clubbing. SKIN: Shows no rashes. NEUROLOGICAL: Shows no focal abnormalities. LABORATORY DATA: White blood cell count is 10.7 and the hemoglobin is 11.1. The platelet count is 140. BUN to creatinine ratio is 11 to 0.54 and the other electrolytes are within normal limits. Albumin is 3. IMPRESSION: 1. Acute respiratory failure. 2. Viral pneumonia and COVID-19 infection. 3. Right-sided pneumothorax. 4. Diabetes. 5. Anemia. 6. Thrombocytopenia. aspiration pneumonia On vancomycin and meropenem to treat for 7 days We will reassess clinically His prognosis is extremely poor
--- NOTE | 2020-06-17 13:40 | NUR ---
Internal Medicine Progress Note Coverage for Dr. Alfred Larsen. DATE: 06/17/2020 SUBJECTIVE: Mr. Hurtado was seen and examined at bedside. Patient intubated. 32/350/90/14 98% saturation, TV 350 cc, MV 11 L/min, rr 32 nimbex, fentanyl, versed chest tube, no air leak noted jarquin, UOP feeds 50/hr water 100 q6hrs REVIEW OF SYSTEMS: No headaches. No rash. OBJECTIVE: VITAL SIGNS: Reviewed per the chart record. Physical exam limited, as the patient is proned and COVID19 [address] CXR with bilateral ARDS type picture last night Us venous - no DVT bilaterally IMPRESSION AND PLAN: 1. 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 Acute hypoxemic/hypercapneic respiratory failure, intubated 3. Diabetes. 4. Severe hypoalbuminemia. 5. worsening tachycardia NOS 6. mild hyperkalemia 7. Syndrome of sinus tachycardia 140s NOS 06/13/20. under investigation by specialists. ?hypovolemia ?secondary immunologic syndrome ?sepsis ?other Maintain intubated per pulmonary Ventilator support, permissive hypercapnia and lung protective ventilation Sedation +/- paralytics as needed for lung and patient safety Treatment of lung disease per designated, supportive care Maintain slightly dry as tolerated Abx per ID expert. Intermittent chest x-rays as needed. DVT prophylaxis. On full anticoagulation with high D-dimer and high risk of .
[2020-06-17 15:33] LABS: ABG PCO2 89 mmHg (35-45); ABG PH 7.25 (7.35-7.45)
[2020-06-17 15:34] LABS: ABG HCO3 40 mmol/L (22-26); ABG PO2 83 mmHg (80-105); ABG TCO2 43
[2020-06-17] MEDS: FLUCONAZOLE 200 MG/100 ML 100 ML IV SCH (17:03)
[2020-06-17] MEDS: VANCOMYCIN 1GM/NS 250 ML 250 ML IV SCH (17:03)
[2020-06-17] MEDS: FENTANYL 2000MCG/NS 250 250 ML IV PRN (20:16)
[2020-06-17 22:11] LABS: ABG HCO3 46 mmol/L (22-26); ABG PCO2 78 mmHg (35-45); ABG PH 7.38 (7.35-7.45); ABG PO2 76 mmHg (80-105); ABG TCO2 48
[2020-06-18] VITALS (23 sets, daily range): BP systolic 103–145; BP diastolic 58–73
[2020-06-18] MEDS: MEROPENEM 1GM 100 ML IV SCH ×3 (00:01→16:14)
[2020-06-18] MEDS: MIDAZOLAM HCL 5MG/ML 10ML VIAL 100 ML IV PRN ×4 (01:32→17:54)
[2020-06-18] MEDS: FENTANYL 2000MCG/NS 250 250 ML IV PRN ×3 (01:33→14:39)
[2020-06-18] MEDS: SODIUM CHLORIDE 0.9% 250ML IRRIG IR SCH ×6 (01:34→19:51)
[2020-06-18 04:37] LABS: BASOPHILS % 0.2 % (0.0-1.0); EOSINOPHILS # (AUTO) 0.1 (0.0-0.4); EOSINOPHILS % 1.1 % (0.0-6.0); HEMATOCRIT 36.8 % (38.2-49.6); HEMOGLOBIN 11.8 g/dL (14.0-18.0); LYMPHOCYTES # (AUTO) 1.1 (1.0-3.2); LYMPHOCYTES % 8.5 % (18.0-39.1); MEAN CORPUSCULAR HEMOGLOBIN 31.8 pg (28-32); MEAN CORPUSCULAR HGB CONC 32.1 g/dL (31-35); MEAN CORPUSCULAR VOLUME 99.2 fL (81-99); MONOCYTES # (AUTO) 0.6 (0.2-0.8); MONOCYTES % 4.7 % (4.4-11.3); NEUTROPHILS % 83.9 % (38.7-80.0); PLATELET COUNT 141 x10e3/uL (140-360); RED BLOOD COUNT 3.71 x10e6/uL (4.3-5.7); RED CELL DISTRIBUTION WIDTH 12.9 % (11.7-14.4)
[2020-06-18 04:59] LABS: ALANINE AMINOTRANSFERASE 18 IU/L (0-55); ALBUMIN 2.6 g/dL (3.5-5.0); ALBUMIN/GLOBULIN RATIO 0.7 (0.8-2.0); ALKALINE PHOSPHATASE 77 IU/L (40-150); ANION GAP 10.8 mmol/L (8-16); BLOOD UREA NITROGEN 9 mg/dL (7-26); BUN/CREATININE RATIO 19 (6-25); CALCIUM 8.3 mg/dL (8.4-10.2); CARBON DIOXIDE 39 mmol/L (22-29); CHLORIDE 92 mmol/L (98-107); CREATININE, SERUM 0.48 mg/dL (0.72-1.25); EST GLOMERULAR FILTRATION RATE > 60 ML/MIN (60-); GLUCOSE 181 mg/dL (74-118); POTASSIUM 3.8 mmol/L (3.5-5.1); SODIUM 138 mmol/L (136-145)
[2020-06-18] MEDS: INSULIN LISPRO 100 UNIT/1 ML 3ML VIAL SQ SCH ×4 (05:12→17:08)
[2020-06-18] MEDS: CISATRACURIUM BESYLATE 200 MG in SODIUM CHLORIDE 0.9% 250ML 100 ML IV PRN ×2 (05:13→12:08)
[2020-06-18] MEDS: ZINC SULFATE 220 MG CAP PO SCH (08:26)
[2020-06-18] MEDS: ASCORBIC ACID 500 MG TAB PO SCH ×2 (08:26→19:51)
[2020-06-18] MEDS: ENOXAPARIN INJ 80 MG/0.8 ML SYR SC SCH ×2 (08:26→19:51)
[2020-06-18] MEDS: CHOLECALCIFEROL 1,000 UNIT TAB PO SCH (08:26)
[2020-06-18] MEDS ORDERED: FUROSEMIDE INJ 10 MG/ML 4 ML VIAL IV ONE (09:00)
[2020-06-18 09:14] LABS: ABG PCO2 84 mmHg (35-45); ABG PH 7.34 (7.35-7.45)
[2020-06-18 09:15] LABS: ABG HCO3 45 mmol/L (22-26); ABG PO2 74 mmHg (80-105); ABG TCO2 48
--- NOTE | 2020-06-18 09:22 | Progress Note ---
DATE: SUBJECTIVE: The patient had some tachypnea last night. Repeat chest x-ray was done, that showed no acute changes. The pneumothorax has resolved. He received some additional Diprivan and his tachypnea improved. This morning, he remains in the prone position. He is not having any headache or neck pain. He is not having fevers. PHYSICAL EXAMINATION: VITAL SIGNS: Blood pressure is 116/67 and saturation is 97%. He is on FiO2 of 90% and PEEP of 10. His tidal volume is set at 400 and his respiratory rate is set at 32. He is breathing with the ventilator. His peak airway pressure is 41 and his plateau pressure is 36. HEENT: Shows no facial swelling or erythema. LYMPHATIC: Shows no submandibular, cervical, or supraclavicular adenopathy. HEENT: There is an oral endotracheal tube. The patient has a PICC line in place as well as an arterial line. CARDIAC: Reveals regular rate and rhythm with normal S1 and S2. LUNGS: Auscultation of lungs reveals rhonchorous breath sounds bilaterally. There is no wheezing. ABDOMEN: Soft and nontender. There is no rebound or guarding. EXTREMITIES: Show no leg edema or calf tenderness. There is no cyanosis or clubbing. SKIN: Shows no rashes. NEUROLOGICAL: Shows no focal abnormalities. LABORATORY DATA: White blood cell count is 13.05, hemoglobin is 11.8, and platelet count is 141. The BUN to creatinine ratio is normal. The other electrolytes are within normal limits. Albumin is 2.6. IMPRESSION: 1. Acute respiratory failure. 2. Viral pneumonia and coronavirus disease 2019 infection. 3. Right-sided pneumothorax. 4. Diabetes. 5. Anemia. 6. Thrombocytopenia. PLAN: 1. Continue Lovenox. 2. Complete dexamethasone. 3. Place the patient in supine position. 4. Continue fentanyl and Versed as well as Nimbex. 5. Continue to monitor blood counts. 6. Consider placing chest tube to wall suction, tube to water seal. Greater than 35 minutes in direct critical care time. Brayden De Dios MD [facility]/MODL /[id number]
--- NOTE | 2020-06-18 09:28 | Diagnostic Imaging Report ---
EXAMINATION: CHEST SINGLE (PORTABLE) INDICATION: intubated pt desating COMPARISON: Chest radiograph 06/16/2020. FINDINGS: TUBES and LINES: Endotracheal tube, right arm PICC, right chest tube, and enteric tube in unchanged positions. LUNGS: Lungs are moderately inflated. Persistent bilateral interstitial and lower lung zone peripheral airspace opacities. PLEURA: No significant pleural effusion. Persistent lucency at the right lung base. New lucency along the left cardiac margin. HEART AND MEDIASTINUM: The cardiomediastinal silhouette is unremarkable. BONES AND SOFT TISSUES: No acute osseous lesion. Interval development of subcutaneous emphysema in the right upper lateral chest and neck. UPPER ABDOMEN: No free air under the diaphragm. IMPRESSION: New lucency along the left cardiac margin may represent small medial pneumothorax versus pneumomediastinum. Right chest tube in place. Unchanged small right basilar pneumothorax. Interval development of subcutaneous emphysema in the right upper lateral chest and neck. Persistent findings of multifocal pneumonia. The above findings were discussed with JEAN-PIERRE Ruth on 06-18-2020 at 9:23 AM. Signed by: Dr. Amrit Mahajan MD on 06/18/2020 9:24 AM
[2020-06-18] MEDS: ALBUMIN 25% 12.5GM 50ML 100 ML IV SCH ×2 (09:38→15:07)
--- NOTE | 2020-06-18 10:10 | NUR ---
infectious disease progress note June 18, 2020 Patient seen and examined chart reviewed PHYSICAL EXAMINATION: VITAL SIGNS: Blood pressure is 116/67 and saturation is 97%. He is on FiO2 of 90% and PEEP of 10. His tidal volume is set at 400 and his respiratory rate is set at 32. He is breathing with the ventilator. His peak airway pressure is 41 and his plateau pressure is 36. HEENT: Shows no facial swelling or erythema. LYMPHATIC: Shows no submandibular, cervical, or supraclavicular adenopathy. HEENT: There is an oral endotracheal tube. The patient has a PICC line in place as well as an arterial line. CARDIAC: Reveals regular rate and rhythm with normal S1 and S2. LUNGS: Auscultation of lungs reveals rhonchorous breath sounds bilaterally. There is no wheezing. ABDOMEN: Soft and nontender. There is no rebound or guarding. EXTREMITIES: Show no leg edema or calf tenderness. There is no cyanosis or clubbing. SKIN: Shows no rashes. NEUROLOGICAL: Shows no focal abnormalities. LABORATORY DATA: White blood cell count is 13.05, hemoglobin is 11.8, and platelet count is 141. The BUN to creatinine ratio is normal. The other electrolytes are within normal limits. Albumin is 2.6. MPRESSION: 1. Acute respiratory failure. 2. Viral pneumonia and coronavirus disease 2019 infection. 3. Right-sided pneumothorax. 4. Diabetes. 5. Anemia. 6. Thrombocytopenia. see orders
[2020-06-18] MEDS ORDERED: ALBUMIN 25% 25GM 100ML 0.25 GM/ML BTL IV SCH (12:00)
[2020-06-18] MEDS: FLUCONAZOLE 200 MG/100 ML 100 ML IV SCH (15:07)
[2020-06-18] MEDS: VANCOMYCIN 1GM/NS 250 ML 250 ML IV SCH (16:53)
--- NOTE | 2020-06-18 17:34 | Diagnostic Imaging Report ---
EXAMINATION: CHEST SINGLE (PORTABLE) INDICATION: possible pneumomediastinum COMPARISON: Chest radiograph 06/16/2020. FINDINGS: TUBES and LINES: Endotracheal tube terminates 8.1 cm above the tee. Right arm PICC, right chest tube, and enteric tube in unchanged positions. LUNGS: Lungs are moderately inflated. Persistent bilateral interstitial and lower lung zone peripheral airspace opacities. PLEURA: No significant pleural effusion. Persistent lucency at the right lung base. Mild lucency along the left mediastinum, slightly decreased in conspicuity. HEART AND MEDIASTINUM: The cardiomediastinal silhouette is unremarkable. BONES AND SOFT TISSUES: No acute osseous lesion. Bilateral neck and supraclavicular subcutaneous emphysema, unchanged on the right, and new on the left. Interval development of left lateral chest wall subcutaneous emphysema. UPPER ABDOMEN: No free air under the diaphragm. IMPRESSION: Slightly decreased conspicuity of lucency along the left mediastinum may be artifactual or represent a small medial pneumothorax versus pneumomediastinum. Right chest tube in place. Unchanged small right basilar pneumothorax. Bilateral neck and supraclavicular subcutaneous emphysema, unchanged on the right, and new on the left. New left lateral chest wall subcutaneous emphysema. Persistent findings of multifocal pneumonia. Signed by: Dr. Amrit Mahajan MD on 06/18/2020 5:30 PM
[2020-06-18] MEDS ORDERED: SODIUM CHLORIDE 0.9% 250ML 250 ML ONE (21:54)
--- NOTE | 2020-06-18 22:26 | NUR ---
Internal Medicine Progress Note Coverage for Dr. Alfred Larsen. DATE: 06/18/2020 SUBJECTIVE: 32/400/100/14 91% saturation jarquin UOP vital 1.2 at 50/hr water 100 q 6hrs nimbex, fentanyl, versed chest tube, no air leak significant REVIEW OF SYSTEMS: No headaches. No rash. OBJECTIVE: VITAL SIGNS: Reviewed per the chart record. Seen in bed, on ventilator Physical exam limited due to COVID19 precautions and need to decrease PPE use IMPRESSION AND PLAN: 1. 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 Acute hypoxemic/hypercapneic respiratory failure, intubated 3. Diabetes. 4. Severe hypoalbuminemia. 5. worsening tachycardia NOS 6. mild hyperkalemia 7. Syndrome of sinus tachycardia 140s NOS 06/13/20. under investigation by specialists. ?hypovolemia ?secondary immunologic syndrome ?sepsis ?other Maintain intubated per pulmonary Ventilator support, permissive hypercapnia and lung protective ventilation Sedation +/- paralytics as needed for lung and patient safety Treatment of lung disease per designated, supportive care Maintain slightly dry if tolerated Abx per ID expert. Intermittent chest x-rays as needed. DVT prophylaxis. On full anticoagulation with high D-dimer and high risk of .
[2020-06-19] VITALS (24 sets, daily range): BP systolic 105–134; BP diastolic 59–75
[2020-06-19] MEDS: INSULIN LISPRO 100 UNIT/1 ML 3ML VIAL SQ SCH ×4 (00:16→17:35)
[2020-06-19] MEDS: MEROPENEM 1GM 100 ML IV SCH ×3 (00:16→16:19)
--- NOTE | 2020-06-19 01:10 | NUR ---
Pt proned Addendum: 06/19/20 at 0129 by Patricia Chen RT Amended: Links added.
[2020-06-19] MEDS: SODIUM CHLORIDE 0.9% 250ML IRRIG IR SCH ×6 (01:49→22:56)
[2020-06-19 05:37] LABS: BASOPHILS % 0.2 % (0.0-1.0); EOSINOPHILS # (AUTO) 0.1 (0.0-0.4); HEMOGLOBIN 10.7 g/dL (14.0-18.0); LYMPHOCYTES # (AUTO) 1.1 (1.0-3.2); LYMPHOCYTES % 9.2 % (18.0-39.1); MEAN CORPUSCULAR HEMOGLOBIN 32.2 pg (28-32); MEAN CORPUSCULAR HGB CONC 32.4 g/dL (31-35); MEAN CORPUSCULAR VOLUME 99.4 fL (81-99); MONOCYTES # (AUTO) 0.6 (0.2-0.8); MONOCYTES % 5.2 % (4.4-11.3); NEUTROPHILS % 82.8 % (38.7-80.0); PLATELET COUNT 128 x10e3/uL (140-360); RED BLOOD COUNT 3.32 x10e6/uL (4.3-5.7)
[2020-06-19 05:59] LABS: ALANINE AMINOTRANSFERASE 17 IU/L (0-55); ALBUMIN 2.8 g/dL (3.5-5.0); ALBUMIN/GLOBULIN RATIO 0.8 (0.8-2.0); ALKALINE PHOSPHATASE 76 IU/L (40-150); ANION GAP 10.1 mmol/L (8-16); BLOOD UREA NITROGEN 11 mg/dL (7-26); BUN/CREATININE RATIO 23 (6-25); CALCIUM 8.2 mg/dL (8.4-10.2); CHLORIDE 90 mmol/L (98-107); CREATININE, SERUM 0.47 mg/dL (0.72-1.25); EST GLOMERULAR FILTRATION RATE > 60 ML/MIN (60-); GLUCOSE 154 mg/dL (74-118); POTASSIUM 4.1 mmol/L (3.5-5.1); SODIUM 138 mmol/L (136-145)
[2020-06-19 06:17] LABS: CARBON DIOXIDE 42 mmol/L (22-29)
[2020-06-19] MEDS: MIDAZOLAM HCL 50 MG in SODIUM CHLORIDE 0.9% 100 ML 90 ML IV PRN ×3 (07:44→19:00)
[2020-06-19] MEDS: ZINC SULFATE 220 MG CAP PO SCH (08:00)
[2020-06-19] MEDS: ASCORBIC ACID 500 MG TAB PO SCH ×2 (08:00→19:30)
[2020-06-19] MEDS: CHOLECALCIFEROL 1,000 UNIT TAB PO SCH (08:00)
[2020-06-19] MEDS: ENOXAPARIN INJ 80 MG/0.8 ML SYR SC SCH ×2 (08:00→19:30)
[2020-06-19] MEDS: FENTANYL 2000MCG/NS 250 250 ML IV PRN ×3 (08:26→20:45)
[2020-06-19 10:20] LABS: ABG HCO3 46 mmol/L (22-26); ABG PCO2 93 mmHg (35-45); ABG PO2 66 mmHg (80-105)
[2020-06-19 10:21] LABS: ABG TCO2 49
--- NOTE | 2020-06-19 12:10 | Diagnostic Imaging Report ---
EXAMINATION: CHEST SINGLE (PORTABLE) INDICATION: Acute respiratory distress. Pneumomediastinum. COMPARISON: Chest radiograph 06/18/2020. FINDINGS: TUBES and LINES: Endotracheal tube distal tip at approximately 6.0 cm proximal to the tee.. Right arm PICC, right thoracostomy tube and enteric tube appear unchanged in position The enteric tube distal tip is not included. LUNGS: Lungs are moderately inflated. Redemonstration of diffuse bilateral interstitial and lower lung zone peripheral airspace opacities. The lung bases were not completely included. PLEURA: No significant pleural effusion. Persistent lucency at the right lung base. Mild lucency along the left mediastinum, slightly decreased in conspicuity. HEART AND MEDIASTINUM: The cardiomediastinal silhouette is unremarkable. BONES AND SOFT TISSUES: No acute osseous lesion. Redemonstration of subcutaneous emphysema increased on the right particularly medial to the scapula. UPPER ABDOMEN: No free air under the diaphragm. IMPRESSION: Interval increase in subcutaneous emphysema on the right, otherwise no significant change. Signed by: Dr. Verenice Quach M.D. on 06/19/2020 12:06 PM
--- NOTE | 2020-06-19 13:07 | Progress Note ---
DATE: Pulmonary Critical Care Progress Note SUBJECTIVE: The patient remains on mechanical ventilation. He is on a PRVC mode of ventilation with a PEEP of 12 and a tidal volume of 400. His FiO2 is set at 100%. His rate is set at 34. He is still receiving enteral feedings. He remains on Versed, fentanyl, and Nimbex. PHYSICAL EXAMINATION: VITAL SIGNS: The patient is afebrile. The blood pressure is 105/60 and the saturation is 97%. HEENT: Shows no facial swelling or erythema. LYMPHATIC: Shows no submandibular cervical or supraclavicular adenopathy. CARDIAC: Reveals regular rate and rhythm. Normal S1, S2. LUNGS: Auscultation of lungs reveals crackles at the bases. There is no wheezing. ABDOMEN: Soft, nontender. There is no rebound or guarding. EXTREMITIES: Shows no leg edema or calf tenderness. There is no cyanosis or clubbing. SKIN: Shows no rashes. NEUROLOGICAL: Shows no focal abnormalities. LABORATORY DATA: BUN to creatinine ratio is normal. The other electrolytes are within normal limits. White blood cell count is 12.1 and hemoglobin is 10.7. IMPRESSION: 1. Acute respiratory failure. 2. Pneumonia and coronavirus disease -19 infection. 3. Right-sided pneumothorax. 4. Diabetes. 5. Anemia. 6. Thrombocytopenia. PLAN: 1. Place the patient back to supine position later today. 2. Continue current ventilator settings and monitor blood gases. 3. Continue enteral feedings. 4. Continue fentanyl, Versed as well as Nimbex. 5. Continue chest tube to suction. 6. Complete dexamethasone. 7. Lovenox. Greater than 35 minutes in direct critical care time. Brayden De Dios MD [facility]/[place] /[id number]
--- NOTE | 2020-06-19 13:51 | NUR ---
Internal Medicine Progress Note Coverage for Dr. Alfred Larsen. DATE: 06/19/2020 SUBJECTIVE: 34/400/95/14. mv 10.8 pk 34 nimbex, fentanyl, versed tube feeds 30/hr. water 100q 4hrs jarquin REVIEW OF SYSTEMS: No headaches. No rash. OBJECTIVE: VITAL SIGNS: Reviewed per the chart record. Seen in bed, on ventilator Physical exam limited due to COVID19 precautions, prone status, and need to decrease PPE use labs: k 4.1, hcr 42, cr .47. wbc 12, hct 33, plt 128 IMPRESSION AND PLAN: 1. 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 Acute hypoxemic/hypercapneic respiratory failure, intubated 3. Diabetes. 4. Severe hypoalbuminemia. 5. worsening tachycardia NOS 6. mild hyperkalemia 7. Syndrome of sinus tachycardia 140s NOS 06/13/20. under investigation by specialists. ?hypovolemia ?secondary immunologic syndrome ?sepsis ?other Maintain intubated per pulmonary Ventilator support, permissive hypercapnia and lung protective ventilation Sedation +/- paralytics as needed for lung and patient safety Treatment of lung disease per designated, supportive care Maintain slightly dry if tolerated Abx per ID expert. Intermittent chest x-rays as needed. DVT prophylaxis. On full anticoagulation with high D-dimer and high risk of .
[2020-06-19] MEDS: FLUCONAZOLE 200 MG/100 ML 100 ML IV SCH (15:43)
[2020-06-19] MEDS: VANCOMYCIN 1GM/NS 250 ML 250 ML IV SCH (16:19)
[2020-06-19] MEDS: CISATRACURIUM BESYLATE 200 MG in SODIUM CHLORIDE 0.9% 250ML 100 ML IV PRN (16:21)
--- NOTE | 2020-06-19 16:27 | Progress Note ---
DATE: SUBJECTIVE: This is day #17. He remains in intensive care and is intubated, sedated on multiple drugs. His prognosis remains extremely poor. PHYSICAL EXAMINATION: GENERAL: Unchanged. HEENT: Not icteric. NECK: Supple. CHEST: Crackles. HEART: S1, S2. No murmurs. ABDOMEN: Soft. IMPRESSION: Respiratory failure, on maximum support, concerned about underlying encephalopathy. He is very hard to tell. His prognosis remains extremely poor. He is currently on meropenem and Lovenox. He is also on vancomycin, fluconazole. His cultures are showing methicillin-resistant Staphylococcus aureus and Pat albicans from June 14. His white count is 12.2, hemoglobin of 10. Very difficult to assess the patient clinically. We will plan to give him 14 days of these antibiotic but his prognosis is extremely poor. Family is aware. We will follow. MD MARA Sarmiento/AL /[id number]
[2020-06-19] MEDS ORDERED: LIDOCAINE HCL 2% LOCAL 20 ML VIAL ONE (17:42)
[2020-06-19] MEDS ORDERED: EPINEPHRINE HCL SYRINGE ONE (17:43)
[2020-06-19] MEDS: ROCURONIUM BROMIDE 1,250 MG in SODIUM CHLORIDE 0.9% 250ML 125 ML IV SCH (22:56)
[2020-06-20] VITALS (24 sets, daily range): BP systolic 107–155; BP diastolic 60–87
[2020-06-20] MEDS: MEROPENEM 1GM 100 ML IV SCH ×3 (00:31→16:33)
[2020-06-20] MEDS: SODIUM CHLORIDE 0.9% 250ML IRRIG IR SCH ×6 (00:31→22:59)
[2020-06-20] MEDS: MIDAZOLAM HCL 50 MG in SODIUM CHLORIDE 0.9% 100 ML 90 ML IV PRN ×5 (00:45→20:30)
[2020-06-20] MEDS: INSULIN LISPRO 100 UNIT/1 ML 3ML VIAL SQ SCH ×4 (00:50→17:26)
[2020-06-20] MEDS: FENTANYL 2000MCG/NS 250 250 ML IV PRN ×3 (02:22→19:00)
[2020-06-20 04:35] LABS: BASOPHILS % 0.2 % (0.0-1.0); EOSINOPHILS # (AUTO) 0.2 (0.0-0.4); EOSINOPHILS % 1.7 % (0.0-6.0); HEMATOCRIT 32.5 % (38.2-49.6); HEMOGLOBIN 10.3 g/dL (14.0-18.0); LYMPHOCYTES # (AUTO) 1.6 (1.0-3.2); LYMPHOCYTES % 15.7 % (18.0-39.1); MEAN CORPUSCULAR HEMOGLOBIN 32.1 pg (28-32); MEAN CORPUSCULAR HGB CONC 31.7 g/dL (31-35); MEAN CORPUSCULAR VOLUME 101.2 fL (81-99); MONOCYTES # (AUTO) 0.6 (0.2-0.8); MONOCYTES % 6.2 % (4.4-11.3); NEUTROPHILS # (AUTO) 7.6 (2.1-6.9); PLATELET COUNT 127 x10e3/uL (140-360); RED BLOOD COUNT 3.21 x10e6/uL (4.3-5.7)
[2020-06-20 04:59] LABS: ALANINE AMINOTRANSFERASE 16 IU/L (0-55); ALBUMIN 2.4 g/dL (3.5-5.0); ALBUMIN/GLOBULIN RATIO 0.6 (0.8-2.0); ALKALINE PHOSPHATASE 66 IU/L (40-150); ANION GAP 9.9 mmol/L (8-16); BLOOD UREA NITROGEN 11 mg/dL (7-26); BUN/CREATININE RATIO 26 (6-25); CALCIUM 8.3 mg/dL (8.4-10.2); CHLORIDE 87 mmol/L (98-107); CREATININE, SERUM 0.43 mg/dL (0.72-1.25); EST GLOMERULAR FILTRATION RATE > 60 ML/MIN (60-); GLUCOSE 142 mg/dL (74-118); POTASSIUM 3.9 mmol/L (3.5-5.1); SODIUM 137 mmol/L (136-145)
[2020-06-20 05:21] LABS: CARBON DIOXIDE 44 mmol/L (22-29)
--- NOTE | 2020-06-20 08:25 | Diagnostic Imaging Report ---
EXAMINATION: CHEST SINGLE (PORTABLE) INDICATION: Respiratory failure COMPARISON: Day prior chest x-ray FINDINGS: TUBES and LINES: ET tube, enteric tube, right thoracostomy tube, right upper extremity PICC unchanged. LUNGS: Hyperexpanded lungs. Extensive airspace disease. PLEURA: No pleural effusion or pneumothorax. HEART AND MEDIASTINUM: The cardiomediastinal silhouette is borderline enlarged. Small pneumomediastinum. BONES AND SOFT TISSUES: No acute osseous lesion. Subcutaneous emphysema throughout the chest. UPPER ABDOMEN: No free air under the diaphragm. IMPRESSION: Stable lines and tubes. Small volume pneumomediastinum. Extensive airspace haziness. Signed by: Leo Cordoba DO on 06/20/2020 8:22 AM
[2020-06-20] MEDS: ZINC SULFATE 220 MG CAP PO SCH (08:54)
[2020-06-20] MEDS: ASCORBIC ACID 500 MG TAB PO SCH ×2 (08:54→21:18)
[2020-06-20] MEDS: CHOLECALCIFEROL 1,000 UNIT TAB PO SCH (08:54)
[2020-06-20] MEDS: ENOXAPARIN INJ 80 MG/0.8 ML SYR SC SCH ×2 (08:54→21:18)
--- NOTE | 2020-06-20 11:07 | Progress Note ---
DATE: SUBJECTIVE: The patient is currently on a PRVC mode of ventilation. The sedimentation rate of 34 with a tidal volume of 400. His FiO2 is set at 100% and his PEEP is set at 10. He is not having fevers. PHYSICAL EXAMINATION: VITAL SIGNS: The blood pressure is 120/60, saturation is 94% on the above settings. The pulse is 96. HEENT: Shows no facial swelling or erythema. There is an oral endotracheal tube. LYMPHATIC: Shows no submandibular, cervical, or supraclavicular adenopathy. CARDIAC: Reveals regular rate and rhythm with normal S1 and S2. LUNGS: Auscultation of lungs reveals crackles and rhonchi bilaterally. There is no wheezing. ABDOMEN: Soft and nontender. There is no rebound or guarding. EXTREMITIES: Shows no leg edema or calf tenderness. There is no cyanosis or clubbing. SKIN: Shows no rashes. NEUROLOGICAL: Shows no focal abnormalities. LABORATORY DATA: White blood cell count is 10.1 and the hemoglobin is 10.3. The platelet count is 127. The BUN to creatinine ratio is normal. The other electrolytes are within normal limits and the albumin is 2.4. RADIOGRAPHIC DATA: Chest x-ray shows small volume pneumomediastinum. There are bilateral infiltrates. IMPRESSION: 1. Acute respiratory failure. 2. Pneumonia and COVID-19 infection. 3. Pneumomediastinum. 4. Diabetes. 5. Right-sided pneumothorax. 6. Anemia. 7. Thrombocytopenia. PLAN: 1. Continue current ventilator settings and monitor ABG. 2. Continue to wean Nimbex if possible. Continue fentanyl and Versed. 3. Continue enteral feedings. 4. Chest tube to suction. 5. Complete Lovenox. 6. Complete dexamethasone. Greater than 35 minutes in direct critical care time. Brayden De Dios MD [facility]/MOD[facility] /[id number]
--- NOTE | 2020-06-20 14:15 | NUR ---
This is infectious disease parents note patient seen and examined the patient went to intensive care and in critical condition date of service June 20, 2020 patient was seen and discussed with medical team. The patient is currently on a PRVC mode of ventilation. The sedimentation rate of 34 with a tidal volume of 400. His FiO2 is set at 100% and his PEEP is set at 10. He is not having fevers. PHYSICAL EXAMINATION: VITAL SIGNS: The blood pressure is 120/60, saturation is 94% on the above settings. The pulse is 96. HEENT: Shows no facial swelling or erythema. There is an oral endotracheal tube. intubated and sedated LYMPHATIC: Shows no submandibular, cervical, or supraclavicular adenopathy. CARDIAC: Reveals regular rate and rhythm with normal S1 and S2. LUNGS: Auscultation of lungs reveals crackles and rhonchi bilaterally. There is no wheezing. ABDOMEN: Soft and nontender. There is no rebound or guarding. EXTREMITIES: Shows no leg edema or calf tenderness. There is no cyanosis or clubbing. SKIN: Shows no rashes. NEUROLOGICAL: Shows no focal abnormalities. LABORATORY DATA: White blood cell count is 10.1 and the hemoglobin is 10.3. The platelet count is 127. The BUN to creatinine ratio is normal. The other electrolytes are within normal limits and the albumin is 2.4. RADIOGRAPHIC DATA: Chest x-ray shows small volume pneumomediastinum. There are bilateral infiltrates. IMPRESSION: 1. Acute respiratory failure. 2. Pneumonia and COVID-19 infection. 3. Pneumomediastinum. 4. Diabetes. 5. Right-sided pneumothorax. 6. Anemia. 7. Thrombocytopenia. continue with plans in order to continue supportive care prognosis remains poor
[2020-06-20] MEDS: FLUCONAZOLE 200 MG/100 ML 100 ML IV SCH (15:01)
[2020-06-20] MEDS: ROCURONIUM BROMIDE 1,250 MG in SODIUM CHLORIDE 0.9% 250ML 125 ML IV SCH ×2 (16:33→21:00)
[2020-06-20] MEDS: VANCOMYCIN 1GM/NS 250 ML 250 ML IV SCH (16:34)
--- NOTE | 2020-06-20 17:04 | NUR ---
Nutrition Intervention Note RD Recommendation(s) for Physician: -Continue Vital AF 1.2 and increase towards goal rate of 60 mL/hr (provides 1728 kcal, 108 g protein). -Fluid management per MD. -TF not meeting needs > 7 days, if unable to advance to goal rate in 24-48 hrs recommend TPN. Standard TPN at 42 ml/hr of (D30W/500ml), (AA10%/500ml), Lipids 25 g/day, standard lytes per current lab trend, MVI, trace, thiamine. Plan of Care: RD following, monitoring for tolerance and adequacy, TF and TPN rec's Nutrition reason for involvement: follow up RD Assessment 06/20: Follow up. Chart reviewed. Pt remains intubated. TF is infusing at 30 mL/her per chart. Recommend increasing towards goal as medically appropriate. BM still not documented. Will continue to monitor. 06/15: Follow up. Pt remains intubated, sedated, and paralyzed. Pt requiring intermittent proning. TF of Glucerna 1.2 infusing at 10 ml/hr- pt tolerating trickle feeds, however not meeting needs. Pt with no documented BM since initiation of TF, no flatus and hypoactive BS currently. RD to manage TF order per Dr. De Dios. TPN rec's provided pending inability to advance TF to goal rate. 06/10: Early follow up due to initiation of enteral nutrition. Pt is now intubated and tube feed order was placed yesterday per chart. Tube feed recommendations provided. Will continue to monitor (06/06/20) Chart reviewed. Labs and meds reviewed. RD received consult for nutrition assessment. Pt is a 55 year old male admitted with acute respiratory distress and COVID-19. Pt is in the COVID ICU and RD is unable to enter room due to isolation precautions. RD called pt's nurse over the phone. RN stated pt is eating well and is consuming >50% of meals. Speech therapy evaluated pt and recommended a nectar thick liquid diet at this time and a modified barium swallow study be performed to rule out aspiration. Will continue to monitor Principal Problems/Diagnoses: acute respiratory distress, COVID-19 PMH: Diabetes. I/O: 2390/1305 GI: no flatus, no BM recorded; + NGT Skin: suspected DTI L cheek Labs: (06/20) Na 137, K 3.9, BUN 11, Cr 0.43, Glu 142, Ca 8.3 06/15: Na 138, K 4.3, BUN 17, Cr 0.54, Gluc 187, POC Gluc 184-204 06/14: CRP 96 (06/10) Na 133, K 4.4, BUN 15, Cr 0.67, Glu 295, Ca 7.7 Meds: insulin, antibiotics, vitamin C, zinc sulfate, fentanyl, rocuronium, norepinephrine Ht: 70 in Wt: 171.06 (06/17) 171 lbs (06/15) 172 lbs(06/09) 170 lb (06/06) BMI: 24.4 kg/m2 using wt of 170 lbs IBW:166 lb Malnutrition Evaluation (06/20/20) The patient does not meet criteria for a specified degree of malnutrition at this time. Unable to perform NFPE at this time. Will re-evaluate at follow-up as appropriate. Intake adequacy: Acute moderate- TF not meeting <50% of estimated needs > 7 days Wt loss: None- no wt loss is evident Fat loss: DEMETRIO 2/2 COVID ICU isolation precautions Muscle loss: DEMETRIO 2/2 COVID ICU isolation precautions Edema: no edema per documentation Functional status: DEMETRIO, pt intubated and sedated in [facility] ICU Nutrition Prescription (Diet Order): Vital AF 1.2 @ 60 mL/hr infusing at 30 mL/hr (provides 864 kcal, 54 g protein) Estimated Nutritional Needs: 8533-2632 calories/day (20-25 kcal/kg CBW) 93-155 g protein/day (1.2-2 g pro/kg CBW) Diet Adequacy: Not meeting calorie needs, Not meeting protein needs Tolerance: Tolerating TF Diet Education Needs Assessment: Diet education not indicated, pt is intubated Nutrition Care Level: high- not meeting needs Nutrition Diagnosis: Inadequate oral intake related to acute respiratory failure/mechanical ventilation as evidenced by need for enteral nutrition. Goal: Patient will meet 75-100% of estimated needs by follow up Progress: goal not met Interventions: -Composition, Rate, Route Monitoring/Evaluation: -Total energy intake, Total protein intake, Formula/Solution, Weight change Signed: Venessa Green RD, LD
[2020-06-20 18:33] LABS: ABG HCO3 46 mmol/L (22-26); ABG PCO2 94 mmHg (35-45); ABG PO2 79 mmHg (80-105)
[2020-06-20 18:34] LABS: ABG TCO2 49
[2020-06-20 19:19] LABS: ABG HCO3 48 mmol/L (22-26); ABG PCO2 78 mmHg (35-45); ABG PO2 91 mmHg (80-105); ABG TCO2 50
--- NOTE | 2020-06-20 19:30 | Progress Note ---
DATE: 06/20/2020 SUBJECTIVE: Events noted. A 55-year-old gentleman who has been seen for the following problems: 1. Acute respiratory failure. 2. COVID-19 infection with pneumonia. 3. Right-sided pneumothorax. 4. Anemia. 5. Thrombocytopenia. 6. Diabetes mellitus type 2 and events noted. The patient at this time has been on the vent with a tidal volume of 400, FiO2 100%. The patient is on PRVC mode of ventilation with a PEEP of 12 and as mentioned tidal volume 400. Dr. De Dios is following the patient from Critical Care Pulmonary standpoint. The patient already on enteral feedings. Does have chest tube in place. Chest tube suctioning. The patient completed the dexamethasone and presently on Lovenox today. OBJECTIVE: VITAL SIGNS: This morning, blood pressure 120/60, pulse 96, temperature 98.6. HEENT: Head is atraumatic. NECK: Supple. No JVD. HEART: S1, S2. No murmurs. ABDOMEN: Soft, nontender. EXTREMITIES: No edema. PLAN OF CARE: The patient be followed by ID. The patient has been on meropenem, vancomycin and fluconazole. Stool culture did reveal methicillin-resistant staphylococci aureus and Pat albicans from 10 as well as 18. Continue antibiotics as advised. The patient not doing well. MD PENNY Kraus/[place] /[id number]
[2020-06-21] VITALS (23 sets, daily range): BP systolic 114–166; BP diastolic 52–85
[2020-06-21] MEDS: MEROPENEM 1GM 100 ML IV SCH ×2 (00:04→08:35)
[2020-06-21] MEDS: SODIUM CHLORIDE 0.9% 250ML IRRIG IR SCH ×6 (00:05→22:04)
[2020-06-21] MEDS: INSULIN LISPRO 100 UNIT/1 ML 3ML VIAL SQ SCH ×5 (00:14→23:44)
[2020-06-21] MEDS: MIDAZOLAM HCL 50 MG in SODIUM CHLORIDE 0.9% 100 ML 90 ML IV PRN ×3 (04:38→20:17)
[2020-06-21 04:44] LABS: BASOPHILS % 0.2 % (0.0-1.0); EOSINOPHILS # (AUTO) 0.2 (0.0-0.4); EOSINOPHILS % 1.5 % (0.0-6.0); HEMOGLOBIN 10.8 g/dL (14.0-18.0); LYMPHOCYTES # (AUTO) 1.3 (1.0-3.2); LYMPHOCYTES % 11.8 % (18.0-39.1); MEAN CORPUSCULAR HEMOGLOBIN 32.8 pg (28-32); MEAN CORPUSCULAR HGB CONC 32.7 g/dL (31-35); MEAN CORPUSCULAR VOLUME 100.3 fL (81-99); MONOCYTES # (AUTO) 0.9 (0.2-0.8); MONOCYTES % 8.2 % (4.4-11.3); NEUTROPHILS # (AUTO) 8.5 (2.1-6.9); NEUTROPHILS % 77.2 % (38.7-80.0); PLATELET COUNT 139 x10e3/uL (140-360); RED BLOOD COUNT 3.29 x10e6/uL (4.3-5.7); RED CELL DISTRIBUTION WIDTH 13.1 % (11.7-14.4)
[2020-06-21 05:15] LABS: ALANINE AMINOTRANSFERASE 14 IU/L (0-55); ALBUMIN 2.3 g/dL (3.5-5.0); ALBUMIN/GLOBULIN RATIO 0.6 (0.8-2.0); ALKALINE PHOSPHATASE 70 IU/L (40-150); ANION GAP 7.7 mmol/L (8-16); BLOOD UREA NITROGEN 10 mg/dL (7-26); BUN/CREATININE RATIO 22 (6-25); CALCIUM 8.5 mg/dL (8.4-10.2); CHLORIDE 89 mmol/L (98-107); CREATININE, SERUM 0.46 mg/dL (0.72-1.25); EST GLOMERULAR FILTRATION RATE > 60 ML/MIN (60-); GLUCOSE 139 mg/dL (74-118); POTASSIUM 3.7 mmol/L (3.5-5.1); SODIUM 135 mmol/L (136-145)
[2020-06-21 05:20] LABS: CARBON DIOXIDE 42 mmol/L (22-29)
[2020-06-21] MEDS: ZINC SULFATE 220 MG CAP PO SCH (08:35)
[2020-06-21] MEDS: CHOLECALCIFEROL 1,000 UNIT TAB PO SCH (08:35)
[2020-06-21] MEDS: ASCORBIC ACID 500 MG TAB PO SCH ×2 (08:35→20:16)
[2020-06-21] MEDS: FENTANYL 2000MCG/NS 250 250 ML IV PRN ×3 (08:36→20:18)
--- NOTE | 2020-06-21 08:49 | Diagnostic Imaging Report ---
EXAMINATION: CHEST SINGLE (PORTABLE) INDICATION: Respiratory failure COMPARISON: Chest radiograph 06/20/2020 FINDINGS: LINES/TUBES:Support lines and tubes unchanged. LUNGS:The lungs are moderately inflated. Unchanged bilateral multifocal airspace and interstitial opacities. PLEURA:No pleural effusion or pneumothorax. MEDIASTINUM:The cardiomediastinal silhouette appears unchanged in size and shape. BONES/SOFT TISSUES:No acute osseous injury. Unchanged diffuse subcutaneous soft tissue emphysema. ABDOMEN:No free air under the diaphragm. IMPRESSION: No significant interval change. Signed by: Evi Davis MD on 06/21/2020 8:45 AM
[2020-06-21 09:13] LABS: ABG PH 7.33 (7.35-7.45)
[2020-06-21 09:14] LABS: ABG HCO3 42 mmol/L (22-26); ABG PCO2 79 mmHg (35-45); ABG PO2 63 mmHg (80-105); ABG TCO2 44
[2020-06-21] MEDS: ALBUMIN 25% 25GM 100ML 100 ML IV SCH ×3 (11:38→23:44)
--- NOTE | 2020-06-21 11:54 | Progress Note ---
DATE: SUBJECTIVE: The patient is now in the prone position. His FiO2 is increased to 100% due to low oxygen saturations. He remains hemodynamically stable. PHYSICAL EXAMINATION: VITAL SIGNS: The blood pressure is 131/72, saturation is 92%, and the pulse is 103. He is currently on a PRVC mode of ventilation at a rate of 34 with a tidal volume of 420. His PEEP is set at 14 and his FiO2 is set at 100%. HEENT: Shows no facial swelling or erythema. LYMPHATIC: Shows no submandibular, cervical, or supraclavicular adenopathy. CARDIAC: Reveals a regular rate and rhythm with normal S1 and S2. LUNGS: Auscultation of lungs reveals rhonchorous breath sounds bilaterally. There is no wheezing. ABDOMEN: Soft and nontender. There is no rebound or guarding. EXTREMITIES: Shows no leg edema or calf tenderness. LABORATORY DATA: The white blood cell count is 11 and hemoglobin is 10.8. The platelet count is 139. The BUN to creatinine ratio is 10 to 0.46. Other electrolytes are within normal limits and the albumin is 2.3. Blood gases; 7.33, 79, 63, and 42. RADIOGRAPHIC DATA: X-ray shows no acute changes. IMPRESSION: 1. Acute respiratory failure. 2. Pneumonia and COVID-19 infection. 3. Pneumomediastinum. 4. Diabetes. 5. Right-sided pneumothorax. 6. Anemia. 7. Thrombocytopenia. PLAN: 1. Continue current ventilator settings and monitor ABG. 2. Continue to keep the patient in prone position. 3. Continue to use Versed and fentanyl as well as rocuronium. 4. Continue enteral feedings. 5. Chest tube to wall suction. 6. Complete dexamethasone. 7. Complete antibiotics. 8. Continue Lovenox. Greater than 35 minutes in direct critical care time. Brayden De Dios MD [facility]/MODL /[id number]
[2020-06-21] MEDS ORDERED: ALBUMIN 25% 25GM 100ML 0.25 GM/ML BTL IV SCH (12:00)
--- NOTE | 2020-06-21 12:24 | NUR ---
infectious disease progress note. This is a 16/03/2020. Her patient seen and examined chart reviewed patient remains extremely critical in the intensive care unit intubated and sedated that we did review of chart medication list also reviewed The patient is now in the prone position. His FiO2 is increased to 100% due to low oxygen saturations. He remains hemodynamically stable. PHYSICAL EXAMINATION:vitals stable no fever VITAL SIGNS: The blood pressure is 131/72, saturation is 92%, and the pulse is 103. He is currently on a PRVC mode of ventilation at a rate of 34 with a tidal volume of 420. His PEEP is set at 14 and his FiO2 is set at 100%. HEENT: Shows no facial swelling or erythema. LYMPHATIC: Shows no submandibular, cervical, or supraclavicular adenopathy. CARDIAC: Reveals a regular rate and rhythm with normal S1 and S2. LUNGS: Auscultation of lungs reveals rhonchorous breath sounds bilaterally. There is no wheezing. ABDOMEN: Soft and nontender. There is no rebound or guarding. EXTREMITIES: Shows no leg edema or calf tenderness. LABORATORY DATA: The white blood cell count is 11 and hemoglobin is 10.8. The platelet count is 139. The BUN to creatinine ratio is 10 to 0.46. Other electrolytes are within normal limits and the albumin is 2.3. Blood gases; 7.33, 79, 63, and 42. RADIOGRAPHIC DATA: X-ray shows no acute changes. IMPRESSION: 1. Acute respiratory failure. 2. Pneumonia and COVID-19 infection. 3. Pneumomediastinum. 4. Diabetes. 5. Right-sided pneumothorax. 6. Anemia. continue with supportive care as ordered prognosis remains extremely poor will follow
--- NOTE | 2020-06-21 12:29 | NUR ---
infectious disease [place] not continue. The patient has been on antibiotic for 7 days will discontinue antibiotic and follow him closely for aspiration pneumonia
[2020-06-21] MEDS: FUROSEMIDE INJ 100 MG in SODIUM CHLORIDE 0.9% 100 ML 90 ML IV SCH (12:55)
[2020-06-21] MEDS: ACETAZOLAMIDE SODIUM 500 MG/VIAL IV SCH ×2 (12:55→20:16)
--- NOTE | 2020-06-21 14:23 | NUR ---
Internal Medicine Progress Note Coverage for Dr. Alfred Larsen. DATE: 06/21/2020 SUBJECTIVE: 34/400/100/14 ventilator 89% saturation chest tube x 1 albumin 25% rocuronium, fentanyl 350, versed 10/ tube feeds 30/ water 100 q4 hrs REVIEW OF SYSTEMS: No headaches. No rash. OBJECTIVE: VITAL SIGNS: Reviewed per the chart record. Seen in bed, on ventilator Physical exam limited due to COVID19 precautions, prone status, and need to decrease PPE use labs: k 3.7, cr 0.46. wbc 11, hct 33, plt 139. IMPRESSION AND PLAN: 1. 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 Acute hypoxemic/hypercapneic respiratory failure, intubated 3. Diabetes. 4. Severe hypoalbuminemia. 5. worsening tachycardia NOS 6. mild hyperkalemia Maintain intubated per pulmonary Ventilator support, permissive hypercapnia and lung protective ventilation Sedation +/- paralytics as needed for lung and patient safety Treatment of lung disease per designated, supportive care Maintain slightly dry if tolerated Abx per ID expert. Intermittent chest x-rays as needed. DVT prophylaxis. On full anticoagulation with high D-dimer and high risk of .
[2020-06-21] MEDS: ENOXAPARIN SOD INJ 40 MG/0.4 ML SYR SC SCH (20:16)
[2020-06-21] MEDS: ROCURONIUM BROMIDE 1,250 MG in SODIUM CHLORIDE 0.9% 250ML 125 ML IV SCH (20:17)
[2020-06-21] MEDS ORDERED: ENOXAPARIN INJ 80 MG/0.8 ML SYR SC SCH (21:00)
--- NOTE | 2020-06-21 21:57 | Progress Note ---
DATE: 06/21/2020 REASON FOR PROGRESS NOTE: Respiratory insufficiency, COVID-19, pneumothorax; requested by Dr. Verenice De Dios. SUBJECTIVE: Intubated and sedated. Still critically ill. The patient in the prone position. He is on 100% FiO2. PHYSICAL EXAMINATION: VITAL SIGNS: Blood pressure 120/65. O2 saturation 92% on FiO2 100%. Heart rate 100. PRBC at 34 with tidal volume 420. PEEP 14. HEENT: No facial swelling or erythema. NECK: Supple, nontender. CARDIAC: Shows a regular rate and rhythm. Normal S1, S2. No rub murmur. LUNGS: Coarse ventilator sounds bilaterally. Chest tube is in place. No visible air leak. ABDOMEN: Globoid, benign. BACK: No CVA tenderness. No muscular spasm. EXTREMITIES: No cyanosis, clubbing, or edema. REVIEW OF SYSTEMS: Unobtainable because the patient is intubated. LABORATORIES: Chest x-ray, unchanged. Lung is expanded. White count 11. Hemoglobin 10.8. IMPRESSION: Acute respiratory failure. Chest tube in place and functioning appropriately. No evidence of acute pneumothorax. I agree with the current treatment and we will follow. MD LENY OcampoL/MODL /[id number]
[2020-06-21] MEDS ORDERED: ALBUMIN 25% 12.5GM 50ML 100 ML IV ONE (23:36)
[2020-06-22] VITALS (25 sets, daily range): BP systolic 115–146; BP diastolic 56–79
[2020-06-22] MEDS: SODIUM CHLORIDE 0.9% 250ML IRRIG IR SCH ×5 (02:54→23:00)
--- NOTE | 2020-06-22 04:06 | Diagnostic Imaging Report ---
EXAMINATION: CHEST SINGLE (PORTABLE) INDICATION: pulm update COMPARISON: Radiograph from yesterday. FINDINGS: Right basilar chest tube. Trace right pneumothorax is suspected. Extensive subcutaneous emphysema in the right chest wall, unchanged. Diffuse interstitial and patchy opacities throughout both lungs, unchanged. Heart is mildly enlarged. Tip of a right PICC projects over the distal SVC. An enteric tube courses below the diaphragm. Endotracheal tube is a 8.5 cm above the tee. IMPRESSION: 1. Right basilar chest tube with trace right pneumothorax suspected. 2. Endotracheal tube is a 8.5 cm above the tee. 3. Diffuse interstitial and patchy lung opacities are not significantly changed from prior study. Signed by: Jeison Mckeon MD on 06/22/2020 4:03 AM
[2020-06-22 04:32] LABS: BASOPHILS % 0.2 % (0.0-1.0); EOSINOPHILS # (AUTO) 0.2 (0.0-0.4); HEMOGLOBIN 9.7 g/dL (14.0-18.0); LYMPHOCYTES # (AUTO) 1.2 (1.0-3.2); LYMPHOCYTES % 13.5 % (18.0-39.1); MEAN CORPUSCULAR HEMOGLOBIN 32.6 pg (28-32); MEAN CORPUSCULAR HGB CONC 32.3 g/dL (31-35); MEAN CORPUSCULAR VOLUME 100.7 fL (81-99); MONOCYTES # (AUTO) 0.8 (0.2-0.8); MONOCYTES % 9.2 % (4.4-11.3); NEUTROPHILS # (AUTO) 6.7 (2.1-6.9); NEUTROPHILS % 73.7 % (38.7-80.0); PLATELET COUNT 140 x10e3/uL (140-360); RED BLOOD COUNT 2.98 x10e6/uL (4.3-5.7); RED CELL DISTRIBUTION WIDTH 13.3 % (11.7-14.4)
[2020-06-22 04:52] LABS: ALANINE AMINOTRANSFERASE 12 IU/L (0-55); ALBUMIN 3.2 g/dL (3.5-5.0); ALBUMIN/GLOBULIN RATIO 0.9 (0.8-2.0); ALKALINE PHOSPHATASE 59 IU/L (40-150); ANION GAP 11.4 mmol/L (8-16); BLOOD UREA NITROGEN 10 mg/dL (7-26); BUN/CREATININE RATIO 19 (6-25); CALCIUM 8.6 mg/dL (8.4-10.2); CARBON DIOXIDE 39 mmol/L (22-29); CHLORIDE 90 mmol/L (98-107); CREATININE, SERUM 0.52 mg/dL (0.72-1.25); EST GLOMERULAR FILTRATION RATE > 60 ML/MIN (60-); GLUCOSE 123 mg/dL (74-118); POTASSIUM 3.4 mmol/L (3.5-5.1); SODIUM 137 mmol/L (136-145)
[2020-06-22] MEDS: INSULIN LISPRO 100 UNIT/1 ML 3ML VIAL SQ SCH ×3 (05:13→17:22)
[2020-06-22 07:36] LABS: ABG HCO3 29 mmol/L (22-26); ABG PCO2 42 mmHg (35-45); ABG PH 7.45 (7.35-7.45); ABG PO2 166 mmHg (80-105); ABG TCO2 30
[2020-06-22] MEDS: ASCORBIC ACID 500 MG TAB PO SCH ×2 (09:07→21:29)
[2020-06-22] MEDS: CHOLECALCIFEROL 1,000 UNIT TAB PO SCH (09:07)
[2020-06-22] MEDS: ACETAZOLAMIDE SODIUM 500 MG/VIAL IV SCH (09:07)
[2020-06-22] MEDS: ZINC SULFATE 220 MG CAP PO SCH (09:07)
[2020-06-22] MEDS: ENOXAPARIN SOD INJ 40 MG/0.4 ML SYR SC SCH ×2 (09:08→21:29)
[2020-06-22] MEDS ORDERED: SODIUM CHLORIDE 0.9% 1000ML 1,000 ML ONE (09:13)
[2020-06-22] MEDS ORDERED: POTASSIUM CHLORIDE 20MEQ/15ML UDC NG SCH (09:15)
[2020-06-22] MEDS ORDERED: POTASSIUM CHLORIDE 20MEQ/100ML 200 ML IV ONE (09:15)
[2020-06-22] MEDS: FUROSEMIDE INJ 100 MG in SODIUM CHLORIDE 0.9% 100 ML 90 ML IV SCH (11:15)
[2020-06-22] MEDS ORDERED: SODIUM CHLORIDE 0.9% 250ML 250 ML ONE (11:18)
[2020-06-22 11:57] LABS: PHOSPHORUS 3.3 MG/DL (2.3-4.7)
[2020-06-22] MEDS: FENTANYL 2000MCG/NS 250 250 ML IV PRN ×2 (12:02→17:54)
[2020-06-22] MEDS: MIDAZOLAM HCL 5MG/ML 10ML VIAL 100 ML IV PRN ×2 (12:02→17:48)
--- NOTE | 2020-06-22 12:20 | NUR ---
Telephone Collector called pt's daughter to follow up. Pt's daughter hoping for improvement in his health thru tad. Pt's daughter states, "Dad raised us to trust in God." Telephone Collector provided empathic listening and reminded her of availability of supply assistant services as a resource. Will continue to follow as able. ZAINAB Calzada [facility] Department O: [phone]
--- NOTE | 2020-06-22 12:35 | Progress Note ---
DATE: Pulmonary Critical Care Progress note SUBJECTIVE: The patient has increased subcutaneous emphysema on the right side. Repeat chest x-ray showed no apparent pneumo. The patient is now on a PRVC mode of ventilation at a rate of 34 with a tidal volume of 380. His FiO2 is set at 85% and his PEEP is set at 12. He is off pressors. PHYSICAL EXAMINATION: VITAL SIGNS: The patient is afebrile. The blood pressure is 125/70, saturation is 94%. The pulse is 110. HEENT: Shows no facial swelling or erythema. LYMPHATIC: Shows no submandibular, cervical or supraclavicular adenopathy. There is an oral endotracheal tube in place. There is some subcutaneous emphysema on the right side. There is a right-sided chest tube. The site is clean. CARDIAC: Reveals regular rate and rhythm with normal S1 and S2. ABDOMEN: Soft and nontender. There is no rebound or guarding. He has no leg edema or calf tenderness. LABORATORY DATA: White blood cell count is 9.05 and the hemoglobin is 9.7. The platelet count is 140. The BUN to creatinine ratio is normal. The other electrolytes are within normal limits. Potassium is 3.4. IMPRESSION: 1. Acute respiratory failure. 2. Viral pneumonia and COVID-19 infection. 3. Methicillin-resistant Staph aureus pneumonia. 4. Pneumomediastinum and right-sided pneumothorax. 5. Anemia. 6. Thrombocytopenia. 7. Hypokalemia. PLAN: 1. CT scan of the chest with re-evaluation for recurrent pneumothorax. 2. ET tube has been advanced. We will repeat chest x-ray as well. 3. Continue current ventilator settings and repeat ABG. 4. Zyvox twice daily for an additional 6 days. 5. Continue Lasix drip. 6. Replace potassium as needed. 7. Continue Lovenox. 8. Case discussed with nightshift nursing, dayshift nursing, Respiratory, Infectious Disease, and Internal Medicine. Greater than 35 minutes in direct critical care time. MD BRAYAN Rodriguez/AL /[id number]
[2020-06-22] MEDS ORDERED: EPINEPHRINE HCL SYRINGE ONE (12:41)
--- NOTE | 2020-06-22 12:47 | NUR ---
infectious disease progress note Patient seen and examined chart reviewed Patient remains in intensive care unit Events noted The patient has increased subcutaneous emphysema on the right side. Repeat chest x-ray showed no apparent pneumo. The patient is now on a PRVC mode of ventilation at a rate of 34 with a tidal volume of 380. His FiO2 is set at 85% and his PEEP is set at 12. He is off pressors. PHYSICAL EXAMINATION:patient remains on ventilator in the intensive care unit VITAL SIGNS: The patient is afebrile. The blood pressure is 125/70, saturation is 94%. The pulse is 110. HEENT: Shows no facial swelling or erythema. he is not pale or icteric LYMPHATIC: Shows no submandibular, cervical or supraclavicular adenopathy. There is an oral endotracheal tube in place. There is some subcutaneous emphysema on the right side. There is a right-sided chest tube. The site is clean. CARDIAC: Reveals regular rate and rhythm with normal S1 and S2. ABDOMEN: Soft and nontender. There is no rebound or guarding. He has no leg edema or calf tenderness. LABORATORY DATA: White blood cell count is 9.05 and the hemoglobin is 9.7. The platelet count is 140. The BUN to creatinine ratio is normal. The other electrolytes are within normal limits. Potassium is 3.4. IMPRESSION: 1. Acute respiratory failure. 2. Viral pneumonia and COVID-19 infection. 3. Methicillin-resistant Staph aureus pneumonia. 4. Pneumomediastinum and right-sided pneumothorax. 5. Anemia. 6. Thrombocytopenia. 7. Hypokalemia. please refer to the orders discussed with the medical team Continue with supportive care prognosis remains very guarded
--- NOTE | 2020-06-22 13:41 | Diagnostic Imaging Report ---
EXAM: CT Chest WITHOUT contrast INDICATION: Evaluate for pneumothorax. COMPARISON: Multiple prior chest radiograph including most recent on 06/22/2020. TECHNIQUE: Chest was scanned utilizing a multidetector helical scanner from the lung apex through the level of the adrenal glands without administration of IV contrast. Absence of intravenous contrast decreases sensitivity for detection of lymphadenopathy and vascular pathology. Coronal and sagittal reformations were obtained. Routine protocol was performed. IV CONTRAST: None COMPLICATIONS: None RADIATION DOSE: Total DLP: 576.75 mGy*cm Estimated effective dose: (DLP x 0.014 x size factor) mSv CTDIvol has been reviewed. It is below the limits set by the Radiation Protocol Committee (RPC). Dose modulation, iterative reconstruction, and/or weight based adjustment of the mA/kV was utilized to reduce the radiation dose to as low as reasonably achievable. FINDINGS: LINES/ TUBES: Endotracheal tube terminates approximately 5 cm above the ete. There is a completely imaged subdiaphragmatic enteric tube. Right PICC which terminates in the distal SVC. LUNGS AND AIRWAYS: The central airways are patent and the trachea is midline. There is diffuse interlobular septal thickening, diffuse groundglass with patchy areas of consolidative opacities throughout both lungs. These findings are most pronounced in the left lower lobe. PLEURA: There is small left pleural effusion. No evidence of pneumothorax. HEART AND MEDIASTINUM: There is extensive pneumomediastinum. The heart is normal in size with small pericardial effusion. There are multiple prominent mediastinal lymph nodes, likely reactive. The thyroid gland is normal for image technique. UPPER ABDOMEN: Unremarkable. BONES: There are degenerative changes in the thoracic spine. SOFT TISSUES: There is extensive subcutaneous emphysema throughout anterior and posterior bilateral chest wall extending into the neck soft tissues. IMPRESSION: 1. Diffuse interlobular septal thickening and diffuse groundglass opacity with patchy areas of consolidative opacities throughout both lungs. These findings are compatible with patient's known history of multifocal pneumonia and probable superimposed ARDS. No evidence of pneumothorax. 2. Extensive pneumomediastinum and subcutaneous emphysema throughout the chest wall, likely from barotrauma. 3. Support lines/tubes as above. Signed by: Herminia Nowak MD on 06/22/2020 1:38 PM
[2020-06-22 14:14] LABS: ABG PH 7.25 (7.35-7.45)
[2020-06-22 14:15] LABS: ABG HCO3 41 mmol/L (22-26); ABG PCO2 92 mmHg (35-45); ABG PO2 76 mmHg (80-105); ABG TCO2 44
[2020-06-22] MEDS: LINEZOLID 600 MG/D5W 300ML 300 ML IV SCH ×2 (14:15→21:29)
--- NOTE | 2020-06-22 16:00 | NUR ---
THIS RN RESUMED CARE
--- NOTE | 2020-06-22 19:31 | Progress Note ---
DATE: 06/22/2020 REASON FOR PROGRESS NOTE: Respiratory insufficiency, COVID-19, pneumothorax; requested by Dr. Brayden De Dios. SUBJECTIVE: The patient is in the ICU on ventilator support, intubated and sedated. He has had increasing subcutaneous emphysema on the right side today. PRVC mode of ventilation at 34 with tidal volume 380. FiO2 85% with PEEP of 12. On no inotropic or vasopressor support. REVIEW OF SYSTEMS: Unobtainable because the patient is intubated. PHYSICAL EXAMINATION: VITAL SIGNS: Blood pressure 120/70. O2 saturation 95%. Pulse 105 and regular. HEENT: Has some subcutaneous emphysema, more marked on the right side of the face. Mucous membranes moist. NECK: Supple, nontender. Subcutaneous emphysema present in the neck as well. Also greater on the right than the left. CARDIAC: Regular rate and rhythm. Normal S1 and S2. No rub or murmur. LUNGS: Coarse ventilator sounds bilaterally. There is extensive subcutaneous emphysema over both chest. Right is greater than left. ABDOMEN: Globally benign. Good bowel sounds. No hepatosplenomegaly. Chest tube: Right-sided chest tube. Minimal air leak. BACK: No CVA tenderness. No muscular spasm. LABORATORY DATA AND IMAGING: Chest x-ray and CT scan are reviewed. There is extensive subcutaneous emphysema. There is no identifiable pneumothorax. Both lungs have severe ground-glass appearance compatible with COVID-19. White count 9.5, hemoglobin 9.7, platelet count 140. IMPRESSION: Severe respiratory insufficiency and underlying lung parenchymal disease. There is more extensive subcutaneous emphysema today. There is no identifiable pneumothorax on chest x-ray or CT scan. Despite this, there is also no real air leak in the presently placed chest tube on the right. Subcutaneous emphysema appears to be accumulating on the right. Because of this, I have discussed this situation with Dr. De Dios. We both agree that a right-sided chest tube would be in order and I will place this. Jonn Dunn MD [facility]/MODL /[id number]
--- NOTE | 2020-06-22 19:47 | Diagnostic Imaging Report ---
EXAMINATION: CHEST SINGLE (PORTABLE) INDICATION: Chest tube placement. COMPARISON: Same day CT of the chest and multiple prior radiographs. FINDINGS: Interval placement of new right chest tube. Right PICC, endotracheal tube, subdiaphragmatic enteric tubes are all unchanged. Redemonstration of multifocal interstitial and airspace opacities throughout both lungs. There is small left pleural effusion. No evidence of pneumothorax. No interval change in extensive emphysema of the chest wall. The cardiomediastinal silhouette is obscured. IMPRESSION: 1. Interval placement of new right chest tube. No significant change in prior right chest tube. Stable support lines/tubes as above. 2. No interval change in radiographic appearance of the lungs. No radiographic evidence of pneumothorax. 3. No significant interval change in extensive subcutaneous emphysema. 4. Small left pleural effusion. Signed by: Herminia Nowak MD on 06/22/2020 7:44 PM
--- NOTE | 2020-06-22 20:23 | NUR ---
Progress note 06/22/20 SUBJECTIVE: Events noted. A 55-year-old gentleman who has been seen for the following problems: 1. Acute respiratory failure. 2. COVID-19 infection with pneumonia. 3. Right-sided pneumothorax. 4. Anemia. 5. Thrombocytopenia. 6. Diabetes mellitus type 2 and events noted. The patient at this time has been on the vent with a tidal volume of 400, FiO2 100%. The patient is on PRVC mode of ventilation with a PEEP of 12 and as mentioned tidal volume 400. Dr. De Dios is following the patient from Critical Care Pulmonary standpoint. The patient already on enteral feedings. Does have chest tube in place. Chest tube suctioning. The patient completed the dexamethasone and presently on Lovenox today. OBJECTIVE: VITAL SIGNS: This morning, blood pressure 120/60, pulse 96, temperature 98.6. HEENT: Head is atraumatic. NECK: Supple. No JVD. HEART: S1, S2. No murmurs. ABDOMEN: Soft, nontender. EXTREMITIES: No edema. PLAN OF CARE: The patient be followed by ID. The patient has been on meropenem, vancomycin and fluconazole. Stool culture did reveal methicillin-resistant staphylococci aureus and Pat albicans from 10 as well as 18. Continue antibiotics as advised. The patient not doing well.
--- NOTE | 2020-06-22 20:31 | Operative Report ---
DATE OF PROCEDURE: 06/22/2020 SURGEON: Jonn Dunn MD PREOPERATIVE DIAGNOSES: Respiratory insufficiency, coronavirus disease-2019, extensive subcutaneous emphysema, most marked on the right. POSTOPERATIVE DIAGNOSES: Respiratory insufficiency, coronavirus disease-2019, extensive subcutaneous emphysema, most marked on the right. OPERATIVE PROCEDURE: Insertion of right anterior chest tube. INDICATIONS: This is a 55-year-old man with severe COVID-19 in respiratory insufficiency. He has developed increasing subcutaneous emphysema of the chest, neck and face. This is most marked on the right. CT scan and chest x-ray do not show any clear pneumothorax because of the increasing subcutaneous emphysema, an additional right-sided chest tube was in place. FINDINGS: Uneventful insertion of a right chest tube. There were some adhesions of the lung to the chest wall medially. DESCRIPTION OF PROCEDURE: Procedure was done in the ICU. The patient is on intravenous sedation. The right anterior chest was sterilely prepped and draped in the usual fashion using alcohol prewash and Betadine scrub and solution. Incision was made over the 2nd intercostal space anteriorly. Dissection was carried down to the chest wall. The patient was disconnected from the ventilator briefly. The pleural cavity was entered bluntly. With digital manipulation, adhesions of the lung to the anterior chest wall were palpable medially. Laterally, there seems to be a free space without any adhesions. A 32 [place] chest tube was inserted into this lateral space and affixed in place using a 0 silk suture. Sterile dressings were applied. The chest tube was hooked up to suction and with an air leak. Chest x-ray was requested. Sterile dressings were applied. Jonn Dunn MD [facility]/MODL /[id number]
[2020-06-22] MEDS: ROCURONIUM BROMIDE 1,250 MG in SODIUM CHLORIDE 0.9% 250ML 125 ML IV SCH (22:30)
[2020-06-23] VITALS (23 sets, daily range): BP systolic 108–158; BP diastolic 54–87
[2020-06-23] MEDS: MIDAZOLAM HCL 5MG/ML 10ML VIAL 100 ML IV PRN ×5 (00:27→22:30)
[2020-06-23] MEDS: INSULIN LISPRO 100 UNIT/1 ML 3ML VIAL SQ SCH ×4 (00:47→18:34)
[2020-06-23] MEDS: FENTANYL 2000MCG/NS 250 250 ML IV PRN ×4 (01:39→22:30)
--- NOTE | 2020-06-23 01:43 | NUR ---
With assist of RT and 3 other RN's and this RN, pt was successfully placed in prone position @ 00:45. Before proning, jarquin catheter was noted to be leaking. Balloon check revealed a ruptured balloon. Jarquin catheter was exchanged with a temp probe using sterile fashion. Pt tolerating prone position.
[2020-06-23] MEDS: SODIUM CHLORIDE 0.9% 250ML IRRIG IR SCH ×5 (03:00→19:00)
[2020-06-23 06:19] LABS: BASOPHILS % 0.3 % (0.0-1.0); EOSINOPHILS # (AUTO) 0.1 (0.0-0.4); EOSINOPHILS % 0.6 % (0.0-6.0); LYMPHOCYTES # (AUTO) 1.2 (1.0-3.2); LYMPHOCYTES % 7.5 % (18.0-39.1); MEAN CORPUSCULAR HEMOGLOBIN 32.7 pg (28-32); MEAN CORPUSCULAR HGB CONC 33.3 g/dL (31-35); MONOCYTES # (AUTO) 0.9 (0.2-0.8); MONOCYTES % 5.8 % (4.4-11.3); NEUTROPHILS # (AUTO) 13.3 (2.1-6.9); NEUTROPHILS % 84.6 % (38.7-80.0); PLATELET COUNT 148 x10e3/uL (140-360); RED BLOOD COUNT 3.06 x10e6/uL (4.3-5.7); RED CELL DISTRIBUTION WIDTH 13.1 % (11.7-14.4)
[2020-06-23 06:51] LABS: ALANINE AMINOTRANSFERASE 13 IU/L (0-55); ALBUMIN 2.9 g/dL (3.5-5.0); ALBUMIN/GLOBULIN RATIO 0.7 (0.8-2.0); ALKALINE PHOSPHATASE 71 IU/L (40-150); ANION GAP 9.9 mmol/L (8-16); BLOOD UREA NITROGEN 9 mg/dL (7-26); BUN/CREATININE RATIO 18 (6-25); CALCIUM 8.6 mg/dL (8.4-10.2); CHLORIDE 83 mmol/L (98-107); CREATININE, SERUM 0.51 mg/dL (0.72-1.25); EST GLOMERULAR FILTRATION RATE > 60 ML/MIN (60-); GLUCOSE 169 mg/dL (74-118); POTASSIUM 3.9 mmol/L (3.5-5.1); SODIUM 130 mmol/L (136-145)
[2020-06-23 06:59] LABS: CARBON DIOXIDE 41 mmol/L (22-29)
[2020-06-23] MEDS: FUROSEMIDE INJ 100 MG in SODIUM CHLORIDE 0.9% 100 ML 90 ML IV SCH (07:06)
[2020-06-23 08:38] LABS: ABG PCO2 88 mmHg (35-45)
[2020-06-23 08:39] LABS: ABG HCO3 43 mmol/L (22-26); ABG PO2 74 mmHg (80-105); ABG TCO2 45
[2020-06-23] MEDS: ENOXAPARIN SOD INJ 40 MG/0.4 ML SYR SC SCH ×2 (09:10→21:44)
[2020-06-23] MEDS: CHOLECALCIFEROL 1,000 UNIT TAB PO SCH (09:10)
[2020-06-23] MEDS: LINEZOLID 600 MG/D5W 300ML 300 ML IV SCH ×2 (09:10→21:43)
[2020-06-23] MEDS: ZINC SULFATE 220 MG CAP PO SCH (09:10)
[2020-06-23] MEDS: ASCORBIC ACID 500 MG TAB PO SCH ×2 (09:10→21:44)
--- NOTE | 2020-06-23 12:02 | Diagnostic Imaging Report ---
PROCEDURE: X-RAY MODIFIED BARIUM SWALLOW COMPARISON: None. INDICATION: Aspiration Radiation Details: Fluoroscopy time: 1 minute, 9 seconds Cumulative dose: 3.9 mGy DISCUSSION: Fluoroscopic examination was performed in conjunction with speech pathology during swallowing a variety of thin and thick liquid consistencies. Provided images demonstrate no laryngeal penetration or aspiration. CONCLUSION: Modified barium swallow demonstrating no laryngeal penetration or aspiration. Please refer to the speech pathology report for further details. Signed by: Evi Davis MD on 06/23/2020 11:59 AM
--- NOTE | 2020-06-23 14:31 | Progress Note ---
DATE: SUBJECTIVE: The patient is afebrile. He still has significant subcutaneous emphysema. A new anterior right chest tube was placed yesterday. He is on a PRVC mode of ventilation at a rate of 34 with a tidal volume of 400. His FiO2 is set at 90% and his PEEP is set at 12. OBJECTIVE: HEENT: Shows no facial swelling or erythema. LYMPHATIC: Shows no submandibular, cervical, or supraclavicular adenopathy. There is an oral endotracheal tube. There is subcutaneous emphysema in the lateral chest wall. Decreased breath sounds at the bases. CARDIAC: Regular rate and rhythm with normal S1 and S2. LUNGS: Auscultation of lungs reveals rhonchorous breath sounds bilaterally. There is no wheezing. ABDOMEN: Soft and nontender. There is no rebound or guarding. EXTREMITIES: Show no leg edema or calf tenderness. There is no cyanosis or clubbing. LABORATORY DATA: White blood cell count is 15.6 and the hemoglobin is 10. The platelet count is 148. BUN to creatinine ratio is 9 to 0.51. Other electrolytes are within normal limits. Albumin is 2.9. IMPRESSION: 1. Acute respiratory failure. 2. Viral pneumonia and COVID-19 infection. 3. Methicillin-resistant Staph aureus pneumonia. 4. Pneumomediastinum and right-sided pneumothorax. 5. Anemia. 6. Thrombocytopenia. 7. Hypokalemia. PLAN: 1. Continue current ventilator settings and repeat ABG. 2. Continue chest tube to wall suction. 3. Continue Zyvox. 4. Stop Lasix drip. 5. Replace potassium. 6. Continue Lovenox. 7. Case discussed with daughter. Case also discussed with Thoracic Surgery, Infectious Disease, Internal Medicine, Respiratory, and administration. Greater than 35 minutes in direct critical care time. Brayden De Dios MD [facility]/AL /[id number]
--- NOTE | 2020-06-23 15:01 | NUR ---
Internal Medicine Progress Note Coverage for Dr. Alfred Larsen. DATE: 06/23/2020 SUBJECTIVE: lasix 5/hr iv rocuronium, fentanyl, versed 34/400/90/12 right chest tube placed yesterday for high risk intrathoracic air situation tube feeds ok REVIEW OF SYSTEMS: cannot get, intubated OBJECTIVE: VITAL SIGNS: Reviewed per the chart record. Seen in bed, on ventilator. Proned Physical exam limited due to COVID19 precautions, prone status, and need to decrease PPE use labs: per EMR IMPRESSION AND PLAN: 1. 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 Acute hypoxemic/hypercapneic respiratory failure, intubated 3. Diabetes. 4. Severe hypoalbuminemia. 5. worsening tachycardia NOS 6. mild hyperkalemia Maintain intubated per pulmonary Ventilator support, permissive hypercapnia and lung protective ventilation Sedation +/- paralytics as needed for lung and patient safety Treatment of lung disease per designated, supportive care Maintain slightly dry if tolerated Abx per ID expert. Consider stopping Intermittent chest x-rays as needed. DVT prophylaxis. On full anticoagulation with high D-dimer and high risk of .
--- NOTE | 2020-06-23 16:10 | NUR ---
Infectious disease progress note Patient seen and examined chart reviewed Patient remains in intensive care unit Chest tube, intubated Events noted The patient has increased subcutaneous emphysema on the right side. Repeat chest x-ray showed no apparent pneumo. The patient is now on a PRVC mode of ventilation at a rate of 34 with a tidal volume of 380. His FiO2 is set at 85% and his PEEP is set at 12. He is off pressors. PHYSICAL EXAMINATION:patient remains on ventilator in the intensive care unit VITAL SIGNS: The patient is afebrile. The blood pressure is 125/70, saturation is 94%. The pulse is 110. HEENT: Shows no facial swelling or erythema. he is not pale or icteric LYMPHATIC: Shows no submandibular, cervical or supraclavicular adenopathy. CARDIAC: Reveals regular rate and rhythm with normal S1 and S2. ABDOMEN: Soft and nontender. There is no rebound or guarding. He has no leg edema or calf tenderness. LABORATORY DATA: White blood cell count is 9.05 and the hemoglobin is 9.7. The platelet count is 140. The BUN to creatinine ratio is normal. The other electrolytes are within normal limits. Potassium is 3.4. IMPRESSION: 1. Acute respiratory failure. 2. Viral pneumonia and COVID-19 infection. 3. Methicillin-resistant Staph aureus pneumonia. 4. Pneumomediastinum and right-sided pneumothorax. 5. Anemia. 6. Thrombocytopenia. 7. Hypokalemia. please refer to the orders discussed with the medical team leukocytosis Continue with supportive care prognosis remains very guarded
[2020-06-23 17:30] LABS: ABG HCO3 47 mmol/L (22-26); ABG PCO2 97 mmHg (35-45); ABG PH 7.29 (7.35-7.45); ABG PO2 78 mmHg (80-105); ABG TCO2 50
[2020-06-24] VITALS (25 sets, daily range): BP systolic 97–167; BP diastolic 59–82
[2020-06-24] MEDS: FUROSEMIDE INJ 100 MG in SODIUM CHLORIDE 0.9% 100 ML 90 ML IV SCH ×2 (01:18→09:17)
[2020-06-24] MEDS: INSULIN LISPRO 100 UNIT/1 ML 3ML VIAL SQ SCH ×4 (01:45→18:31)
[2020-06-24] MEDS: ROCURONIUM BROMIDE 1,250 MG in SODIUM CHLORIDE 0.9% 250ML 125 ML IV SCH (04:00)
[2020-06-24] MEDS: FENTANYL 2000MCG/NS 250 250 ML IV PRN ×3 (05:04→18:32)
[2020-06-24] MEDS: MIDAZOLAM HCL 5MG/ML 10ML VIAL 100 ML IV PRN ×4 (05:05→22:57)
[2020-06-24 05:07] LABS: BASOPHILS % 0.1 % (0.0-1.0); EOSINOPHILS # (AUTO) 0.1 (0.0-0.4); EOSINOPHILS % 0.4 % (0.0-6.0); HEMATOCRIT 27.9 % (38.2-49.6); HEMOGLOBIN 9.3 g/dL (14.0-18.0); LYMPHOCYTES # (AUTO) 1.2 (1.0-3.2); LYMPHOCYTES % 8.4 % (18.0-39.1); MEAN CORPUSCULAR HEMOGLOBIN 32.2 pg (28-32); MEAN CORPUSCULAR HGB CONC 33.3 g/dL (31-35); MEAN CORPUSCULAR VOLUME 96.5 fL (81-99); MONOCYTES # (AUTO) 0.9 (0.2-0.8); MONOCYTES % 6.5 % (4.4-11.3); NEUTROPHILS # (AUTO) 11.7 (2.1-6.9); NEUTROPHILS % 83.6 % (38.7-80.0); PLATELET COUNT 153 x10e3/uL (140-360); RED BLOOD COUNT 2.89 x10e6/uL (4.3-5.7); RED CELL DISTRIBUTION WIDTH 13.1 % (11.7-14.4)
[2020-06-24 05:28] LABS: ALANINE AMINOTRANSFERASE 12 IU/L (0-55); ALBUMIN 2.5 g/dL (3.5-5.0); ALBUMIN/GLOBULIN RATIO 0.6 (0.8-2.0); ALKALINE PHOSPHATASE 69 IU/L (40-150); ANION GAP 11.3 mmol/L (8-16); BLOOD UREA NITROGEN 9 mg/dL (7-26); BUN/CREATININE RATIO 17 (6-25); CALCIUM 8.4 mg/dL (8.4-10.2); CHLORIDE 81 mmol/L (98-107); CREATININE, SERUM 0.54 mg/dL (0.72-1.25); EST GLOMERULAR FILTRATION RATE > 60 ML/MIN (60-); GLUCOSE 173 mg/dL (74-118); POTASSIUM 3.3 mmol/L (3.5-5.1); SODIUM 132 mmol/L (136-145)
--- NOTE | 2020-06-24 05:29 | Diagnostic Imaging Report ---
EXAMINATION: CHEST SINGLE (PORTABLE) INDICATION: resp. failure COMPARISON: CT and chest radiograph from June 22, 2020. FINDINGS: 2 chest tubes project over the mid right hemithorax. Extensive chest wall emphysema limits evaluation for tiny pneumothoraces. No definite pneumothorax. Endotracheal tube is 6.5 cm above the tee. Enteric tube courses below the diaphragm. Extensive pneumomediastinum, as seen on prior. The tip of a right PICC projects over the distal SVC.. Unchanged cardiomegaly. Hazy opacity at the left lung base likely correlates with pleural effusion seen on prior chest CT. Otherwise, unchanged diffuse interstitial and patchy opacities throughout both lungs IMPRESSION: 1. Interval placement of a second right chest tube which curves inferiorly projecting over the mid left hemithorax. No definite pneumothorax within the limitations of the exam. 2. Extensive chest wall emphysema and similar pneumomediastinum as seen on prior. 3. Diffuse interstitial and patchy airspace opacities with small moderate left pleural effusion, unchanged Signed by: Jeison Mckeon MD on 06/24/2020 5:25 AM
[2020-06-24 05:43] LABS: CARBON DIOXIDE 43 mmol/L (22-29)
[2020-06-24] MEDS: ACETAMINOPHEN 325 MG TAB PO PRN (06:40)
[2020-06-24] MEDS ORDERED: POTASSIUM CHLORIDE 20MEQ/15ML UDC NG SCH (08:30)
--- NOTE | 2020-06-24 08:43 | Diagnostic Imaging Report ---
EXAM: CHEST SINGLE (PORTABLE) DATE: 06/24/2020 6:55 AM INDICATION: Respiratory failure, hypoxia COMPARISON: 06/23/2020 FINDINGS: Endotracheal tube, right-sided chest tubes, and right-sided PICC line identified in stable position. Enteric tube noted coursing below the diaphragm. Again identified are extensive patchy airspace opacities throughout the lungs bilaterally. Trace left pleural effusion is possible. There is no evidence for significant pneumothorax or significant volume pleural effusion. The cardiomediastinal silhouette is stable in appearance. Extensive subphase emphysema again noted, similar to the prior examination. IMPRESSION: No significant interval change from 06/23/2020. Signed by: Dr. Sergei Hudson MD on 06/24/2020 8:40 AM
[2020-06-24] MEDS ORDERED: ENOXAPARIN SOD INJ 40 MG/0.4 ML SYR SC SCH (09:00)
[2020-06-24] MEDS: LINEZOLID 600 MG/D5W 300ML 300 ML IV SCH ×2 (09:16→21:44)
[2020-06-24] MEDS: ZINC SULFATE 220 MG CAP PO SCH (09:16)
[2020-06-24] MEDS: CHOLECALCIFEROL 1,000 UNIT TAB PO SCH (09:16)
[2020-06-24] MEDS: ACETAZOLAMIDE SODIUM 500 MG/VIAL IV SCH ×2 (09:16→21:43)
[2020-06-24] MEDS: ASCORBIC ACID 500 MG TAB PO SCH ×2 (09:16→21:44)
--- NOTE | 2020-06-24 09:33 | Progress Note ---
DATE: SUBJECTIVE: The patient had more desaturations last night. He was placed back in the prone position. His ventilator was changed to pressure control at a rate of 36 with a PEEP of 10 and a pressure above 14 with pressure above PEEP of 20. The FiO2 is still at 100%. PHYSICAL EXAMINATION: VITAL SIGNS: The patient is afebrile. The blood pressure is 122/70, saturation is 83% on the above settings. Heart rate is 128. HEENT: Shows no facial swelling or erythema. The oropharynx is normal. There is an oral endotracheal tube. LYMPHATIC: Shows no submandibular, cervical, or supraclavicular adenopathy. CARDIAC: Reveals a regular rate and rhythm with normal S1 and S2. LUNGS: Auscultation of lungs reveals rhonchorous breath sounds bilaterally. There is no wheezing. ABDOMEN: Soft and nontender. There is no rebound or guarding. There is subcutaneous emphysema on the chest wall, more on the right than the left. There is no leg edema. LABORATORY DATA: White blood cell count is 13.9 and hemoglobin is 9.3. The platelet count is 153. The BUN to creatinine ratio is 9 to 0.54 and the potassium is 3.9. His sodium is 132 and the albumin is 2.5. RADIOGRAPHIC DATA: Chest x-ray shows no significant change. He still has extensive subcutaneous emphysema and bilateral infiltrates. MICROBIOLOGICAL DATA: Sputum from the 18 is growing out MRSA. IMPRESSION: 1. Acute respiratory failure. 2. Viral pneumonia and COVID-19 infection. 3. Pneumomediastinum and right-sided pneumothorax with extensive subcutaneous emphysema. 4. Resolving methicillin-resistant Staph aureus pneumonia. 5. Anemia. 6. Thrombocytopenia. 7. Hypokalemia. PLAN: 1. Continue pressure control and repeat ABG. 2. Continue chest tubes to wall suction. 3. Complete Zyvox. 4. Restart Lasix drip. 5. Continue Lovenox. 6. Replace potassium. 7. Family came to visit yesterday evening. 8. Greater than 35 minutes in direct critical care time. 9. Case discussed with nightshift nursing, dayshift nursing, Respiratory, Internal Medicine, Infectious Disease, administration, and family. MD BRAYAN Rodriguez/AL /[id number]
[2020-06-24] MEDS: BISACODYL 10 MG SUPP PR PRN (09:34)
[2020-06-24] MEDS: ENOXAPARIN INJ 80 MG/0.8 ML SYR SC SCH ×2 (10:03→21:44)
[2020-06-24] MEDS ORDERED: SODIUM CHLORIDE 0.9% 250ML 250 ML ONE (10:07)
[2020-06-24 10:33] LABS: ABG HCO3 48 mmol/L (22-26); ABG PCO2 78 mmHg (35-45); ABG PO2 51 mmHg (80-105); ABG TCO2 > 50
[2020-06-24 11:28] LABS: ABG HCO3 45 mmol/L (22-26); ABG PCO2 82 mmHg (35-45); ABG PH 7.34 (7.35-7.45); ABG PO2 51 mmHg (80-105); ABG TCO2 19
[2020-06-24] MEDS: ALBUMIN 25% 25GM 100ML 0.25 GM/ML BTL IV SCH ×2 (12:00→18:07)
[2020-06-24] MEDS ORDERED: WATER STERILE 10 ML VIAL ONE ×2 (14:54→14:55)
[2020-06-24] MEDS ORDERED: VECURONIUM BROMIDE FOR INJ 20 MG VIAL ONE ×2 (14:54→14:55)
--- NOTE | 2020-06-24 15:54 | NUR ---
Nutrition Intervention Note RD Recommendation(s) for Physician: -Continue Vital AF 1.2 and increase towards goal rate of 60 mL/hr (provides 1728 kcal, 108 g protein). Pt may be fed at goal rate when prone in reverse Trendelenburg position with HOB 10-25 degrees -Fluid management per MD. -TF not meeting needs > 7 days, if unable to advance to goal rate in 24-48 hrs recommend TPN. Standard TPN at 42 ml/hr of (D30W/500ml), (AA10%/500ml), Lipids 25 g/day, standard lytes per current lab trend, MVI, trace, thiamine. Plan of Care: RD following, monitoring for tolerance and adequacy, TF and TPN rec's Nutrition reason for involvement: follow up RD Assessment 06/24: Follow up. Chart reviewed. Pt remains intubated and is in the prone position. Pts tube feeding is at 35 mL/hr per documentation. Recommend increasing towards goal rate of 60 mL/hr. Pt may be fed at goal rate when prone in reverse Trendelenburg position with HOB 10-25 degrees. BM still not documented. Will continue to monitor. 06/20: Follow up. Chart reviewed. Pt remains intubated. TF is infusing at 30 mL/her per chart. Recommend increasing towards goal as medically appropriate. BM still not documented. Will continue to monitor. 06/15: Follow up. Pt remains intubated, sedated, and paralyzed. Pt requiring intermittent proning. TF of Glucerna 1.2 infusing at 10 ml/hr- pt tolerating trickle feeds, however not meeting needs. Pt with no documented BM since initiation of TF, no flatus and hypoactive BS currently. RD to manage TF order per Dr. De Dios. TPN rec's provided pending inability to advance TF to goal rate. 06/10: Early follow up due to initiation of enteral nutrition. Pt is now intubated and tube feed order was placed yesterday per chart. Tube feed recommendations provided. Will continue to monitor (06/06/20) Chart reviewed. Labs and meds reviewed. RD received consult for nutrition assessment. Pt is a 55 year old male admitted with acute respiratory distress and COVID-19. Pt is in the COVID ICU and RD is unable to enter room due to isolation precautions. RD called pt's nurse over the phone. RN stated pt is eating well and is consuming >50% of meals. Speech therapy evaluated pt and recommended a nectar thick liquid diet at this time and a modified barium swallow study be performed to rule out aspiration. Will continue to monitor Principal Problems/Diagnoses: acute respiratory distress, COVID-19 PMH: Diabetes. I/O: 3123/3430 GI: no flatus, no BM recorded; + NGT Skin: suspected DTI L cheek Labs: 06/24: Na 132, K 3.3, Cr 0.54, Glu 173, Ca 8.4 (06/20) Na 137, K 3.9, BUN 11, Cr 0.43, Glu 142, Ca 8.3 06/15: Na 138, K 4.3, BUN 17, Cr 0.54, Gluc 187, POC Gluc 184-204 06/14: CRP 96 (06/10) Na 133, K 4.4, BUN 15, Cr 0.67, Glu 295, Ca 7.7 Meds: insulin, furosemide, antibiotic, vitamin C, zinc sulfate, vitamin D, rocuronium Ht: 70 in Wt: 171.06 (06/17) 171 lbs (06/15) 172 lbs(06/09) 170 lb (06/06) BMI: 24.4 kg/m2 using wt of 170 lbs IBW:166 lb Malnutrition Evaluation (06/24/20) The patient does not meet criteria for a specified degree of malnutrition at this time. Unable to perform NFPE at this time. Will re-evaluate at follow-up as appropriate. Intake adequacy: Acute moderate- TF meeting <50% of estimated needs > 7 days Wt loss: None- no wt loss is evident Fat loss: DEMETRIO 2/2 COVID ICU isolation precautions Muscle loss: DEMETRIO 2/2 COVID ICU isolation precautions Edema: no edema per documentation Functional status: DEMETRIO, pt intubated and sedated in [facility] ICU Nutrition Prescription (Diet Order): Vital AF 1.2 @ 60 mL/hr infusing at 35 mL/hr (provides 1008 kcal, 63 g protein) Estimated Nutritional Needs: 5897-4718 calories/day (20-25 kcal/kg CBW) 93-155 g protein/day (1.2-2 g pro/kg CBW) Diet Adequacy: Not meeting calorie needs, Not meeting protein needs Tolerance: Tolerating TF Diet Education Needs Assessment: Diet education not indicated, pt is intubated Nutrition Care Level: high- not meeting needs Nutrition Diagnosis: Inadequate oral intake related to acute respiratory failure/mechanical ventilation as evidenced by need for enteral nutrition. Goal: Patient will meet 75-100% of estimated needs by follow up Progress: goal not met Interventions: -Composition, Rate, Route Monitoring/Evaluation: -Total energy intake, Total protein intake, Formula/Solution, Weight change Signed: Venessa Green RD, LD
--- NOTE | 2020-06-24 16:49 | NUR ---
Infectious disease progress note Patient seen and examined chart reviewed Patient remains in intensive care unit Chest tube, intubated Infectious disease progress note Patient seen and examined chart reviewed Patient remains in intensive care unit Chest tube, intubated Events noted The patient has increased subcutaneous emphysema on the right side. Repeat chest x-ray showed no apparent pneumo. The patient is now on a PRVC mode of ventilation at a rate of 34 with a tidal volume of 380. His FiO2 is set at 85% and his PEEP is set at 12. He is off pressors. PHYSICAL EXAMINATION:patient remains on ventilator in the intensive care unit VITAL SIGNS: The patient is afebrile. The blood pressure is 125/70, saturation is 94%. The pulse is 110. HEENT: Shows no facial swelling or erythema. he is not pale or icteric LYMPHATIC: Shows no submandibular, cervical or supraclavicular adenopathy. CARDIAC: Reveals regular rate and rhythm with normal S1 and S2. ABDOMEN: Soft and nontender. There is no rebound or guarding. He has no leg edema or calf tenderness. Events noted The patient has increased subcutaneous emphysema on the right side. He is off pressors. PHYSICAL EXAMINATION:patient remains on ventilator in the intensive care unit VITAL SIGNS: The patient is afebrile. The blood pressure is 125/70, saturation is 94%. The pulse is 110. HEENT: Shows no facial swelling or erythema. he is not pale or icteric LYMPHATIC: Shows no submandibular, cervical or supraclavicular adenopathy. CARDIAC: Reveals regular rate and rhythm with normal S1 and S2. ABDOMEN: Soft and nontender. There is no rebound or guarding. He has no leg edema or calf tenderness. RADIOGRAPHIC DATA: Chest x-ray shows no significant change. He still has extensive subcutaneous emphysema and bilateral infiltrates. MICROBIOLOGICAL DATA: Sputum from the 18th is growing out MRSA. IMPRESSION: 1. Acute respiratory failure. 2. Viral pneumonia and COVID-19 infection. 3. Pneumomediastinum and right-sided pneumothorax with extensive subcutaneous emphysema. 4. Resolving methicillin-resistant Staph aureus pneumonia. 5. Anemia. 6. Thrombocytopenia. 7. Hypokalemia. continue as ordered
--- NOTE | 2020-06-24 18:10 | Progress Note ---
DATE: 06/24/2020 REASON FOR PROGRESS NOTE: Respiratory insufficiency, COVID-19, pneumothorax; requested by Dr. August De Dios. SUBJECTIVE: The patient continues to have desaturation. He was placed back in the prone position. The ventilator with pressure control at rate of 36 with PEEP of 10, FiO2 of 100%, O2 saturation 85%. REVIEW OF SYSTEMS: Unavailable because the patient is intubated. PHYSICAL EXAMINATION: VITAL SIGNS: Blood pressure 130/70. O2 saturation 85%. Pulse 100 and regular. HEENT: Subcutaneous emphysema on the neck. More marked on the right side of the face. Mucous membranes moist. NECK: Supple, nontender. Subcutaneous emphysema present and stable. CARDIAC EXAMINATION: Regular rate and rhythm. Normal S1, S2. No rub or murmur. LUNGS: Coarse ventilator sounds bilaterally. Extensive subcutaneous emphysema present over both right and left chest. Right subcutaneous emphysema is greater than the left. ABDOMEN: Globoid. Benign. Hypoactive bowel sounds. CHEST TUBES: Right-sided chest tube has minimal air leak. This is for both tubes. LABORATORIES AND IMAGING: Chest x-ray shows fully expanded lungs with extensive subcutaneous emphysema. The chest tube is well positioned. IMPRESSION: Severe respiratory insufficiency and underlying parenchymal lung disease. Subcutaneous emphysema seems to be stable with the two chest tubes in place. We will continue to follow. Jonn Dunn MD GVL/MODL /[id number]
[2020-06-24] MEDS ORDERED: HEPARIN SOD/SOD CHLORIDE 1,000 ML IV PRN (20:30)
--- NOTE | 2020-06-24 22:01 | Progress Note ---
DATE: 06/24/2020 Interval note: Events noted and the patient presently is on the vent. He has been followed by clinical care, Dr. De Dios. Vent settings noted, FiO2 still at 100%, PEEP 10, and pressure above 14 with pressure above PEEP of 20. The patient condition was discussed with nursing staff. Unfortunately he has not done well. He desaturated down to 80% this a.m. OBJECTIVE: GENERAL: The patient's event as mentioned, the examination is unchanged. VITAL SIGNS: Blood pressure 136/76, respirations 36, and pulse 128. Physical exam: The patient is on prone position. Patient intubated. LABORATORY DATA: Disclosed hemoglobin 9.3, white blood cell count 13.9, and platelet count 153,000. Chem profile reviewed; sodium 132, potassium 3.3, chloride 81, CO2 of 23, BUN 9, and creatinine 0.54. Assessment: 1. Acute respiratory failure. 2. COVID-19 infection with pneumonia. 3. Methicillin-resistant staph aureus pneumonia 4. Pneumomediastinum with right-sided pneumothorax. 5. Anemia. 5. Thrombocytopenia. 6. Diabetes mellitus type 2 and events noted. 7. Hypokalemia. PLAN OF CARE: The patient not doing well. Events noted. Continue chest tube to wall suction. Continue antibiotics as per ID on Zyvox. Lasix drip. Lovenox. Thoracic surgery following the patient pertaining pneumothorax. Follow-up labs. Patient tolerated has been advised about condition by critical care team. MD PENNY Kraus/AL /[id number] MTDD
[2020-06-25] VITALS (24 sets, daily range): BP systolic 75–142; BP diastolic 56–75
[2020-06-25] MEDS: ALBUMIN 25% 25GM 100ML 0.25 GM/ML BTL IV SCH (00:12)
[2020-06-25] MEDS: INSULIN LISPRO 100 UNIT/1 ML 3ML VIAL SQ SCH ×4 (00:37→18:20)
[2020-06-25] MEDS: MIDAZOLAM HCL 5MG/ML 10ML VIAL 100 ML IV PRN ×4 (04:30→21:00)
[2020-06-25 05:32] LABS: BASOPHILS # (AUTO) 0.1 (0.0-0.1); BASOPHILS % 0.2 % (0.0-1.0); EOSINOPHILS % 0.1 % (0.0-6.0); HEMATOCRIT 25.7 % (38.2-49.6); HEMOGLOBIN 8.4 g/dL (14.0-18.0); LYMPHOCYTES # (AUTO) 1.2 (1.0-3.2); LYMPHOCYTES % 4.5 % (18.0-39.1); MEAN CORPUSCULAR HEMOGLOBIN 31.2 pg (28-32); MEAN CORPUSCULAR HGB CONC 32.7 g/dL (31-35); MEAN CORPUSCULAR VOLUME 95.5 fL (81-99); MONOCYTES # (AUTO) 1.2 (0.2-0.8); MONOCYTES % 4.6 % (4.4-11.3); NEUTROPHILS % 89.1 % (38.7-80.0); PLATELET COUNT 160 x10e3/uL (140-360); RED BLOOD COUNT 2.69 x10e6/uL (4.3-5.7); RED CELL DISTRIBUTION WIDTH 13.5 % (11.7-14.4)
[2020-06-25 05:57] LABS: ALANINE AMINOTRANSFERASE 12 IU/L (0-55); ALBUMIN 3.3 g/dL (3.5-5.0); ALBUMIN/GLOBULIN RATIO 0.9 (0.8-2.0); ALKALINE PHOSPHATASE 91 IU/L (40-150); ANION GAP 9.7 mmol/L (8-16); BLOOD UREA NITROGEN 11 mg/dL (7-26); BUN/CREATININE RATIO 20 (6-25); CALCIUM 8.7 mg/dL (8.4-10.2); CHLORIDE 82 mmol/L (98-107); CREATININE, SERUM 0.54 mg/dL (0.72-1.25); EST GLOMERULAR FILTRATION RATE > 60 ML/MIN (60-); GLUCOSE 166 mg/dL (74-118); SODIUM 131 mmol/L (136-145)
[2020-06-25 06:21] LABS: CARBON DIOXIDE 42 mmol/L (22-29); POTASSIUM 2.7 mmol/L (3.5-5.1)
[2020-06-25] MEDS ORDERED: POTASSIUM CHLORIDE 20MEQ/15ML UDC NG STA (06:59)
[2020-06-25] MEDS ORDERED: POTASSIUM CHLORIDE 20MEQ/100ML 200 ML IV ONE ×2 (07:30→16:00)
[2020-06-25 07:31] LABS: BAND NEUTROPHILS % (MANUAL) 7 %; LYMPHOCYTES % (MANUAL) 4 % (19-48); METAMYELOCYTES % (MANUAL) 2 % (0-0); MONOCYTES % (MANUAL) 5 % (3.4-9.0); NEUTROPHILS % (MANUAL) 82 % (40-74); RBC MORPHOLOGY COMMENT ABNORMAL
[2020-06-25 07:32] LABS: ANISOCYTOSIS SLIGHT; PLATELET ESTIMATE ADEQUATE; PLATELET MORPHOLOGY COMMENT NORMAL
[2020-06-25] MEDS: FENTANYL 2000MCG/NS 250 250 ML IV PRN ×2 (08:10→14:28)
[2020-06-25] MEDS: ENOXAPARIN INJ 80 MG/0.8 ML SYR SC SCH ×2 (08:13→21:00)
[2020-06-25] MEDS: CHOLECALCIFEROL 1,000 UNIT TAB PO SCH (08:13)
[2020-06-25] MEDS: ROCURONIUM BROMIDE 1,250 MG in SODIUM CHLORIDE 0.9% 250ML 125 ML IV SCH (08:13)
[2020-06-25] MEDS: LINEZOLID 600 MG/D5W 300ML 300 ML IV SCH ×2 (08:13→21:00)
[2020-06-25] MEDS: ZINC SULFATE 220 MG CAP PO SCH (08:13)
[2020-06-25] MEDS: ASCORBIC ACID 500 MG TAB PO SCH ×2 (08:13→21:00)
[2020-06-25] MEDS: BISACODYL 10 MG SUPP PR PRN (08:14)
[2020-06-25] MEDS ORDERED: SODIUM CHLORIDE 0.9% 250ML 250 ML ONE (08:14)
[2020-06-25 09:02] LABS: ABG HCO3 40 mmol/L (22-26); ABG PCO2 77 mmHg (35-45); ABG PH 7.33 (7.35-7.45); ABG PO2 68 mmHg (80-105); ABG TCO2 43
[2020-06-25] MEDS ORDERED: POTASSIUM CHLORIDE 20MEQ/100ML 100 ML IV PRN (09:45)
[2020-06-25 11:43] LABS: CLARITY,URINE HAZY (CLEAR); COLOR,URINE YELLOW (YELLOW); LEUKOCYTE ESTERASE ,URINE NEGATIVE (NEGATIVE); NITRITE,URINE NEGATIVE (NEGATIVE)
[2020-06-25 11:44] LABS: BILIRUBIN,URINE NEGATIVE (NEGATIVE); KETONES,URINE NEGATIVE (NEGATIVE); PROTEIN,URINE DIPSTICK TRACE (NEGATIVE); URINE UROBILINOGEN 0.2 mg/dL (0.2 - 1)
[2020-06-25 11:56] LABS: BACTERIA,URINE FEW /HPF; EPITHELIAL CELLS,URINE FEW /LPF; MUCUS,URINE FEW (RARE); RBC,URINE 0-5 /HPF (0-5); WBC,URINE (MAN) 0-5 /HPF (0-5)
--- NOTE | 2020-06-25 12:21 | Diagnostic Imaging Report ---
EXAMINATION: CHEST SINGLE (PORTABLE) INDICATION:resp failure COMPARISON: Multiple prior chest x-rays including most recent on 06/24/2020. FINDINGS: TUBES and LINES: Right chest tube, endotracheal tube, subdiaphragmatic enteric tube, right PICC are all unchanged. LUNGS: No significant interval change in multifocal interstitial and airspace opacities throughout both lungs. PLEURA: Small left pleural effusion. No pneumothorax. HEART AND MEDIASTINUM: The cardiomediastinal silhouette is unchanged. BONES AND SOFT TISSUES: No acute osseous lesion. Extensive subcutaneous emphysema is again noted. UPPER ABDOMEN: No free air under the diaphragm. IMPRESSION: 1. No significant interval change in multifocal interstitial and airspace opacities throughout both lungs. 2. Redemonstration of extensive subcutaneous emphysema. 3. Stable support lines as above. Signed by: Herminia Nowak MD on 06/25/2020 12:17 PM
[2020-06-25] MEDS: MEROPENEM 1GM 100 ML IV SCH ×2 (14:26→22:00)
[2020-06-25] MEDS: FUROSEMIDE INJ 100 MG in SODIUM CHLORIDE 0.9% 100 ML 90 ML IV SCH (15:52)
[2020-06-25 15:56] LABS: ABG HCO3 10 mmol/L (22-26); ABG PCO2 81 mmHg (35-45); ABG PO2 58 mmHg (80-105); ABG TCO2 43
--- NOTE | 2020-06-25 16:05 | NUR ---
SUPINED Pt @ 1300 WAS UNABLE TO TOLERATE IT. SPO2 BEGAN TO GO DOWN- PRONED Pt 1415
[2020-06-25] MEDS: LACTULOSE SYRUP 20 GM/30 ML UDC PO PRN (17:36)
[2020-06-25] MEDS: ACETAMINOPHEN 325 MG TAB PO PRN (17:36)
[2020-06-25 19:03] LABS: BASOPHILS # (AUTO) 0.1 (0.0-0.1); BASOPHILS % 0.3 % (0.0-1.0); EOSINOPHILS % 0.1 % (0.0-6.0); HEMATOCRIT 26.8 % (38.2-49.6); HEMOGLOBIN 8.7 g/dL (14.0-18.0); LYMPHOCYTES # (AUTO) 0.8 (1.0-3.2); LYMPHOCYTES % 2.4 % (18.0-39.1); MEAN CORPUSCULAR HEMOGLOBIN 31.5 pg (28-32); MEAN CORPUSCULAR HGB CONC 32.5 g/dL (31-35); MEAN CORPUSCULAR VOLUME 97.1 fL (81-99); MONOCYTES # (AUTO) 1.3 (0.2-0.8); MONOCYTES % 3.7 % (4.4-11.3); NEUTROPHILS # (AUTO) 31.1 (2.1-6.9); NEUTROPHILS % 89.5 % (38.7-80.0); PLATELET COUNT 197 x10e3/uL (140-360); RED BLOOD COUNT 2.76 x10e6/uL (4.3-5.7); RED CELL DISTRIBUTION WIDTH 13.9 % (11.7-14.4)
[2020-06-25 19:07] LABS: ABG HCO3 40 mmol/L (22-26); ABG PCO2 82 mmHg (35-45); ABG PO2 62 mmHg (80-105)
[2020-06-25 19:08] LABS: ABG TCO2 43
[2020-06-25 19:19] LABS: ANION GAP 11.8 mmol/L (8-16); BLOOD UREA NITROGEN 12 mg/dL (7-26); BUN/CREATININE RATIO 20 (6-25); CALCIUM 8.6 mg/dL (8.4-10.2); CARBON DIOXIDE 40 mmol/L (22-29); CHLORIDE 85 mmol/L (98-107); EST GLOMERULAR FILTRATION RATE > 60 ML/MIN (60-); GLUCOSE 174 mg/dL (74-118); POTASSIUM 3.8 mmol/L (3.5-5.1); SODIUM 133 mmol/L (136-145)
[2020-06-25] MEDS ORDERED: ALBUMIN 25% 12.5GM 0.25 GM/ML BTL IV ONE (19:30)
[2020-06-25] MEDS ORDERED: NOREPINEPHRINE 8 MG/D5W 250 ML 250 ML IV PRN (20:00)
--- NOTE | 2020-06-25 20:14 | Progress Note ---
DATE: 06/25/2020 SUBJECTIVE: The patient has been critically ill. He remains on the ventilator. The patient is still in supine position. PHYSICAL EXAMINATION: VITAL SIGNS: Blood pressure 126/58, pulse 131, temperature 100.5. The patient is being followed up by ID, podiatry surgeon as well as Dr. Brayden De Dios. The patient's prognosis not good and continue supportive care as it has been advised. MD PENNY Kraus/AL /[id number]
[2020-06-25] MEDS: FLUCONAZOLE 200 MG/100 ML 100 ML IV SCH (20:15)
[2020-06-25] MEDS ORDERED: MAGNESIUM SULFATE 2GM/50ML 50 ML IV ONE (20:30)
[2020-06-25] MEDS ORDERED: POTASSIUM CHLORIDE 20MEQ/100ML 100 ML IV ONE (20:30)
[2020-06-25] MEDS ORDERED: FLUCONAZOLE 200 MG/100 ML 100 ML IV ONE (20:31)
[2020-06-25] MEDS: BALSAM PERU/CASTOR OIL 60 GM OINT...G. TP SCH (21:00)
[2020-06-26] VITALS (26 sets, daily range): BP systolic 74–128; BP diastolic 55–72
[2020-06-26] MEDS: INSULIN LISPRO 100 UNIT/1 ML 3ML VIAL SQ SCH ×4 (00:45→18:08)
[2020-06-26] MEDS: FENTANYL 2000MCG/NS 250 250 ML IV PRN ×4 (00:45→22:00)
[2020-06-26] MEDS: MIDAZOLAM HCL 5MG/ML 10ML VIAL 100 ML IV PRN ×5 (02:28→23:11)
[2020-06-26] MEDS: FUROSEMIDE INJ 100 MG in SODIUM CHLORIDE 0.9% 100 ML 90 ML IV SCH ×2 (03:11→07:38)
[2020-06-26] MEDS: MEROPENEM 1GM 100 ML IV SCH ×3 (06:00→22:38)
[2020-06-26 06:22] LABS: BASOPHILS # (AUTO) 0.1 (0.0-0.1); BASOPHILS % 0.2 % (0.0-1.0); EOSINOPHILS % 0.2 % (0.0-6.0); HEMATOCRIT 24.1 % (38.2-49.6); HEMOGLOBIN 7.9 g/dL (14.0-18.0); LYMPHOCYTES # (AUTO) 1.5 (1.0-3.2); LYMPHOCYTES % 6.2 % (18.0-39.1); MEAN CORPUSCULAR HEMOGLOBIN 32.2 pg (28-32); MEAN CORPUSCULAR HGB CONC 32.8 g/dL (31-35); MEAN CORPUSCULAR VOLUME 98.4 fL (81-99); MONOCYTES # (AUTO) 1.2 (0.2-0.8); MONOCYTES % 5.1 % (4.4-11.3); NEUTROPHILS # (AUTO) 20.9 (2.1-6.9); NEUTROPHILS % 86.7 % (38.7-80.0); PLATELET COUNT 152 x10e3/uL (140-360); RED BLOOD COUNT 2.45 x10e6/uL (4.3-5.7); RED CELL DISTRIBUTION WIDTH 13.9 % (11.7-14.4)
[2020-06-26 06:50] LABS: ALANINE AMINOTRANSFERASE 45 IU/L (0-55); ALBUMIN 3.2 g/dL (3.5-5.0); ALBUMIN/GLOBULIN RATIO 0.9 (0.8-2.0); ALKALINE PHOSPHATASE 84 IU/L (40-150); ANION GAP 11.7 mmol/L (8-16); BUN/CREATININE RATIO 23 (6-25); CALCIUM 8.3 mg/dL (8.4-10.2); CARBON DIOXIDE 37 mmol/L (22-29); CHLORIDE 86 mmol/L (98-107); CREATININE, SERUM 0.95 mg/dL (0.72-1.25); EST GLOMERULAR FILTRATION RATE > 60 ML/MIN (60-); GLUCOSE 191 mg/dL (74-118); POTASSIUM 3.7 mmol/L (3.5-5.1); SODIUM 131 mmol/L (136-145)
[2020-06-26 06:55] LABS: BLOOD UREA NITROGEN 22 mg/dL (7-26)
[2020-06-26] MEDS ORDERED: POTASSIUM CHLORIDE 20MEQ/100ML 200 ML IV ONE (07:15)
[2020-06-26] MEDS: LACTULOSE SYRUP 20 GM/30 ML UDC PO PRN (07:38)
[2020-06-26] MEDS: ASCORBIC ACID 500 MG TAB PO SCH ×2 (07:39→22:37)
[2020-06-26] MEDS: ENOXAPARIN INJ 80 MG/0.8 ML SYR SC SCH ×2 (07:39→22:37)
[2020-06-26] MEDS: BALSAM PERU/CASTOR OIL 60 GM OINT...G. TP SCH ×2 (07:39→22:37)
[2020-06-26] MEDS: ZINC SULFATE 220 MG CAP PO SCH (07:39)
[2020-06-26] MEDS: CHOLECALCIFEROL 1,000 UNIT TAB PO SCH (07:39)
[2020-06-26 07:55] LABS: ABG HCO3 35 mmol/L (22-26); ABG PCO2 75 mmHg (35-45); ABG PH 7.28 (7.35-7.45); ABG PO2 75 mmHg (80-105); ABG TCO2 38
[2020-06-26 08:20] LABS: PLATELET ESTIMATE MODERATELY DECREASED
[2020-06-26] MEDS ORDERED: FAMOTIDINE 20 MG/2 ML VIAL IV SCH (09:00)
--- NOTE | 2020-06-26 09:41 | Progress Note ---
DATE: SUBJECTIVE: The patient desaturated yesterday after being placed in the supine position briefly. He was placed back in the prone position. His saturations remained low and his PEEP was increased to 16. His pressure above PEEP was increased to 22. His saturations gradually returned to the low 90s. The patient required additional albumin for borderline hypotension last night. Levophed was never required. He is having some difficulty tolerating his enteral feedings and the enteral feedings were decreased to 30 mL an hour. PHYSICAL EXAMINATION: VITAL SIGNS: Blood pressure is 104/67, saturation is 95% and the pulse is 110 to 115. The patient is afebrile. He is on the pressure control at a rate of 36 with FiO2 of 100%. His PEEP is now 14 and pressure above PEEP is set at 20. HEENT: Shows some facial swelling and edema. He has an oral endotracheal tube. He has a PICC line in place. He has subcutaneous emphysema in the neck and chest. CARDIAC: Reveals regular rate and rhythm with a normal S1 and S2. LUNGS: Auscultation of lungs reveals crackles and rhonchi at the bases. ABDOMEN: Soft and nontender. There is no rebound or guarding. EXTREMITIES: Shows 1 to 2+ leg edema. LABORATORY DATA: White blood cell count is 24. The hemoglobin is 7.4. The platelet count is 152. The BUN to creatinine ratio is 22 to 0.95 and the sodium is 131. Albumin is 3.2. RADIOGRAPHIC DATA: Chest x-ray shows bilateral infiltrates and extensive subcutaneous emphysema. IMPRESSION: 1. Acute respiratory failure. 2. Viral pneumonia and COVID-19 infection. 3. Pneumomediastinum and right-sided pneumothorax with extensive subcutaneous emphysema. 4. Resolving methicillin-resistant Staph aureus pneumonia. 5. Leukocytosis. 6. Anemia. 7. Thrombocytopenia. 8. Hypokalemia. PLAN: 1. The patient will remain in the prone position. We have decreased the PEEP and pressure above PEEP. We will repeat ABG later today. 2. Infectious Disease has added Diflucan in addition to meropenem and Zyvox. We will continue to monitor cultures and white count. 3. The patient is restarted on Pepcid. 4. Adjust enteral feedings as tolerated. 5. Increase Lasix drip to 15 mg an hour and consult Nephrology. 6. Continue to replace potassium. 7. Case discussed with nightshift nursing, dayshift nursing, Respiratory, Infectious Disease, Nephrology, and administration. Greater than 35 minutes in direct critical care time. MD BRAYAN Rodriguez/AL /[id number]
[2020-06-26] MEDS: LINEZOLID 600 MG/D5W 300ML 300 ML IV SCH ×2 (10:05→22:37)
[2020-06-26] MEDS: ROCURONIUM BROMIDE 1,250 MG in SODIUM CHLORIDE 0.9% 250ML 125 ML IV SCH (10:07)
[2020-06-26] MEDS ORDERED: POTASSIUM CHLORIDE 20MEQ/15ML UDC NG ONE (15:00)
--- NOTE | 2020-06-26 15:33 | Consultation ---
DATE OF CONSULTATION: Initial Nephrology Consultation Report. REASON FOR CONSULTATION: Fluid overload. HISTORY OF PRESENT ILLNESS: Mr. Hurtado is a 55-year-old male, who is admitted to the hospital with COVID pneumonia. Of note, the patient is not able to give history, he is intubated, he is on a ventilator so he cannot give any history so the history is obtained entirely from the patient's medical records, nursing staff and caregivers. The patient was admitted several on June 02. He was admitted with COVID-19 pneumonia and he has been treated as such. He has been on a ventilator and he is vent dependent. Actually, he is mostly in the prone position, whenever he is supine he starts to desaturate. Even right now he is on 100% FiO2. Rhe patient is on a Lasix drip. PAST MEDICAL HISTORY: Apparently there is history of diabetes. PAST SURGICAL HISTORY: Noncontributory. MEDICATIONS: As per MAR. REVIEW OF SYSTEMS: Cannot be obtained. PHYSICAL EXAMINATION: VITAL SIGNS: Blood pressure 128/72, pulse 118. GENERAL: The patient is in the prone position. He is intubated. He is on a ventilator. He does have some anasarca. CARDIOVASCULAR: Tachycardia. LUNGS: Decreased breath sounds and crackles high pitched bilaterally. ABDOMEN: Decreased bowel sounds. EXTREMITIES: Edema all over. LABORATORY DATA: Chemistries; white count is 24.6, sodium 131, potassium 3.7, chloride 86, bicarbonate 37, BUN and creatinine 22 and 0.9 respectively. Urinalysis shows trace protein. IMPRESSION: 1. Anasarca. 2. Fluid overload. 3. COVID pneumonia. 4. Respiratory failure. 5. Proteinuria. PLAN: The patient is on the Lasix drip. Despite that his I's and O's are not very much. He has not really had a negative fluid balance at all. I think ultrafiltration will be an order. We will go ahead and have a Bhaskar catheter placed. We will have him ultrasound with Lasix drip. He is still not in a negative fluid balance. Thank you for allowing me to participate in the care of this patient with you. Ather MD AARON Phillip/MAURILIOL /[id number]
[2020-06-26 16:07] LABS: ABG PCO2 65 mmHg (35-45); ABG PH 7.37 (7.35-7.45)
[2020-06-26 16:08] LABS: ABG HCO3 37 mmol/L (22-26); ABG PO2 64 mmHg (80-105); ABG TCO2 39
[2020-06-26] MEDS: FLUCONAZOLE 200 MG/100 ML 100 ML IV SCH (21:45)
--- NOTE | 2020-06-26 22:03 | NUR ---
infectious disease progress note The patient was seen and examined chart reviewed he remains in intensive care unit very critical Prognosis remains poor Events noted discussed with medical team he patient desaturated yesterday after being placed in the supine position briefly. He was placed back in the prone position. His saturations remained low and his PEEP was increased to 16. His pressure above PEEP was increased to 22. His saturations gradually returned to the low 90s. The patient required additional albumin for borderline hypotension last night. Levophed was never required. He is having some difficulty tolerating his enteral feedings and the enteral feedings were decreased to 30 mL an hour. PHYSICAL EXAMINATION: VITAL SIGNS: Blood pressure is 104/67, saturation is 95% and the pulse is 110 to 115. The patient is afebrile. He is on the pressure control at a rate of 36 with FiO2 of 100%. His PEEP is now 14 and pressure above PEEP is set at 20. HEENT: Shows some facial swelling and edema. He has an oral endotracheal tube. He has a PICC line in place. He has subcutaneous emphysema in the neck and chest. CARDIAC: Reveals regular rate and rhythm with a normal S1 and S2. LUNGS: Auscultation of lungs reveals crackles and rhonchi at the bases. ABDOMEN: Soft and nontender. There is no rebound or guarding. EXTREMITIES: Shows 1 to 2+ leg edema. LABORATORY DATA: White blood cell count is 24. The hemoglobin is 7.4. The platelet count is 152. The BUN to creatinine ratio is 22 to 0.95 and the sodium is 131. Albumin is 3.2. RADIOGRAPHIC DATA: Chest x-ray shows bilateral infiltrates and extensive subcutaneous emphysema. IMPRESSION: 1. Acute respiratory failure. 2. Viral pneumonia and COVID-19 infection. 3. Pneumomediastinum and right-sided pneumothorax with extensive subcutaneous emphysema. 4. Resolving methicillin-resistant Staph aureus pneumonia. 5. Leukocytosis. 6. Anemia. 7. Thrombocytopenia. 8. Hypokalemia. Lab data reviewed culture reviewed continue with antibiotic as ordered Continue aspiration precaution renal consultation is noted continue as planned
[2020-06-26] MEDS: FAMOTIDINE 20 MG/2 ML VIAL IV SCH (22:37)
--- NOTE | 2020-06-26 22:54 | Progress Note ---
DATE: SUBJECTIVE: A 55-year-old gentleman admitted to hospital who is quite critical in the intensive care unit. Unfortunately, the patient is being seen for the following problems quite ill. 1. Acute respiratory failure. 2. Several pneumonia and COVID-19 infection discussed above. 3. Right-sided pneumothorax with pneumomediastinum with extensive subcutaneous emphysema. 4. Leukocytosis. 5. Methicillin-resistant Staph aureus pneumonia resolving after a critical care. 6. Leukocytosis. 7. Hypokalemia. 8. Anemia and thrombocytopenia. The patient remains on the ventilator presently in the prone position. Vent settings noted. PEEP was increased to 22. Saturation has been in the 90s. He is on tube feedings. The patient is in a proper position. The patient's vital signs are as follows. A recent blood pressure has been low at 85/58, respirations 36, pulse 120, temperature 100.0. The patient remains in critical condition. LABORATORY DATA: Disclosed. Hemoglobin 97.9, white blood cell count . Platelet count 152,000. Chem profile revealed sodium 131, potassium 3.7, chloride 86, CO2 37, BUN 22, and creatinine 0.95. PLAN OF CARE: At this point in time. 1. Continue respiratory support on the vent as addressed by Pulmonary. Follow up ABGs. 2. An ID evaluation noted and Diflucan has been added to regimen of treatment and presently on meropenem and Zyvox. 3. The patient is on Lovenox. 4. The patient placed on Pepcid. 5. The patient is on Lasix drip and Nephrology have been consulted. The patient does have hypokalemia on followup potassium level. Events noted and evaluation done by acute care physicians noted and the patient being followed by ID, Dr. Trent, Dr. De Dios from pulmonary standpoint and being followed by Dr. Dunn, a cardiothoracic surgeon. The patient's examination is essentially unchanged. MD PENNY Kraus/AL /[id number]
[2020-06-27] VITALS (27 sets, daily range): BP systolic 48–117; BP diastolic 36–65
[2020-06-27] MEDS: INSULIN LISPRO 100 UNIT/1 ML 3ML VIAL SQ SCH ×4 (00:40→18:00)
[2020-06-27] MEDS: FUROSEMIDE INJ 100 MG in SODIUM CHLORIDE 0.9% 100 ML 90 ML IV SCH ×2 (01:30→19:00)
--- NOTE | 2020-06-27 02:54 | Progress Note ---
DATE: 06/25/2020 SUBJECTIVE: The patient is still in the prone position. His saturations have improved to the low 90s. He remains on pressure control with FiO2 of 100% and PEEP of 14. His pressure above PEEP is 26. His tidal volumes with the settings are in the low 400s. PHYSICAL EXAMINATION: VITAL SIGNS: The patient is afebrile, T-max is 99.7, saturation is 94% on the above-mentioned settings. HEENT: Shows no facial swelling or erythema. There is an oral endotracheal tube. LYMPHATIC EXAMINATION: Shows no submandibular, cervical, supraclavicular adenopathy. There is subcutaneous emphysema bilaterally in the neck and the chest wall. CARDIAC: Reveals regular rate and rhythm with normal S1, S2. LUNGS: Auscultation of lungs reveals rhonchorous breath sounds bilaterally. There is no wheezing. ABDOMEN: Soft and nontender. There is no rebound or guarding. EXTREMITIES: Shows no leg edema or calf tenderness. LABORATORY DATA: Blood gases 7.33, 77, 68, and 40. Sodium is 131 and the potassium is 2.7. The carbon dioxide is 42 and the BUN to creatinine ratio is normal. The other electrolytes are within normal limits and albumin is 3.3. Blood sugars 190. IMPRESSION: 1. Acute respiratory failure. 2. Pneumomediastinum right-sided pneumothorax and extensive subcutaneous emphysema. 3. Viral pneumonia and COVID-19 infection. 4. Worsening leukocytosis. 5. Resolving methicillin-resistant Staph aureus pneumonia. 6. Anemia. 7. Thrombocytopenia. 8. Hypokalemia. PLAN: 1. Continue to adjust ventilator settings as tolerated. 2. Place patient in supine position. 3. Replace PICC line. 4. Continue Zyvox and add meropenem. 5. Urine culture as well as blood culture and stool for C difficile. 6. Continue Lasix drip. 7. Continue Lovenox. 8. Replace potassium. Greater than 35 minutes in direct critical care time. Brayden De Dios MD [facility]/MODL /[id number]
[2020-06-27] MEDS: MIDAZOLAM HCL 5MG/ML 10ML VIAL 100 ML IV PRN ×6 (04:44→23:48)
[2020-06-27] MEDS: FENTANYL 2000MCG/NS 250 250 ML IV PRN ×4 (04:51→19:37)
[2020-06-27 06:47] LABS: ABG HCO3 38 mmol/L (22-26); ABG PCO2 114 mmHg (35-45); ABG PH 7.12 (7.35-7.45); ABG PO2 72 mmHg (80-105); ABG TCO2 41
[2020-06-27 06:48] LABS: BASOPHILS # (AUTO) 0.1 (0.0-0.1); BASOPHILS % 0.3 % (0.0-1.0); EOSINOPHILS # (AUTO) 0.2 (0.0-0.4); EOSINOPHILS % 0.7 % (0.0-6.0); HEMATOCRIT 26.5 % (38.2-49.6); HEMOGLOBIN 8.2 g/dL (14.0-18.0); LYMPHOCYTES # (AUTO) 2.2 (1.0-3.2); LYMPHOCYTES % 6.5 % (18.0-39.1); MEAN CORPUSCULAR HGB CONC 30.9 g/dL (31-35); MEAN CORPUSCULAR VOLUME 103.5 fL (81-99); MONOCYTES # (AUTO) 1.7 (0.2-0.8); MONOCYTES % 4.9 % (4.4-11.3); NEUTROPHILS # (AUTO) 28.9 (2.1-6.9); NEUTROPHILS % 85.6 % (38.7-80.0); PLATELET COUNT 229 x10e3/uL (140-360); RED BLOOD COUNT 2.56 x10e6/uL (4.3-5.7); RED CELL DISTRIBUTION WIDTH 14.6 % (11.7-14.4)
[2020-06-27] MEDS: MEROPENEM 1GM 100 ML IV SCH (06:56)
[2020-06-27] MEDS ORDERED: NOREPINEPHRINE 8 MG/D5W 250 ML 250 ML ONE (07:04)
[2020-06-27 07:07] LABS: ALANINE AMINOTRANSFERASE 54 IU/L (0-55); ALBUMIN 2.9 g/dL (3.5-5.0); ALBUMIN/GLOBULIN RATIO 0.7 (0.8-2.0); ALKALINE PHOSPHATASE 136 IU/L (40-150); ANION GAP 13.1 mmol/L (8-16); BLOOD UREA NITROGEN 33 mg/dL (7-26); BUN/CREATININE RATIO 31 (6-25); CALCIUM 8.4 mg/dL (8.4-10.2); CARBON DIOXIDE 35 mmol/L (22-29); CHLORIDE 88 mmol/L (98-107); CREATININE, SERUM 1.08 mg/dL (0.72-1.25); EST GLOMERULAR FILTRATION RATE > 60 ML/MIN (60-); GLUCOSE 169 mg/dL (74-118); POTASSIUM 4.1 mmol/L (3.5-5.1); SODIUM 132 mmol/L (136-145)
[2020-06-27 07:08] LABS: INR 1.24; PROTHROMBIN TIME 16.3 seconds (11.9-14.5)
[2020-06-27 07:09] LABS: PARTIAL THROMBOPLASTIN TIME 47.2 seconds (23.8-35.5)
[2020-06-27] MEDS ORDERED: NOREPINEPHRINE 8 MG/D5W 250 ML 250 ML IV PRN (07:45)
[2020-06-27] MEDS: FAMOTIDINE 20 MG/2 ML VIAL IV SCH ×2 (08:07→21:00)
[2020-06-27] MEDS: LINEZOLID 600 MG/D5W 300ML 300 ML IV SCH (08:08)
[2020-06-27] MEDS: CHOLECALCIFEROL 1,000 UNIT TAB PO SCH (08:08)
[2020-06-27] MEDS: ZINC SULFATE 220 MG CAP PO SCH (08:08)
[2020-06-27] MEDS: ASCORBIC ACID 500 MG TAB PO SCH ×2 (08:08→21:00)
--- NOTE | 2020-06-27 09:00 | Progress Note ---
DATE: SUBJECTIVE: The patient has remained in the prone position overnight. He has received Lasix drip at 15 mg an hour along with albumin. He still has low urine output and is actually 3 L positive over the past 24 hours. Blood gas earlier this morning showed an elevated CO2 and his pressure control was increased to 26 with a PEEP of 10. His FiO2 is at 100%. His rate is set at 36. PHYSICAL EXAMINATION: VITAL SIGNS: The blood pressure is now 90/60 on a small dose of Levophed. His heart rate is 110 to 120. His T-max is 103, although he is afebrile now. He remains on a pressure control at a rate of 36 with a pressure above PEEP of 36 and a PEEP of 10. His FiO2 is set at 100%. HEENT: Shows no facial swelling or erythema. LYMPHATIC: Shows no submandibular, cervical, or supraclavicular adenopathy. NECK: Show subcutaneous emphysema bilaterally. He also has subcutaneous emphysema in the chest wall. CARDIAC: Reveals regular rate and rhythm with normal S1 and S2. LUNGS: Auscultation of lungs reveals decreased breath sounds at the bases. There is no wheezing. ABDOMEN: Soft and nontender. There is no rebound or guarding. EXTREMITIES: Shows no leg edema or calf tenderness. There is no cyanosis or clubbing. SKIN: Shows no rashes. NEUROLOGICAL: Shows no focal abnormalities. LABORATORY DATA: White blood cell count is 33.7, hemoglobin is 8.2, and the platelet count is 229. The BUN to creatinine ratio is 33 to 1.08. The chloride is 88. The blood sugar is 169/226. The albumin is 2.9. RADIOGRAPHIC DATA: Chest x-ray shows multifocal interstitial airspace opacities throughout both lungs. There is also significant subcutaneous emphysema. MICROBIOLOGICAL DATA: Sputum is growing out gram-negative bacilli. IMPRESSION: 1. Acute respiratory failure. 2. Viral pneumonia and COVID-19 infection. 3. Acute renal failure with volume overload and anasarca. 4. Pneumomediastinum and right-sided pneumothorax with extensive subcutaneous emphysema. 5. Gram-negative mauricio pneumonia with sepsis. 6. Anemia. 7. Thrombocytopenia. 8. Diabetes. PLAN: 1. The patient will require dialysis with ultrafiltration today. 2. Continue current ventilator settings and repeat ABG in 2 hours. 3. Hold Lovenox for one dose prior to dialysis catheter placement and then resume Lovenox. 4. Taper antibiotics to cover for gram-negative rods in the sputum. 5. Repeat blood cultures. 6. Wean norepinephrine as tolerated. 7. Continue enteral feedings. 8. Continue to monitor and control blood sugars. 9. Continue chest tubes to suction. 10. Prognosis remains guarded. The patient is in critical condition. Greater than 35 minutes in direct critical care time. Brayden De Dios MD [facility] /[id number]
[2020-06-27 09:32] LABS: ABG PCO2 > 130 mmHg (35-45); ABG PH 7.03 (7.35-7.45); ABG PO2 81 mmHg (80-105)
[2020-06-27] MEDS ORDERED: VECURONIUM BROMIDE FOR INJ 20 MG VIAL IV STA (09:50)
[2020-06-27] MEDS ORDERED: SODIUM BICARBONATE 8.4% INJ 50 ML SYR IV STA (09:51)
--- NOTE | 2020-06-27 10:05 | Diagnostic Imaging Report ---
Examination: Single AP view of the chest. COMPARISON: Chest radiograph 06/25/2020, CT chest 06/22/2020 INDICATION: Barotrauma DISCUSSION: Endotracheal tube, enteric tube, and 2 right-sided chest tubes are unchanged. Right upper extremity PICC is faintly visualized, with the tip probably projecting over the low superior vena cava. No appreciable interval change in confluent coarse interstitial opacities throughout the lungs; no definite pneumothorax, though evaluation continues to be limited by extensive subcutaneous gas along the bilateral chest espinoza and lower cervical region. No acute osseous abnormalities. Enteric contrast opacifies the partially visualized transverse colon. IMPRESSION: Stable position of support lines and tubes. Unchanged pulmonary findings suggestive of multifocal pneumonia with superimposed ARDS. Extensive regional subcutaneous emphysema. Signed by: Dr. Rickie Duenas M.D. on 06/27/2020 10:02 AM
--- NOTE | 2020-06-27 11:01 | NUR ---
DR WAGGONER INCREASED PC AFTER 2ND ABG PLACED Pt IN SUPINE POSITION @ [address] WAGGONER
[2020-06-27 11:13] LABS: ABG HCO3 38 mmol/L (22-26); ABG PCO2 83 mmHg (35-45); ABG PH 7.27 (7.35-7.45); ABG PO2 50 mmHg (80-105); ABG TCO2 41
[2020-06-27] MEDS: BALSAM PERU/CASTOR OIL 60 GM OINT...G. TP SCH ×2 (11:18→21:00)
[2020-06-27 11:42] LABS: LYMPHOCYTES % (MANUAL) 7 % (19-48); MONOCYTES % (MANUAL) 3 % (3.4-9.0); NEUTROPHILS % (MANUAL) 90 % (40-74)
--- NOTE | 2020-06-27 11:56 | Operative Report ---
DATE OF PROCEDURE: SURGEON: Brayden De Dios MD PROCEDURE: Trialysis catheter placement under ultrasound guidance. PREOPERATIVE DIAGNOSIS: Anasarca and acute renal failure. POSTOPERATIVE DIAGNOSIS: Anasarca and acute renal failure. CONSENT: Consent was obtained from the . MEDICATIONS: 1% lidocaine for local anesthesia. DESCRIPTION OF PROCEDURE: The patient was placed in a supine position. The left groin was prepped sterilely with chlorhexidine. A full length sterile drape, sterile gown, sterile mask, and sterile gloves were used. 1% lidocaine was used to anesthetize the area inferior to the inguinal ligament and superficial to the femoral vessels. An ultrasound machine was used to locate the left femoral vein. The left femoral vein was cannulized under direct visualization with a 16-gauge needle. A wire was passed through the needle. A series of dilators were then used to open the skin. A Trialysis catheter 20 cm in length was placed over the wire by the Seldinger technique. All the ports flushed. COMPLICATIONS: None. ESTIMATED BLOOD LOSS: None. Brayden De Dios MD [facility]/MODL /[id number]
[2020-06-27] MEDS ORDERED: SODIUM CHLORIDE 0.9% 1000ML 2,000 ML ONE (12:52)
[2020-06-27] MEDS ORDERED: SODIUM CHLORIDE 0.9% 1000ML 2,000 ML IV PRN (13:00)
[2020-06-27] MEDS ORDERED: HEPARIN SOD (PORCINE) 1000 UNIT/ML SDV IV PRN (13:00)
[2020-06-27 14:08] LABS: AMYLASE 31 U/L (25-125); LIPASE 18 U/L (8-78)
[2020-06-27] MEDS ORDERED: ATROPINE SULFATE 0.1 MG/ML 10ML SYR ONE (15:07)
[2020-06-27] MEDS ORDERED: EPINEPHRINE HCL SYRINGE ONE (15:07)
[2020-06-27] MEDS ORDERED: SODIUM BICARBONATE 8.4% 50 ML VIAL ONE (15:07)
[2020-06-27] MEDS: METRONIDAZOLE 500MG/NS 100ML 100 ML IV SCH ×2 (15:18→22:50)
[2020-06-27] MEDS: ENOXAPARIN INJ 80 MG/0.8 ML SYR SC SCH ×2 (15:18→21:00)
--- NOTE | 2020-06-27 15:42 | Progress Note ---
DATE: SUBJECTIVE: Mr. Hurtado remains in intensive care unit. The patient, who has been here for 25 days. He is currently on Lasix drip, on ventilator. Setting reviewed. OBJECTIVE: VITAL SIGNS: Stable. Blood pressure 90/60 on Levophed, heart rate 120. He had 103. HEENT: Normocephalic. CHEST: Crackles bilateral. HEART: S1 and S2. ABDOMEN: Soft. Bowel sounds present. EXTREMITIES: No edema. LABORATORY DATA: White count 33,000, hemoglobin 8.2, and platelets of 229. IMPRESSION: Sepsis. We will get blood cultures. We know he had Pseudomonas in his sputum as well as MRSA. Anemia of chronic disease. We will get CT of abdomen, pelvis, and chest. Concerned about Clostridium difficile colitis. He is currently on linezolid, meropenem, and fluconazole. He is getting worse on this combination. We will get a CT. We will get amylase and lipase. We will start him on IV Flagyl and oral vancomycin until we get the CT and then we will reassess. MD MARA Sarmiento/MODL /[id number]
[2020-06-27] MEDS: ROCURONIUM BROMIDE 1,250 MG in SODIUM CHLORIDE 0.9% 250ML 125 ML IV SCH (17:04)
[2020-06-27] MEDS ORDERED: ALBUMIN 25% 25GM 100ML 0.25 GM/ML BTL IV STA (17:42)
[2020-06-27] MEDS ORDERED: SODIUM BICARBONATE 8.4% SYRING 100 ML ONE (17:44)
[2020-06-27] MEDS: VANCOMYCIN 250MG/5ML ORAL SOLN PO SCH (18:14)
[2020-06-27] MEDS ORDERED: ALBUMIN 25% 25GM 100ML 200 ML IV ONE (18:15)
--- NOTE | 2020-06-27 18:24 | Progress Note ---
DATE: 06/27/2020 Renal Progress Note SUBJECTIVE: Events over the past 24 hours have been noted and earlier this morning the patient was desaturating. The patient remains on a ventilator. He was already on 50 mg an hour of the Lasix drip. It was decided that he needed to have urgent ultrafiltration, so a Bhaskar catheter was placed in urgently. PHYSICAL EXAMINATION: VITAL SIGNS: Blood pressure 92/56, pulse 115, the patient actually is now on pressors. He is on two different pressors and his oxygen saturation is actually very low. GENERAL: The patient is on the ventilator. He does have some generalized anasarca. CARDIOVASCULAR: Tachycardia. LUNGS: Crackles and high-pitched squeal everywhere. LABORATORY RESULTS: Sodium 130, potassium 4.1, chloride 88, bicarbonate 35, BUN and creatinine 33 and 1.08 respectively. IMPRESSION AND PLAN: 1. Fluid overload. 2. Coronavirus disease pneumonia. 3. Respiratory failure. 4. Anasarca. 5. Hypotension. 6. Shock. The patient's current condition is very critical and we have started to do ultrafiltration, however even during the ultrafiltration they had to change him to the prone position because he was desaturating. His oxygen saturation is still very, very low and he is also requiring multiple pressors to keep his blood pressure up. Ultrafiltration is finished, we have taken off about 3.8 L. I will go ahead and restart the Lexapro 10 mg an hour. The family is visiting the patient. The patient's situation is very critical. I do not expect him to survive the night. He is, however, full code. Ather MD AARON Phillip/AL /[id number]
--- NOTE | 2020-06-27 19:24 | Progress Note ---
DATE: 06/27/2020 SUBJECTIVE: Events noted. OBJECTIVE: VITAL SIGNS: Blood pressure 85/56, respiration 26, pulse 128, temperature 98.6. The patient's prognosis is not good. Given the patient's condition, presently on the ventilator. The patient is being followed up by ID pertaining blood cultures. LAB DATA: Reviewed. IMPRESSION: 1. Acute respiratory failure. 2. Severe pneumonia secondary to COVID-19 infection. 3. Right-sided pneumothorax with pneumomediastinum with extensive subcutaneous emphysema. 4. Leukocytosis. 5. Methicillin-resistant Staph aureus pneumonia. 6. Leukocytosis. 7. . 8. Anemia. 9. Thrombocytopenia. PLAN OF CARE: Continue present care as advised. Continue supportive care. Pulmonary/ evaluation noted. ID evaluation noted as well. MD PENNY Kraus/MODL /[id number]
[2020-06-27] MEDS: PHENYLEPHRINE 10MG/ML VIAL 40 MG in DEXTROSE 5% 250ML 250 ML IV SCH ×2 (19:55→22:37)
[2020-06-27 20:33] LABS: ABG HCO3 34 mmol/L (22-26); ABG PCO2 87 mmHg (35-45); ABG PH 7.19 (7.35-7.45); ABG PO2 47 mmHg (80-105)
[2020-06-27 20:34] LABS: ABG TCO2 36
[2020-06-27] MEDS: SODIUM BICARBONATE 8.4% 150 ML in DEXTROSE 5% 1,000 ML IV SCH (20:57)
[2020-06-27] MEDS: EPINEPHRINE HCL 1:1000 1ML 4 MG in DEXTROSE 5% 250ML 250 ML IV SCH (20:57)
--- NOTE | 2020-06-27 22:44 | NUR ---
Notified Dr. Alissa De Dios of PM ABG results. Orders to d/c Lasix gtt.
[2020-06-27 22:54] LABS: ABG HCO3 26 mmol/L (22-26); ABG PCO2 87 mmHg (35-45); ABG PH 7.07 (7.35-7.45); ABG PO2 60 mmHg (80-105)
[2020-06-27 22:55] LABS: ABG TCO2 28
[2020-06-27] MEDS ORDERED: NOREPINEPHRINE 8 MG/D5W 250 ML 500 ML ONE (23:21)
[2020-06-27] MEDS: NOREPINEPHRINE INJ 4MG/4ML 16 MG in DEXTROSE 5% 250ML 250 ML IV PRN (23:48)
[2020-06-28] VITALS (26 sets, daily range): BP systolic 34–85; BP diastolic 29–57
[2020-06-28] MEDS: INSULIN LISPRO 100 UNIT/1 ML 3ML VIAL SQ SCH ×3 (00:20→13:16)
[2020-06-28] MEDS: VANCOMYCIN 250MG/5ML ORAL SOLN PO SCH ×4 (00:24→18:30)
[2020-06-28] MEDS: FENTANYL 2000MCG/NS 250 250 ML IV PRN ×3 (01:46→20:17)
[2020-06-28] MEDS: ACETAMINOPHEN 325 MG TAB PO PRN ×2 (02:45→21:50)
[2020-06-28] MEDS ORDERED: VASOPRESSIN INJ 20 UNIT/ML VIAL ONE ×2 (04:06→04:41)
[2020-06-28] MEDS ORDERED: DEXTROSE 5% 250ML 250 ML IV ONE (04:12)
[2020-06-28] MEDS: MIDAZOLAM HCL 5MG/ML 10ML VIAL 100 ML IV PRN ×3 (04:15→20:16)
[2020-06-28] MEDS ORDERED: PHENYLEPHRINE HCL 1% 10 MG/ML VIAL ONE (04:22)
[2020-06-28] MEDS ORDERED: DEXTROSE 5% 100ML 100 ML IV ONE (04:23)
[2020-06-28] MEDS: VASOPRESSIN 60 UNIT in DEXTROSE 5% 50ML 57 ML IV PRN (04:49)
[2020-06-28] MEDS: SODIUM BICARBONATE 8.4% 150 ML in DEXTROSE 5% 1,000 ML IV SCH ×2 (05:00→14:18)
[2020-06-28] MEDS: FUROSEMIDE INJ 100 MG in SODIUM CHLORIDE 0.9% 100 ML 90 ML IV SCH ×5 (06:00→18:00)
[2020-06-28] MEDS: METRONIDAZOLE 500MG/NS 100ML 100 ML IV SCH ×3 (06:00→22:29)
[2020-06-28 06:39] LABS: CREATINE KINASE MB 1.6 ng/mL (0-5.0)
[2020-06-28] MEDS: PHENYLEPHRINE 10MG/ML VIAL 40 MG in DEXTROSE 5% 250ML 250 ML IV SCH ×3 (06:59→20:16)
[2020-06-28] MEDS: EPINEPHRINE HCL 1:1000 1ML 4 MG in DEXTROSE 5% 250ML 250 ML IV SCH ×7 (07:27→22:29)
[2020-06-28] MEDS: FAMOTIDINE 20 MG/2 ML VIAL IV SCH ×2 (08:55→21:50)
[2020-06-28] MEDS: ENOXAPARIN INJ 80 MG/0.8 ML SYR SC SCH ×2 (08:55→21:50)
[2020-06-28] MEDS: ZINC SULFATE 220 MG CAP PO SCH (09:00)
[2020-06-28] MEDS: ASCORBIC ACID 500 MG TAB PO SCH ×2 (09:00→21:50)
[2020-06-28] MEDS: CHOLECALCIFEROL 1,000 UNIT TAB PO SCH (09:00)
[2020-06-28 09:40] LABS: ABG HCO3 27 mmol/L (22-26); ABG PCO2 89 mmHg (35-45); ABG PO2 60 mmHg (80-105); ABG TCO2 30
[2020-06-28 09:42] LABS: BASOPHILS # (AUTO) 0.1 (0.0-0.1); BASOPHILS % 0.1 % (0.0-1.0); EOSINOPHILS # (AUTO) 0.2 (0.0-0.4); EOSINOPHILS % 0.4 % (0.0-6.0); HEMATOCRIT 24.2 % (38.2-49.6); HEMOGLOBIN 7.3 g/dL (14.0-18.0); LYMPHOCYTES # (AUTO) 3.5 (1.0-3.2); LYMPHOCYTES % 7.8 % (18.0-39.1); MEAN CORPUSCULAR HEMOGLOBIN 31.5 pg (28-32); MEAN CORPUSCULAR HGB CONC 30.2 g/dL (31-35); MEAN CORPUSCULAR VOLUME 104.3 fL (81-99); MONOCYTES # (AUTO) 2.5 (0.2-0.8); MONOCYTES % 5.5 % (4.4-11.3); NEUTROPHILS # (AUTO) 36.8 (2.1-6.9); NEUTROPHILS % 81.9 % (38.7-80.0); PLATELET COUNT 197 x10e3/uL (140-360); RED BLOOD COUNT 2.32 x10e6/uL (4.3-5.7); RED CELL DISTRIBUTION WIDTH 15.4 % (11.7-14.4)
[2020-06-28] MEDS: BALSAM PERU/CASTOR OIL 60 GM OINT...G. TP SCH ×2 (09:46→21:50)
[2020-06-28 10:01] LABS: ANION GAP 33.8 mmol/L (8-16); CALCIUM 7.6 mg/dL (8.4-10.2); POTASSIUM 4.8 mmol/L (3.5-5.1)
[2020-06-28 10:09] LABS: CREATININE, SERUM 2.42 mg/dL (0.72-1.25)
--- NOTE | 2020-06-28 11:55 | NUR ---
ASSESSMENT: Spiritual distress Burrer Hand called pt's daughter. Pt's daughter worried about father's declining health. Pt's daughter states her mother is coping with her father's illness "better" than she is. Intervention: Provided empathic listening. Provided prayer and reminded her of how to reach furnace unloader, if needed. Outcome: Pt's daughter expressed appreciation for support. Will continue to follow as able. ZAINAB Gibbslain Spiritual Care Department O: [phone]
[2020-06-28] MEDS: NOREPINEPHRINE INJ 4MG/4ML 16 MG in DEXTROSE 5% 250ML 250 ML IV PRN ×2 (12:59→21:51)
[2020-06-28] MEDS ORDERED: VANCOMYCIN 1GM/NS 250 ML 250 ML IV SCH (14:15)
[2020-06-28] MEDS ORDERED: CEFEPIME 1GM/NS 0.9% 50 ML 50 ML IV SCH (14:15)
--- NOTE | 2020-06-28 14:49 | NUR ---
Nutrition Intervention Note RD Recommendation(s) for Physician: -TF not meeting needs > 7 days and pt on high dose pressors, recommend initiating TPN of 1008 ml/day at 42 ml/hr of (D30W/500ml), (AA10%/500ml), Lipids 25 g/day, NaCl 60 mEq/L, Ca Gluconate 4.6 mEq/L, K Phos 10 mmol/L, no Magnesium for now. Add MVI, trace, thiamine. - BG and insulin management per MD. - Please continue to monitor BMP with Mg and Phos closely. Replace low lytes as needed. -When hemodynamically stable, resume TF of Vital AF 1.2 at 10 ml/hr. As feasible advance to goal rate of 60 mL/hr (provides 1728 kcal, 108 g protein). Pt may be fed at goal rate when prone in reverse Trendelenburg position with HOB 10-25 degrees -Fluid management per MD. Plan of Care: RD following, monitoring for tolerance and adequacy, TF and TPN rec's Nutrition reason for involvement: follow up RD Assessment 06/28: Follow up. Pt remains intubated, sedated, and paralyzed. Pt currently in prone position, observed outside room at time of visit. Pt dialyzed yesterday per MD notes, requiring ultrafiltration. Pt on multiple high dose pressors, TF off. Pt prognosis poor per MD notes. TPN rec's provided pending plan of care, placed in chart for MD and RN notified. Chart reviewed. Will continue to monitor. 06/24: Follow up. Chart reviewed. Pt remains intubated and is in the prone position. Pts tube feeding is at 35 mL/hr per documentation. Recommend increasing towards goal rate of 60 mL/hr. Pt may be fed at goal rate when prone in reverse Trendelenburg position with HOB 10-25 degrees. BM still not documented. Will continue to monitor. 06/20: Follow up. Chart reviewed. Pt remains intubated. TF is infusing at 30 mL/her per chart. Recommend increasing towards goal as medically appropriate. BM still not documented. Will continue to monitor. 06/15: Follow up. Pt remains intubated, sedated, and paralyzed. Pt requiring intermittent proning. TF of Glucerna 1.2 infusing at 10 ml/hr- pt tolerating trickle feeds, however not meeting needs. Pt with no documented BM since initiation of TF, no flatus and hypoactive BS currently. RD to manage TF order per Dr. De Dios. TPN rec's provided pending inability to advance TF to goal rate. 06/10: Early follow up due to initiation of enteral nutrition. Pt is now intubated and tube feed order was placed yesterday per chart. Tube feed recommendations provided. Will continue to monitor (06/06/20) Chart reviewed. Labs and meds reviewed. RD received consult for nutrition assessment. Pt is a 55 year old male admitted with acute respiratory distress and COVID-19. Pt is in the [facility] ICU and RD is unable to enter room due to isolation precautions. RD called pt's nurse over the phone. RN stated pt is eating well and is consuming >50% of meals. Speech therapy evaluated pt and recommended a nectar thick liquid diet at this time and a modified barium swallow study be performed to rule out aspiration. Will continue to monitor Principal Problems/Diagnoses: acute respiratory distress, COVID-19 PMH: Diabetes. I/O: 1568/2525 GI: LBM 06/28- "copious" liquid; + NGT Skin: suspected DTI L cheek, suspected DTI bilateral ears Labs: 06/28: Na 130, K 4.8, BUN 55, Cr 2.42, Gluc 272, Ca 7.6, Mg 2.2, POC Gluc 277-325 06/24: Na 132, K 3.3, Cr 0.54, Glu 173, Ca 8.4 (06/20) Na 137, K 3.9, BUN 11, Cr 0.43, Glu 142, Ca 8.3 06/15: Na 138, K 4.3, BUN 17, Cr 0.54, Gluc 187, POC Gluc 184-204 06/14: CRP 96 (06/10) Na 133, K 4.4, BUN 15, Cr 0.67, Glu 295, Ca 7.7 Meds: abx, lispro, pepcid, zinc sulfate, vitamin C, vitamin D IVF/Drips: Epinephrine at 35 mcg/min, Levophed at 10 mcg/min, Vasopressin at 4.2 ml/hr, Phenylephrine drip, Rocuronium drip, Versed drip Ht: 70 in Wt: 188 lbs (06/28)- probable fluid gain, 171.06 (06/17) 171 lbs (06/15) 172 lbs(06/09) 170 lb (06/06) BMI: 24.4 kg/m2 using wt of 170 lbs IBW:166 lb Malnutrition Evaluation (06/28/20) Pt does not meet criteria for malnutrition at this time. Will continue to re-evaluate as appropriate. Intake adequacy: Acute moderate- TF meeting <50% of estimated needs > 7 days Wt loss: None- no wt loss is evident Fat loss: none observed upon observation outside pt room, ample skinfold thickness of arm Muscle loss: none observed upon observation outside pt room, should round Edema: moderate- +2 edema per RN physical documentation on 06/28- pt on HD, fluid status not related to nutrition Functional status: DEMETRIO, pt intubated and sedated in [facility] ICU Nutrition Prescription (Diet Order): Vital AF 1.2 @ 60 mL/hr - TF off Estimated Nutritional Needs: 2612-8844 calories/day (20-25 kcal/kg CBW) 93-155 g protein/day (1.2-2 g pro/kg CBW) Diet Adequacy: Not meeting calorie needs, Not meeting protein needs Tolerance: pending, previously tolerating TF Diet Education Needs Assessment: Diet education not indicated, pt is intubated Nutrition Care Level: high- not meeting needs, high dose pressors Nutrition Diagnosis: Inadequate oral intake related to acute respiratory failure/mechanical ventilation as evidenced by need for enteral nutrition. Goal: Patient will meet 75-100% of estimated needs by follow up Progress: goal not met Interventions: -Composition, Rate, Route Monitoring/Evaluation: -Total energy intake, Total protein intake, Formula/Solution, Weight change Signed: Mirtha Ross RD, LD, CNSC
--- NOTE | 2020-06-28 15:03 | Progress Note ---
DATE: SUBJECTIVE: Mr. Hurtado is not doing well. He is on vasopressors. Intubated and sedated. He has generalized edema. Family aware. Discussed with them yesterday. They are aware of his grim prognosis. The patient is currently on insulin, vasopressors, metronidazole, and vancomycin p.o. We could not obtain a CAT scan to assess him. LABORATORY DATA: His white count is 44.95 and hemoglobin 7.4. His sodium 130, potassium 4.3, and creatinine 2.42. IMPRESSION: Multiorgan failure, not responding to treatment and is eminent. Continue with antibiotic. We will put him on vancomycin, cefepime, and Diflucan. MD MARA Sarmiento/MODL /[id number]
--- NOTE | 2020-06-28 17:28 | Progress Note ---
DATE: 06/28/2020 Renal Progress Note SUBJECTIVE: Events over the past 24 hours have been noted. The patient has decompensated. He is actually very hypertensive and has tremendous hemodynamic instability. He is actually on 4 pressors now and his blood pressure is at 54/41 and sometimes even go down to the 40s. The patient is in the prone position. In the last 24 hours, his fluid balance is 5415 in, 4145 out, and net of 1270 positive. Yesterday, we took off 3.8 L with ultrafiltration. He is still very anasarca and has respiratory failure. He is in the prone position. PHYSICAL EXAMINATION: GENERAL: The patient is in a prone position. VITAL SIGNS: Blood pressure 40/20. CARDIOVASCULAR: Tachycardia. LUNGS: Crackles, high-pitched wheezes bilaterally. EXTREMITIES: Edema everywhere. LABORATORY RESULTS: Sodium 130, potassium 4.8, chloride 80, bicarbonate 21, BUN and creatinine 55 and 2.4. Hemoglobin and hematocrit are 7 and 24 respectively. IMPRESSION/PLAN: 1. Respiratory failure. 2. Fluid overload. 3. Coronavirus pneumonia. 4. Anasarca. 5. Hypotension. 6. Shock. PLAN: There is no way we can do ultrafiltration. He is very hemodynamically unstable. He is on 4 pressors and he does not have a blood pressure, but he is compatible with life. The patient should be made DNR and comfort care measures should be taken. Ather MD AARON Phillip/AL /[id number]
[2020-06-28] MEDS: ROCURONIUM BROMIDE 1,250 MG in SODIUM CHLORIDE 0.9% 250ML 125 ML IV SCH (18:28)
--- NOTE | 2020-06-28 22:30 | NUR ---
Spoke to pts Amanda and daughter Odessa to update on current vitals and situation. Offered emotional support & education. Family stated they would like to continue doing everything for Mr. Hurtado regardless of the possible outcomes. Will continue to closely monitor and resume pt as FULL CODE, updating family as needed. Current ABP 36/32 (34)-maxed on levo, vaso, puja, and epi. Peter has been on hold and sedation has been titrated down-fentanyl @ 175 mcg & versed @ 5 mcg. SpO2 saturation 60-70% on ventilator with PC settings of Fi02 100%/16/40/PC above PEEP 28. Pt synching with ventilator and getting TV, breathing 40 BPM. HR 110-120. Urine output remains very minimal. Bilat. CT output remains minimal. Pt is very edematous & extremities remain cold and pale. Patient remains in prone position.
[2020-06-29] VITALS (13 sets, daily range): BP systolic 32–36; BP diastolic 28–32
[2020-06-29] MEDS: SODIUM BICARBONATE 8.4% 150 ML in DEXTROSE 5% 1,000 ML IV SCH ×2 (00:04→09:17)
[2020-06-29] MEDS: FUROSEMIDE INJ 100 MG in SODIUM CHLORIDE 0.9% 100 ML 90 ML IV SCH ×3 (00:05→12:36)
[2020-06-29] MEDS: VANCOMYCIN 250MG/5ML ORAL SOLN PO SCH ×2 (00:34→06:00)
[2020-06-29] MEDS: EPINEPHRINE HCL 1:1000 1ML 4 MG in DEXTROSE 5% 250ML 250 ML IV SCH ×5 (00:40→12:34)
[2020-06-29] MEDS: PHENYLEPHRINE 10MG/ML VIAL 40 MG in DEXTROSE 5% 250ML 250 ML IV SCH ×4 (00:41→12:34)
[2020-06-29] MEDS: VASOPRESSIN 60 UNIT in DEXTROSE 5% 50ML 57 ML IV PRN (05:26)
[2020-06-29] MEDS: MIDAZOLAM HCL 5MG/ML 10ML VIAL 100 ML IV PRN (05:27)
[2020-06-29] MEDS: INSULIN LISPRO 100 UNIT/1 ML 3ML VIAL SQ SCH ×3 (06:00→12:00)
[2020-06-29] MEDS: METRONIDAZOLE 500MG/NS 100ML 100 ML IV SCH (06:00)
[2020-06-29] MEDS: CHOLECALCIFEROL 1,000 UNIT TAB PO SCH (08:59)
[2020-06-29] MEDS: FAMOTIDINE 20 MG/2 ML VIAL IV SCH (08:59)
[2020-06-29] MEDS: ENOXAPARIN INJ 80 MG/0.8 ML SYR SC SCH (08:59)
[2020-06-29] MEDS: ZINC SULFATE 220 MG CAP PO SCH (08:59)
[2020-06-29] MEDS: ASCORBIC ACID 500 MG TAB PO SCH (08:59)
[2020-06-29] MEDS: BALSAM PERU/CASTOR OIL 60 GM OINT...G. TP SCH (08:59)
--- NOTE | 2020-06-29 10:25 | NUR ---
Engineering Project Manager provided prayer for pt w/ assistance of RN. Will continue to follow as able. ZAINAB Calzada Spiritual Care Department O: [phone]
[2020-06-29 11:30] LABS: ABG PH 6.94 (7.35-7.45)
[2020-06-29 11:31] LABS: ABG HCO3 13 mmol/L (22-26); ABG PCO2 61 mmHg (35-45); ABG PO2 57 mmHg (80-105); ABG TCO2 15
[2020-06-29] MEDS: NOREPINEPHRINE INJ 4MG/4ML 16 MG in DEXTROSE 5% 250ML 250 ML IV PRN (12:36)
--- NOTE | 2020-06-29 12:47 | Progress Note ---
DATE: SUBJECTIVE: The patient continues to do poorly. He is on maximum Levophed, maximum Peng-Synephrine, and maximum epinephrine. His blood pressure is still 50 to 60 systolic. He remains on a PRVC mode of ventilation at a rate of 40 and his saturations are in the 70s. PHYSICAL EXAMINATION: VITAL SIGNS: The patient is afebrile. The blood pressure is 60/30 and the pulse is 90. Temperature is 94.9. HEENT: Shows facial swelling and subcutaneous emphysema. There is an oral endotracheal tube. CARDIAC: Reveals regular rate and rhythm with normal S1, but distant heart sounds. There is subcutaneous emphysema anteriorly. LUNGS: There are some crackles at the bases. Lungs are otherwise clear. ABDOMEN: Soft. EXTREMITIES: There is leg edema. There is edema in the hands as well. LABORATORY DATA: Blood gases; 6.9 with a CO2 of 61 and an O2 of 57. White blood cell count is 45. BUN to creatinine ratio is 55 to 2.42. The patient is not urinating. IMPRESSION: 1. Acute renal failure. 2. Acute respiratory failure. 3. Gram-negative mauricio pneumonia with severe sepsis. 4. Anemia. 5. Diabetes. 6. Thrombocytopenia. PLAN: 1. Continue current ventilator settings. 2. Continue pressors. 3. Continue antibiotics. 4. Prognosis remains extremely poor. 5. Family is aware of the poor prognosis. They are psychologically prepared for his passing away. They have opted against DNR because of the emotional stress of making a decision to terminate his medical support. Brayden De Dios MD [facility]/MAURILIOL /[id number]
--- NOTE | 2020-06-29 14:34 | NUR ---
Patient went into asystoly at 13:14. Code team and attending at bedside. Chest compressions started. 1 Epi, 1 amp of bicarb given. Maxed out on 4 pressors and ventilator settings. Pronounced at 13:20. and daughter Odessa notified.
== END 2020-06-29 20:30 | disposition expired | DRG 207 ==
LOC: ER 14:50 → ERHOLD 15:01 → IMCU 17:18 → COVIDICU 06-03 17:32 → IMCU 06-03 18:38 → COVIDICU 06-03 19:05 → ICU 06-22 03:56
PROVIDERS: ADMIT Internal Medicine; ATTEND Internal Medicine
PROC: XW033E5 Introduction of Remdesivir Anti-infective into Peripheral Vein, Percutaneous Approach, New Technology Group 5 (ICD-10-PCS; 2020-06-03)
PROC: 0BH17EZ Insertion of Endotracheal Airway into Trachea, Via Natural or Artificial Opening (ICD-10-PCS; principal; 2020-06-08)
PROC: 5A1955Z Respiratory Ventilation, Greater than 96 Consecutive Hours (ICD-10-PCS; 2020-06-08)
PROC: 03HY32Z Insertion of Monitoring Device into Upper Artery, Percutaneous Approach (ICD-10-PCS; 2020-06-09)
PROC: 02HV33Z Insertion of Infusion Device into Superior Vena Cava, Percutaneous Approach (ICD-10-PCS; 2020-06-09)
PROC: 0W9930Z Drainage of Right Pleural Cavity with Drainage Device, Percutaneous Approach (ICD-10-PCS; 2020-06-14)
PROC: 3E043XZ Introduction of Vasopressor into Central Vein, Percutaneous Approach (ICD-10-PCS; 2020-06-19)
PROC: 0W9900Z Drainage of Right Pleural Cavity with Drainage Device, Open Approach (ICD-10-PCS; 2020-06-22)
PROC: 06HN33Z Insertion of Infusion Device into Left Femoral Vein, Percutaneous Approach (ICD-10-PCS; 2020-06-27)
PROC: 5A1D70Z Performance of Urinary Filtration, Intermittent, Less than 6 Hours Per Day (ICD-10-PCS; 2020-06-27)
PROC: 5A12012 Performance of Cardiac Output, Single, Manual (ICD-10-PCS; 2020-06-27)
DX: U07.1 COVID-19 (principal); J12.89 Other viral pneumonia; J96.01 Acute respiratory failure with hypoxia; A41.9 Sepsis, unspecified organism; J15.6 Pneumonia due to other Gram-negative bacteria; J15.9 Unspecified bacterial pneumonia; J96.02 Acute respiratory failure with hypercapnia; B37.1 Pulmonary candidiasis; J15.212 Pneumonia due to Methicillin resistant Staphylococcus aureus; R65.21 Severe sepsis with septic shock; N17.9 Acute kidney failure, unspecified; J93.9 Pneumothorax, unspecified; E87.1 Hypo-osmolality and hyponatremia; G93.40 Encephalopathy, unspecified; J98.2 Interstitial emphysema; F17.210 Nicotine dependence, cigarettes, uncomplicated; R51 Headache; E87.6 Hypokalemia; E11.65 Type 2 diabetes mellitus with hyperglycemia; E88.09 Other disorders of plasma-protein metabolism, not elsewhere classified; R13.12 Dysphagia, oropharyngeal phase; D69.6 Thrombocytopenia, unspecified; R00.0 Tachycardia, unspecified; E87.70 Fluid overload, unspecified
CPT/HCPCS: 31500; 36415; 36569; 36600; 70450; 71045; 71250; 74018; 74230; 80048; 80053; 80076; 81001; 82150; 82550; 82553; 82728; 82805; 82948; 83615; 83690; 83735; 84100; 84145; 84436; 84443; 84479; 84484; 85025; 85379; 85610; 85730; 86140; 86704; 86705; 86706; 86850; 86900; 87040; 87070; 87186; 87205; 87340; 90962; 92950; 93970; 94002; 94003; 96372; 99284; J0171; J0456; J0692; J0696; J1100; J1450; J1644; J1650; J1940; J2001; J2020; J2250; J2370; J2930; J3370; J3475; J3480; J7030; J7040; J7050; J7070; J7120; J7121; P9017; P9047; U0002